=== PATIENT | female | born 1935 | race Caucasian/White ===

== ENCOUNTER 2017-11-25 23:14 | Inpatient (IN) | payer OTHER, MEDICARE ==
[~2017-11-25] VITALS: Ht 172.7 cm; Wt 51.0 kg
[~2017-11-25 23:14] MED LIST: ADVA250A INH; ALBU1AER INH; ASPI81 PO; CALC-137 PO; CLOP75 PO; COMBAER INH; ISOS60TA PO; LEVA500T33 PO; LIPI80TA16 PO; NITR.4 SL; RANI150T PO; SPIRCAP INH; TAB-TAB PO; VITA500015 PO; Z.0.OXYGEN INH; ZOFR4TAB PO
[2017-11-25 23:17] VITALS: BP 107/54; PULSE 94; RESP 26; TEMP 98; O2SAT 82
[2017-11-25] MEDS ORDERED: SODIUM CHLORIDE 0.9% FLUSH 10 ML FLUSH IVF PRN (23:30)
--- NOTE | 2017-11-25 23:32 | PD ---
HPI Chief Complaint: Shortness of breath Time Seen by Provider: 23:21 Travel History International Travel<30 days: No Contact w/Intl Traveler<30days: No History of Present Illness HPI 82-year-old female patient with history of COPD currently on 4 L O2 at home, hypertension, CAD with stents, previous NE presents to the ER today because she has had several days of worsening shortness of breath, coughing, nausea, and was vomiting. She denies any fevers, diarrhea, or other symptoms. When EMS got there, her saturations were in the 70s and they had started her on nebulizers and working and start BiPAP on her but she started vomiting. She was given Zofran. They noted that she had frequent PVCs, looked like trigeminy , and decided to give her a bolus of lidocaine which improved the PVCs, and then started on a lidocaine drip. Modifying Factors: None Associated Signs & Symptoms: Shortness of breath, vomiting, coughing, nausea Risk Factors: COPD, NE PFSH Past Medical History Asthma: No Heart Rhythm Problems: Yes (CORONARY ARTERY SPASAMS= STEMI) Cancer: No Cardiovascular Problems: Yes High Cholesterol: Yes Chest Pain: Yes Congestive Heart Failure: No COPD: Yes (3L NC) Cerebrovascular Accident: No Coronary Artery Disease: Yes Diminished Hearing: No Endocrine: No Gastrointestinal Disorders: Yes GERD: Yes Genitourinary: Yes Hiatal Hernia: No Hypertension: Yes Immune Disorder: No Kidney Stones: Yes Musculoskeletal: No Neurologic: No Psychiatric: No Reproductive: No Respiratory: Yes Myocardial Infarction: Yes (CORONARY ARTERY SPASAM= STEMI 1985) Renal Failure: No Sleep Apnea: No Ulcer: No Past Surgical History Abdominal Surgery: Yes (GALLBLADDER REMOVAL) Cardiac Surgery: No Cholecystectomy: Yes Coronary Stent: Yes (12/2011) Eye Surgery: Yes (L LENS IMPLANT) Thoracic Surgery: No Social History Alcohol Use: No Tobacco Use: No Substance Use: No Allergies-Medications (Allergen,Severity, Reaction): Coded Allergies: No Known Allergies (Unverified , 02/21/12) Reported Meds & Prescriptions Reported Meds & Active Scripts Active Reported Hydrocodone-Acetaminophen 5-325 mg Tab 1 Tab PO DAILYHS PRN [oxygen] Nitroglycerin SL (Nitroglycerin) 0.4 Mg Subl 0.4 Mg SL DIRECTED PRN ONE TABLET UNDER THE TONGUE NEEDED FOR CHEST PAIN, MAY REPEAT EVERY FIVE MINUTES FOR A TOTAL OF 3 DOSES OR CALL 911 IF NO RELIEF Multiple Vitamin 1 Tab 1 Tab PO DAILY Isosorbide Mononitrate ER (Isosorbide Mononitrate) 60 Mg Tab 60 Mg PO DAILY Proair Hfa 8.5 GM Inh (Albuterol Sulfate) 90 Mcg/Act Aer 2 Puff INH Q4H PRN 108 mcg/actuation Sertraline (Sertraline HCl) 50 Mg Tab 50 Mg PO DAILY Omeprazole 20 Mg Tab 20 Mg PO DAILY Benazepril (Benazepril HCl) 40 Mg Tab 40 Mg PO DAILY Ropinirole 0.5 Mg Tab 0.5 Mg PO HS Vitamin D3 (Cholecalciferol) 5,000 Unit Cap 5,000 Units PO DAILY Calcium Carbonate 1,500 Mg Tab 600 Mg PO DAILY 1,500 mg calcium carbonate (600 mg elemental calcium) Lipitor (Atorvastatin Calcium) 80 Mg Tab 80 Mg PO HS Aspirin 81 Mg Chew 81 Mg CHEW DAILY Review of Systems Except as stated in HPI: all other systems reviewed are Neg Physical Exam Narrative GENERAL: Well-developed elderly white female patient currently in mild respiratory distress. Awake and oriented 3. SKIN: Focused skin assessment warm/dry. HEAD: Atraumatic. Normocephalic. EYES: Pupils equal and round. No scleral icterus. No injection or drainage. ENT: No nasal bleeding or discharge. Mucous membranes pink and moist. NECK: Trachea midline. No JVD. Supple. CARDIOVASCULAR: Regularly irregular. No murmur appreciated. RESPIRATORY: Mild accessory muscle use. Coarse throughout. Breath sounds equal bilaterally. GASTROINTESTINAL: Abdomen soft, non-tender, nondistended. Hepatic and splenic margins not palpable. MUSCULOSKELETAL: No obvious deformities. No clubbing. No cyanosis. +1 pitting edema of both legs. NEUROLOGICAL: Awake and alert. No obvious cranial nerve deficits. Motor grossly within normal limits. Normal speech. PSYCHIATRIC: Appropriate mood and affect; insight and judgment normal. Data Data Last Documented VS Vital Signs Date Time Temp Pulse Resp B/P (MAP) Pulse Ox O2 Delivery O2 Flow Rate FiO2 11/26/17 02:44 76 127/60 (82) 99 BiPAP 11/26/17 02:00 50 11/25/17 23:25 4.00 11/25/17 23:17 98.0 26 Orders Orders Complete Blood Count With Diff (11/25/17 23:21) Comprehensive Metabolic Panel (11/25/17 23:21) B-Type Natriuretic Peptide (11/25/17 23:21) Act Partial Throm Time (Ptt) (11/25/17 23:21) Prothrombin Time / Inr (Pt) (11/25/17:) Magnesium (Mg) (11/25/17 23:) Ckmb (Isoenzyme) Profile (11/25/17 23:) Troponin I (11/25/17:) Arterial Blood Gas (Abg) (11/25/17:) Blood Culture (11/25/17:) Iv Access Insert/Monitor (11/25/17:) Electrocardiogram (11/25/17:) Ecg Monitoring (11/25/17:) Oximetry (11/25/17:) Oxygen Administration (11/25/17:) Chest, Single Ap (11/25/17:) Sodium Chloride 0.9% Flush (Ns Flush) (11/25/17 23:30) Lipase (11/25/17 23:) Digoxin (11/26/17 00:07) Resp Bipap / Cpap Non Invas Vt (11/26/17 ) CKMB (11/25/17 00:25) CKMB% (11/25/17 00:25) Aspirin (Aspirin) (11/26/17 02:00) Furosemide Inj (Lasix Inj) (11/26/17 02:45) Heparin Inj (Heparin Inj) (11/26/17 02:45) Heparin Inj (Heparin Inj) (11/26/17 08:45) Heparin Inj (Heparin Inj) (11/26/17 08:45) Act Partial Throm Time (Ptt) (11/26/17 02:33) Cbc No Diff, Includes Plts (11/26/17 02:33) Cbc No Diff, Includes Plts (11/29/17 06:00) Act Partial Throm Time (Ptt) (11/26/17 09:33) Occult Blood (Hemoccult) Stool (11/26/17 02:33) Consult Cardiology (11/26/17 ) Admit Order (Ed Use Only) (11/26/17 02:44) Heparin-D5w 25,000 U/250 Ml (Heparin-D5w (11/26/17 02:45) Labs Laboratory Tests Test 11/25/17 00:19 11/25/17 00:25 11/25/17 23:28 11/25/17 23:45 B-Type Natriuretic Peptide 1944 PG/ML Blood Urea Nitrogen 34 MG/DL Creatinine 2.94 MG/DL Random Glucose 160 MG/DL Total Protein 6.2 GM/DL Albumin 3.0 GM/DL Calcium Level 8.7 MG/DL Magnesium Level 2.1 MG/DL Alkaline Phosphatase 96 U/L Aspartate Amino Transf (AST/SGOT) 106 U/L Alanine Aminotransferase (ALT/SGPT) 52 U/L Total Bilirubin 0.6 MG/DL Sodium Level 138 MEQ/L Potassium Level 4.9 MEQ/L Chloride Level 104 MEQ/L Carbon Dioxide Level 21.0 MEQ/L Anion Gap 13 MEQ/L Estimat Glomerular Filtration Rate 15 ML/MIN Total Creatine Kinase 183 U/L Creatine Kinase MB 13.7 NG/ML Troponin I 6.28 NG/ML Lipase 143 U/L White Blood Count 9.9 TH/MM3 Red Blood Count 3.91 MIL/MM3 Hemoglobin 11.8 GM/DL Hematocrit 36.2 % Mean Corpuscular Volume 92.4 FL Mean Corpuscular Hemoglobin 30.2 PG Mean Corpuscular Hemoglobin Concent 32.7 % Red Cell Distribution Width 15.2 % Platelet Count 228 TH/MM3 Mean Platelet Volume 11.8 FL Neutrophils (%) (Auto) 74.5 % Lymphocytes (%) (Auto) 18.3 % Monocytes (%) (Auto) 6.5 % Eosinophils (%) (Auto) 0.0 % Basophils (%) (Auto) 0.7 % Neutrophils # (Auto) 7.4 TH/MM3 Lymphocytes # (Auto) 1.8 TH/MM3 Monocytes # (Auto) 0.6 TH/MM3 Eosinophils # (Auto) 0.0 TH/MM3 Basophils # (Auto) 0.1 TH/MM3 CBC Comment DIFF FINAL Differential Comment Blood Gas Puncture Site RT BRACHIAL Blood Gas Patient Temperature 98.6 Blood Gas HCO3 21 mmol/L Blood Gas Base Excess -4.5 mmol/L Blood Gas Oxygen Saturation 89 % Arterial Blood pH 7.30 Arterial Blood Partial Pressure CO2 43 mmHg Arterial Blood Partial Pressure O2 68 mmHG Arterial Blood Oxygen Content 14.7 Vol % Arterial Blood Carboxyhemoglobin 0.9 % Arterial Blood Methemoglobin 0.5 % Blood Gas Hemoglobin 11.6 G/DL Oxygen Delivery Device NASAL CANNULA Blood Gas Liter Flow 4 L/M Test 11/26/17 00:19 Digoxin Level LESS THAN 0.1 NG/ML MDM Medical Decision Making Medical Screen Exam Complete: Yes Emergency Medical Condition: Yes Medical Record Reviewed: Yes Interpretation(s) EKG shows normal sinus rhythm at a rate of 94 bpm with frequent PVCs every third beat. There is a right bundle branch block pattern. Laboratory Tests Test 11/25/17 00:19 11/25/17 00:25 11/25/17 23:28 11/25/17 23:45 B-Type Natriuretic Peptide 1944 PG/ML (0-100) Blood Urea Nitrogen 34 MG/DL (7-18) Creatinine 2.94 MG/DL (0.50-1.00) Random Glucose 160 MG/DL (74-106) Total Protein 6.2 GM/DL (6.4-8.2) Albumin 3.0 GM/DL (3.4-5.0) Aspartate Amino Transf (AST/SGOT) 106 U/L (15-37) Estimat Glomerular Filtration Rate 15 ML/MIN (>89) Creatine Kinase MB 13.7 NG/ML (0.5-3.6) Troponin I 6.28 NG/ML (0.02-0.05) Red Blood Count 3.91 MIL/MM3 (4.00-5.30) Mean Platelet Volume 11.8 FL (7.0-11.0) Neutrophils (%) (Auto) 74.5 % (16.0-70.0) Blood Gas HCO3 21 mmol/L (22-26) Blood Gas Base Excess -4.5 mmol/L (-2-2) Blood Gas Oxygen Saturation 89 % (90-100) Arterial Blood pH 7.30 (7.380-7.420) Arterial Blood Partial Pressure CO2 43 mmHg (38-42) Blood Gas Hemoglobin 11.6 G/DL (12.0-16.0) Test 11/26/17 00:19 Digoxin Level LESS THAN 0.1 NG/ML Differential Diagnosis CHF exacerbation versus pneumonia versus electrolyte abnormalities versus ACS Narrative Course Chest x-ray did show some signs of mild pulmonary edema but not show signs of acute pneumonia. EKG shows frequent PVCs and a right bundle branch block. Her exam is concerning for underlying CHF. She was given some albuterol initially but that does not help a whole lot and she was then put on BiPAP in the ER. Lidocaine drip was discontinued. Lab work returned showing fairly elevated BNP and also elevated troponin concerning for possible NE as well. Case was discussed with Dr. Hart who is covering for patient's day porter, Dr. Veras, and he states that the patient will need to be on nitroglycerin, Lasix, and is okay with her getting that despite the low blood pressure. Heparin will also need to be initiated with consult to them. Case was then discussed with Dr. De La Vega for admission for further treatment. Aggregate critical care time was 35 minutes. Time to perform other separately billable procedures was not included in the critical care time. My time did not include minutes spent treating any other patients simultaneously or on activities that did not directly contribute to the patient's treatment. The services I provided to this patient were to treat and/or prevent clinically significant deterioration that could result in: Worsening respiratory distress, respiratory failure, hypoxia, dysrhythmias, I provided critical care services requiring my management, as noted below: Chart data review, documentation time, medication orders and management, vital sign assessments/reviewing monitor data, ordering and reviewing lab tests, ordering and interpreting/reviewing x-rays and diagnostic studies, care of the patient and discussion of the patient with the admitting physicians. Diagnosis Primary Impression: CHF (congestive heart failure) Additional Impressions: NSTEMI (non-ST elevated myocardial infarction) Hypoxia Admitting Information Admitting Physician Requests: Admit Terrell Seth MD November 25, 2017 23:32
[2017-11-25 23:49] LABS: AUTOMATED NEUTROPHIL # 7.4 TH/MM3 (1.8-7.7); BASOPHIL # 0.1 TH/MM3 (0-0.2); BASOPHIL % 0.7 % (0.0-2.0); HEMATOCRIT 36.2 % (35.0-46.0); HEMOGLOBIN 11.8 GM/DL (11.6-15.3); LYMPH % 18.3 % (9.0-44.0); LYMPHOCYTE # 1.8 TH/MM3 (1.0-4.8); MEAN CELL VOLUME 92.4 FL (80.0-100.0); MEAN CORPUSCULAR HEMOGLOBIN 30.2 PG (27.0-34.0); MEAN CORPUSCULAR HGB CONC 32.7 % (32.0-36.0); MEAN PLATELET VOLUME 11.8 FL (7.0-11.0); MONO % 6.5 % (0.0-8.0); MONOCYTE # 0.6 TH/MM3 (0-0.9); NEUT % 74.5 % (16.0-70.0); PLATELET COUNT 228 TH/MM3 (150-450); RED BLOOD COUNT 3.91 MIL/MM3 (4.00-5.30); RED CELL DISTRIBUTION WIDTH 15.2 % (11.6-17.2); WHITE BLOOD COUNT 9.9 TH/MM3 (4.0-11.0)
--- NOTE | 2017-11-25 23:58 | RADRPT ---
EXAM DATE/TIME: 11/25/2017 23:39 [facility] COMPARISON: CHEST PA & LAT, August 01, 2011, 10:22. CHEST SINGLE AP, October 29, 2011, 23:53. INDICATIONS : Shortness of breath. MEDICAL HISTORY : None. SURGICAL HISTORY : None. ENCOUNTER: Initial ACUITY: 1 day PAIN SCORE: 5/10 LOCATION: Bilateral chest FINDINGS: A single view of the chest demonstrates the lungs to be symmetrically aerated without evidence of mas s, infiltrate or effusion. The pulmonary arteries remain prominent in appearance. Atherosclerotic chapo nges are present in the aorta. There is stable eventration hemidiaphragm. Right apical pleural-parenc hymal changes again noted consistent with scarring. The cardiomediastinal contours are unremarkable. Osseous structures are intact. CONCLUSION: Stable appearance with no acute cardiopulmonary disease. Jonathan Coughlin MD on November 25, 2017 at 23:54 Board Certified Radiologist. This report was verified electronically.
[2017-11-26] VITALS (15 sets, daily range): BP systolic 100–144; BP diastolic 54–87; PULSE 73–94; RESP 18–24; TEMP 97.7–98; O2SAT 92–99
[2017-11-26] MEDS ORDERED: ASPI-516 CHEW (00:57)
[2017-11-26] MEDS ORDERED: CHOL5000 PO (00:57)
[2017-11-26] MEDS ORDERED: LIPI80TA PO (00:57)
[2017-11-26] MEDS ORDERED: CALC600T4 PO (00:57)
[2017-11-26] MEDS ORDERED: SERT-132 PO (01:29)
[2017-11-26] MEDS ORDERED: OMEP20TA93 PO (01:29)
[2017-11-26] MEDS ORDERED: oxygen (01:29)
[2017-11-26] MEDS ORDERED: ISOS60TA PO (01:29)
[2017-11-26] MEDS ORDERED: ALBUAER3 INH (01:29)
[2017-11-26] MEDS ORDERED: BENA40TA PO (01:29)
[2017-11-26] MEDS ORDERED: ROPI0.5T PO (01:29)
[2017-11-26] MEDS ORDERED: MULTTAB67 PO (01:29)
[2017-11-26] MEDS ORDERED: NITR1SUB3 SL (01:29)
[2017-11-26] MEDS ORDERED: HYDR-3516 PO (01:29)
[2017-11-26 01:43] LABS: ALKALINE PHOSPHATASE 96 U/L (45-117); TOTAL BILIRUBIN ADULT 0.6 MG/DL (0.2-1.0); TOTAL PROTEIN 6.2 GM/DL (6.4-8.2)
[2017-11-26 01:45] LABS: ALT (GPT) 52 U/L (10-53); AST (GOT) 106 U/L (15-37); BLOOD UREA NITROGEN 34 MG/DL (7-18); CALCIUM 8.7 MG/DL (8.5-10.1); CHLORIDE 104 MEQ/L (98-107); CREATININE 2.94 MG/DL (0.50-1.00); GLOMERULAR FILTRATION RATE 15 ML/MIN (>89); GLUCOSE,RANDOM 160 MG/DL (74-106); MAGNESIUM 2.1 MG/DL (1.5-2.5); SODIUM (NA) 138 MEQ/L (136-145)
[2017-11-26 01:46] LABS: TROPONIN I 6.28 NG/ML (0.02-0.05)
[2017-11-26] MEDS ORDERED: ASPIRIN 325 MG TAB PO ONE (02:00)
[2017-11-26] MEDS ORDERED: SENNOSIDES 8.6 MG TAB PO PRN (02:45)
[2017-11-26] MEDS ORDERED: HEPARIN SODIUM - IV 10,000 UNITS/10 ML VIAL IV PUSH ONE (02:45)
[2017-11-26] MEDS ORDERED: SODIUM CHLORIDE 0.9% FLUSH 10 ML FLUSH IV FLUSH PRN (02:45)
[2017-11-26] MEDS ORDERED: BISACODYL 10 MG SUPP RECTAL PRN (02:45)
[2017-11-26] MEDS ORDERED: ACETAMINOPHEN 325 MG TAB PO PRN (02:45)
[2017-11-26] MEDS ORDERED: FUROSEMIDE 40 MG/4 ML VIAL IV PUSH ONE (02:45)
[2017-11-26] MEDS ORDERED: HEPARIN-D5W 25,000 U/250 ML 250 ML IV PRN ×2 (02:45)
[2017-11-26] MEDS ORDERED: MAGNESIUM HYDROXIDE SUSP 30 ML CUP PO PRN (02:45)
[2017-11-26] MEDS ORDERED: LACTULOSE SYRUP 20 GM/30 ML CUP PO PRN (02:45)
[2017-11-26] MEDS ORDERED: METOCLOPRAMIDE HCL 10 MG/2 ML VIAL IV PUSH PRN (02:45)
[2017-11-26] MEDS ORDERED: MORPHINE SULFATE 4 MG/ML INJ IV PUSH PRN (02:45)
--- NOTE | 2017-11-26 03:18 | HHI.HP ---
HPI Service [facility] Primary Care Physician Rachel Lozoya MD Admission Diagnosis Non-ST elevation FL/CHF Diagnoses: (1) NSTEMI (non-ST elevated myocardial infarction) Diagnosis: Principal (2) CHF (congestive heart failure) Diagnosis: Principal (3) COPD (chronic obstructive pulmonary disease) Diagnosis: Principal (4) Hypoxia Diagnosis: Principal (5) Renal insufficiency Diagnosis: Principal Travel History International Travel<30 Days: No Contact w/Intl Traveler <30 Da: No Traveled to Known Affected Are: No History of Present Illness This is an 82-year-old female with a PMH of HTN, Hyperlipidemia, CAD and O2 Dependent COPD who was brought to the ER by EMS secondary to c/o SOB and chest pain starting earlier this evening. Upon EMS arrival, pt hypoxic w/ O2 sat 70's , attempted CPAP but did not tolerate due to vomiting. Also noted to have multiple PVCs and started on Lidocaine by EMS. Upon arrival, BP 107/54, HR 94, O2 sat 82% on RA, Afebrile. ABG w/ pH 7.3, PCO2 43, PO2 68 on 4L NC, significant respiratory distress w/ persistent hypoxia and started on BIPAP in the ER. CBC unremarkable. Creatinine 2.94, previously 2.02 on 02/22/2012. Troponin 6.28. BNP 1944. CXR with no significant finding. Follows w/ Dr. Veras and Dr. Chan as outpatient. Cardiology consulted for NSTEMI, started on Heparin gtt. Currently chest pain free, SOB improved. No h/o CHF. Pt is very good historian w/ excellent knowledge of medical conditions, Grandson at bedside also very helpful. Review of Systems Except as stated in HPI: all other systems reviewed are Neg ROS: 14 point review of systems otherwise negative. Past Family Social History Past Medical History PMH: HTN, Hyperlipidemia, CAD and O2 Dependent COPD Past Surgical History PAST SURGICAL HISTORY: Cholecystectomy, Cardiac Stent, Lens Implant Allergies: Coded Allergies: No Known Allergies (Unverified , 02/21/12) Family History PAST FAMILY HISTORY: Reviewed. No h/o DM or CAD Social History PAST SOCIAL HISTORY: Negative for alcohol, tobacco or drugs. Physical Exam Vital Signs Vital Signs Date Time Temp Pulse Resp B/P (MAP) Pulse Ox O2 Delivery O2 Flow Rate FiO2 11/26/17 02:44 76 127/60 (82) 99 BiPAP 11/26/17 02:00 98 50 11/26/17 01:45 92 Venturi Mask 50 11/25/17 23:25 Nasal Cannula 4.00 11/25/17 23:25 85 Nasal Cannula 4.00 11/25/17 23:17 98.0 94 26 107/54 (71) 82 Physical Exam PE: GENERAL: Extremely pleasant elderly white female in no acute distress. On BiPAP. Grandson at bedside. HEENT: PERRLA, EOMI. No scleral icterus or conjunctival pallor. No lid lag or facial droop. CARDIOVASCULAR: Regular rate and rhythm. No obvious murmurs to auscultation. No chest tenderness to palpation. RESPIRATORY: No obvious rhonchi or wheezing. Clear to auscultation. Breath sounds equal bilaterally. GASTROINTESTINAL: Abdomen soft, non-tender, nondistended. BS normal. MUSCULOSKELETAL: Extremities without clubbing, cyanosis, or edema. No obvious deformities. NEUROLOGICAL: Awake, alert and oriented x4. No focal neurologic deficits. Moving both upper and lower extremities spontaneously. Laboratory Laboratory Tests Test 11/25/17 23:28 11/25/17 23:45 11/26/17 00:19 White Blood Count 9.9 Red Blood Count 3.91 Hemoglobin 11.8 Hematocrit 36.2 Mean Corpuscular Volume 92.4 Mean Corpuscular Hemoglobin 30.2 Mean Corpuscular Hemoglobin Concent 32.7 Red Cell Distribution Width 15.2 Platelet Count 228 Mean Platelet Volume 11.8 Neutrophils (%) (Auto) 74.5 Lymphocytes (%) (Auto) 18.3 Monocytes (%) (Auto) 6.5 Eosinophils (%) (Auto) 0.0 Basophils (%) (Auto) 0.7 Neutrophils # (Auto) 7.4 Lymphocytes # (Auto) 1.8 Monocytes # (Auto) 0.6 Eosinophils # (Auto) 0.0 Basophils # (Auto) 0.1 CBC Comment DIFF FINAL Differential Comment Blood Gas Puncture Site RT BRACHIAL Blood Gas Patient Temperature 98.6 Blood Gas HCO3 21 Blood Gas Base Excess -4.5 Blood Gas Oxygen Saturation 89 Arterial Blood pH 7.30 Arterial Blood Partial Pressure CO2 43 Arterial Blood Partial Pressure O2 68 Arterial Blood Oxygen Content 14.7 Arterial Blood Carboxyhemoglobin 0.9 Arterial Blood Methemoglobin 0.5 Blood Gas Hemoglobin 11.6 Oxygen Delivery Device NASAL CANNULA Blood Gas Liter Flow 4 Digoxin Level LESS THAN 0.1 Date/Time Source Procedure Growth Status 11/25/17 23:28 Blood Peripheral Aerobic Blood Culture Pending Received 11/25/17 23:28 Blood Peripheral Anaerobic Blood Culture Pending Received Result Diagram: 11/25/17 2328 11/25/17 0025 Caprini VTE Risk Assessment Caprini VTE Risk Assessment: Mod/High Risk (score >= 2) Caprini Risk Assessment Model Point Value = 1 Point Value = 2 Point Value = 3 Point Value = 5 Age 41-60 Minor surgery BMI > 25 kg/m2 Swollen legs Varicose veins or History of unexplained or recurrent spontaneous Oral contraceptives or hormone replacement Sepsis (< 1 month) Serious lung disease, including pneumonia (< 1 month) Abnormal pulmonary function Acute myocardial infarction Congestive heart failure (< 1 month) History of inflammatory bowel disease Medical patient at bed rest Age 61-74 Arthroscopic surgery Major open surgery (> 45 min) Laparoscopic surgery (> 45 min) Malignancy Confined to bed (> 72 hours) Immobilizing plaster cast Central venous access Age >= 75 History of VTE Family history of VTE Factor V Leiden Prothrombin [id number] Lupus anticoagulant Anticardiolipin antibodies Elevated serum homocysteine Heparin-induced thrombocytopenia Other congenital or acquired thrombophilia Stroke (< 1 month) Elective arthroplasty Hip, pelvis, or leg fracture Acute spinal cord injury (< 1 month) Prophylaxis Regimen Total Risk Factor Score Risk Level Prophylaxis Regimen 0-1 Low Early ambulation 2 Moderate Order ONE of the following: *Sequential Compression Device (SCD) *Heparin 5000 units SQ BID 3-4 Higher Order ONE of the following medications: *Heparin 5000 units SQ TID *Enoxaparin/Lovenox 40 mg SQ daily (WT < 150 kg, CrCl > 30 mL/min) *Enoxaparin/Lovenox 30 mg SQ daily (WT < 150 kg, CrCl > 10-29 mL/min) *Enoxaparin/Lovenox 30 mg SQ BID (WT < 150 kg, CrCl > 30 mL/min) AND/OR *Sequential Compression Device (SCD) 5 or more Highest Order ONE of the following medications: *Heparin 5000 units SQ TID (Preferred with Epidurals) *Enoxaparin/Lovenox 40 mg SQ daily (WT < 150 kg, CrCl > 30 mL/min) *Enoxaparin/Lovenox 30 mg SQ daily (WT < 150 kg, CrCl > 10-29 mL/min) *Enoxaparin/Lovenox 30 mg SQ BID (WT < 150 kg, CrCl > 30 mL/min) AND *Sequential Compression Device (SCD) Assessment and Plan Problem List: (1) NSTEMI (non-ST elevated myocardial infarction) ICD Code: I21.4 - Non-ST elevation (NSTEMI) myocardial infarction (2) CHF (congestive heart failure) ICD Code: I50.9 - Heart failure, unspecified (3) COPD (chronic obstructive pulmonary disease) ICD Code: J44.9 - Chronic obstructive pulmonary disease, unspecified (4) Hypoxia ICD Code: R09.02 - Hypoxemia (5) Renal insufficiency ICD Code: N28.9 - Disorder of kidney and ureter, unspecified Assessment and Plan A/P: 1. NSTEMI: c/o acute chest pain, Trop 6.28, started on Heparin gtt, admit to [facility], Cardiology consulted, will evaluate in am, NPO for likely cath, NTG/ Morphine as needed-caution w/ possible hypotension. Check serial cardiac enzymes for trend. Follow w/ Dr. Veras as outpatient, h/o stents 6yrs ago. 2. COPD: Chronic Respiratory Failure w/ associated respiratory distress, currently on BIPAP. Follows w/ Dr. Chan as outpatient, O2 dependent. Continue w/ DuoNeb as needed. Consult Dr. Chan for further evaluation/ recommendations. 3. CHF: No reported h/o CHF, heart failure likely due to acute FL, BNP 1944, s /p Lasix 40mg IV in ER, monitor I/O, caution w/ diuresis in light of renal insufficiency/borderline hypotension. 4. Hypoxia: Multifactorial-secondary to NSTEMI, COPD and CHF. O2 sat 70's upon EMS arrival, O2 sat 82% on RA while in ER w/ associated respiratory distress, currently on BIPAP, will continue, wean as tolerated, monitor O2. 5. Renal Insufficiency: Acute on Chronic. Creatinine 2.94, previously 2.02 on 02/22/2012. Monitor I/O, caution w/ diuresis, repeat labs in am. 6. DVT Prophylaxis: Heparin gtt 7. Social work for DC planning as needed. 8. Case discussed at length with the ER physician, lab/record/imaging reviewed by me. Physician Certification 2 Midnight Certification Type: Admission for Inpatient Services Order for Inpatient Services The services are ordered in accordance with Medicare regulations or non- Medicare payer requirements, as applicable. In the case of services not specified as inpatient-only, they are appropriately provided as inpatient services in accordance with the 2-midnight benchmark. Estimated LOS (days): 2 days is the estimated time the patient will need to remain in the hospital, assuming treatment plan goals are met and no additional complications. Post-Hospital Plan: Not yet determined Kristel De La Vega MD November 26, 2017 03:18
[2017-11-26 03:30] LABS: INTERNATIONAL NORMALIZED RATIO 1.1 RATIO; PROTHROMBIN TIME - PATIENT 11.4 SEC (9.8-11.6)
[2017-11-26 07:45] LABS: AUTOMATED NEUTROPHIL # 6.3 TH/MM3 (1.8-7.7); BASOPHIL % 0.3 % (0.0-2.0); HEMATOCRIT 33.9 % (35.0-46.0); HEMOGLOBIN 11.2 GM/DL (11.6-15.3); LYMPH % 20.2 % (9.0-44.0); LYMPHOCYTE # 1.9 TH/MM3 (1.0-4.8); MEAN CELL VOLUME 91.4 FL (80.0-100.0); MEAN CORPUSCULAR HEMOGLOBIN 30.2 PG (27.0-34.0); MEAN PLATELET VOLUME 10.9 FL (7.0-11.0); MONO % 11.4 % (0.0-8.0); MONOCYTE # 1.1 TH/MM3 (0-0.9); NEUT % 68.1 % (16.0-70.0); PLATELET COUNT 181 TH/MM3 (150-450); RED BLOOD COUNT 3.71 MIL/MM3 (4.00-5.30); RED CELL DISTRIBUTION WIDTH 14.9 % (11.6-17.2); WHITE BLOOD COUNT 9.3 TH/MM3 (4.0-11.0)
[2017-11-26 08:30] LABS: ALBUMIN 2.9 GM/DL (3.4-5.0); ALT (GPT) 63 U/L (10-53); AST (GOT) 118 U/L (15-37); BICARBONATE 24.7 MEQ/L (21.0-32.0); BLOOD UREA NITROGEN 37 MG/DL (7-18); CALCIUM 8.6 MG/DL (8.5-10.1); CHLORIDE 106 MEQ/L (98-107); CREATININE 3.13 MG/DL (0.50-1.00); GLOMERULAR FILTRATION RATE 14 ML/MIN (>89); GLUCOSE,RANDOM 100 MG/DL (74-106); SODIUM (NA) 140 MEQ/L (136-145)
[2017-11-26 08:33] LABS: ALKALINE PHOSPHATASE 93 U/L (45-117); TOTAL BILIRUBIN ADULT 0.4 MG/DL (0.2-1.0); TOTAL PROTEIN 6.4 GM/DL (6.4-8.2)
[2017-11-26] MEDS: DOCUSATE SODIUM 50 MG/SENNA 8.6 MG TAB PO SCH ×2 (08:34→21:00)
[2017-11-26] MEDS: SODIUM CHLORIDE 0.9% FLUSH 10 ML FLUSH IV FLUSH SCH ×2 (08:34→23:13)
[2017-11-26 08:38] LABS: TROPONIN I 6.82 NG/ML (0.02-0.05)
[2017-11-26] MEDS ORDERED: HEPARIN SODIUM - IV 10,000 UNITS/10 ML VIAL IV PUSH PRN ×2 (08:45)
[2017-11-26] MEDS: ASPIRIN 81 MG CHEW TAB CHEW SCH (09:25)
--- NOTE | 2017-11-26 10:37 | HHI.PR ---
Subjective Remarks Follow-up non-ST elevation [place]/respiratory failure/CHF exacerbation November 26, 2017-patient seen and examined, reports some improvement of shortness of breath currently on simple mask. Denies any chest pain. Denies any more emesis. Vital stable. Daughter by the bedside. Objective Vitals Vital Signs Date Time Temp Pulse Resp B/P (MAP) Pulse Ox O2 Delivery O2 Flow Rate FiO2 11/26/17 09:27 97 Venturi Mask 6.00 50 11/26/17 07:00 80 11/26/17 07:00 97.7 81 18 144/86 (105) 99 11/26/17 04:29 96 80 11/26/17 04:27 98.0 92 20 128/60 (82) 94 11/26/17 04:27 80 11/26/17 03:30 95 50 11/26/17 02:44 76 127/60 (82) 99 BiPAP 11/26/17 02:00 98 50 11/26/17 01:45 92 Venturi Mask 50 11/25/17 23:25 Nasal Cannula 4.00 11/25/17 23:25 85 Nasal Cannula 4.00 11/25/17 23:17 98.0 94 26 107/54 (71) 82 Result Diagram: 11/26/17 0720 11/26/17 0720 Imaging Last Impressions Chest X-Ray 11/25/171 Signed Impressions: Service Date/Time: Saturday, November 25, 2017 23:39 - CONCLUSION: Stable appearance with no acute cardiopulmonary disease. Jonathan Coughlin MD Objective Remarks GENERAL: NAD SKIN: Warm and dry. HEAD: Normocephalic. EYES: No scleral icterus. No injection or drainage. NECK: Supple, trachea midline. No JVD or lymphadenopathy. CARDIOVASCULAR: Regular rate and rhythm without murmurs, gallops, or rubs. RESPIRATORY: Breath sounds decrease bilaterally. No accessory muscle use. GASTROINTESTINAL: Abdomen soft, non-tender, nondistended. MUSCULOSKELETAL: No cyanosis, or edema. BACK: Nontender without obvious deformity. No CVA tenderness. A/P Problem List: (1) NSTEMI (non-ST elevated myocardial infarction) ICD Code: I21.4 - Non-ST elevation (NSTEMI) myocardial infarction (2) CHF (congestive heart failure) ICD Code: I50.9 - Heart failure, unspecified (3) COPD (chronic obstructive pulmonary disease) ICD Code: J44.9 - Chronic obstructive pulmonary disease, unspecified (4) Hypoxia ICD Code: R09.02 - Hypoxemia (5) Renal insufficiency ICD Code: N28.9 - Disorder of kidney and ureter, unspecified Assessment and Plan 82-year-old female with 1. NSTEMI: Currently on heparin drip, aspirin, statin NTG/Morphine as needed-caution w/ possible hypotension 2D echo pending Cardiology consultation pending and keep n.p.o. for evaluation for possible left heart catheterization 2. COPD: Chronic Respiratory Failure w/ associated respiratory distress, Currently off BiPAP, currently on BIPAP. Start Solu-Medrol 20 mg IV every 12 hours and continue w/ DuoNeb as needed. Consult Dr. Chan for further evaluation/recommendations. 3. CHF unknown type : Heart failure likely due to acute [place], BNP 1944, s/p Lasix 40mg IV in ER, monitor I/O, hold diuresis in light of renal insufficiency/borderline hypotension. Consider Entresto 4. Renal Insufficiency: Acute on Chronic. Creatinine 2.94, previously 2.02 on 02/22/2012. Monitor I/O, 5. DVT Prophylaxis: Heparin gtt Jarett Pacheco MD November 26, 2017 10:37
--- NOTE | 2017-11-26 13:43 | ECHRPT ---
Indication: CAD CONCLUSIONS The left ventricular systolic function is normal with an estimated ejection fraction of 55%. Wall thickness is normal. Normal left ventricular size. The right ventricle is moderately dilated. The right ventricular systoilc function is moderately decreased. The right atrial size is severely dilated. Anterior mitral valve leaflet prolapse. There is moderate tricuspid regurgitation. The estimated pulmonary arterial pressure is 53 mmHg. BP: / HR: 83 Rhythm: Sinus MEASUREMENTS (Male / Female) Normal Values Technical Quality:Fair 2D ECHO LV Diastolic Diameter PLAX 3.9 cm 4.2 - 5.9 / 3.9 - 5.3 cm LV Systolic Diameter PLAX 3.0 cm IVS Diastolic Thickness 1.1 cm 0.6 - 1.0 / 0.6 - 0.9 cm LVPW Diastolic Thickness 0.8 cm 0.6 - 1.0 / 0.6 - 0.9 cm LV Relative Wall Thickness 0.5 RV Internal Dim ED PLAX 4.2 cm LVOT Diameter 2.0 cm LA Systolic Diameter LX 3.7 cm 3.0 - 4.0 / 2.7 - 3.8 cm M-MODE Aortic Root Diameter MM 2.7 cm LA Systolic Diameter MM 3.6 cm LA Ao Ratio MM 1.3 AV Cusp Separation MM 1.9 cm DOPPLER AV Peak Velocity 132.0 cm/s AV Peak Gradient 7.0 mmHg LVOT Peak Velocity 89.1 cm/s LVOT Peak Gradient 3.2 mmHg AV Area Cont Eq pk 2.1 cm MV Area PHT 2.8 cm Mitral E Point Velocity 59.0 cm/s Mitral A Point Velocity 76.7 cm/s Mitral E to A Ratio 0.8 LV E' Lateral Velocity 7.5 cm/s Mitral E to LV E' Lateral Ratio 7.9 LV E' Septal Velocity 5.6 cm/s Mitral E to LV E' Septal Ratio 10.6 TR Peak Velocity 327.0 cm/s TR Peak Gradient 42.8 mmHg Right Atrial Pressure 10.0 mmHg Pulmonary Artery Systolic Pressu 52.8 mmHg Right Ventricular Systolic Press 52.8 mmHg FINDINGS LEFT VENTRICLE The left ventricular systolic function is normal with an estimated ejection fraction of 55%. Wall thickness is normal. Normal left ventricular size. RIGHT VENTRICLE The right ventricle is moderately dilated. The right ventricular systoilc function is moderately decreased. LEFT ATRIUM The left atrial size is normal. RIGHT ATRIUM The right atrial size is severely dilated. ATRIAL SEPTUM Normal atrial septal thickness without atrial level shunting by limited color doppler interrogation. AORTA The aortic root and proximal ascending aorta are normal in size on limited imaging. MITRAL VALVE Anterior mitral valve leaflet prolapse. AORTIC VALVE Trileaflet aortic valve. No aortic valve stenosis or regurgitation. TRICUSPID VALVE Structurally normal tricuspid valve. There is moderate tricuspid regurgitation. The estimated pulmonary arterial pressure is 52.8 mmHg. PULMONARY VALVE Mild pulmonary valve regurgitation. VESSELS The inferior vena cava is normal in size. PERICARDIUM No pericardial effusion. Tanner Espinosa MD, FACC (Electronically Signed) Final Date:26 Nov 2017 13:42
--- NOTE | 2017-11-26 13:59 | MB ---
cc: Balaji Faulkner MD, Arjun D MD DATE: 11/26/2017 HISTORY OF PRESENT ILLNESS: Ms. Celis is an 82-year-old white female with known COPD, oxygen dependent at home, followed by Dr. Chan as an outpatient, who has recently just been in a gradual decline. She says "I just don't feel well and I've had more shortness of breath". She does use Breo and a nebulizer at home with albuterol, but just has not gotten relief. She presented yesterday with increasing chest pressure, was concerned about her heart because she has known coronary disease and has had 2 previous stents. On presentation, she was hypoxic, also had notable elevations in her troponin to 6.2 and then 6.8, and CK-MB fraction was elevated as well as her BNP to 1944. BUN and creatinine also elevated at 37 and 3.1. She was admitted to the cardiac unit. Cardiology consult is pending. At the time of this consultation, she was awake, alert, comfortable at rest. O2 saturations on a Ventimask at 50%, 95-98%. No complaint of cough or congestion. Nothing to suggest a recent acute exacerbation or infection. Chest x-ray was actually clear. No heart failure or pneumonia. No significant effusions. White blood cell count 9300 with no significant left shift. Arterial blood gas on 4 liters, pO2 of 68, pH 7.3, pCO2 of 43. EKG consistent with ischemia. PAST MEDICAL HISTORY: In addition to COPD and coronary disease, she has had hypertension, hyperlipidemia, previous cholecystectomy and lens implant. ALLERGIES: NONE KNOWN. MEDICATIONS: Reviewed in the EMR. SOCIAL HISTORY: , living with her . Her family was apparently looking at their going to assisted living. There is no alcohol use. No current tobacco use. ALLERGIES: NONE KNOWN. PHYSICAL EXAMINATION: GENERAL: Elderly white female, comfortable at rest. VITAL SIGNS: 98 degrees, pulse 86, respirations 18, sat 95%. HEENT: Sclerae are anicteric. NECK: Veins are flat. CHEST: Diminished, but no basilar rales, no wheezes, no congestion. HEART: Regular rhythm. No harsh murmur. EXTREMITIES: No peripheral edema or calf tenderness and no cyanosis. DISCUSSION: Ms. Celis presents with a known history of coronary artery disease with chest pressure and elevated cardiac enzymes. Cardiology consult is pending. COPD is noted in her history, currently quite stable. We will continue her aerosol treatments just on a p.r.n. basis since she is comfortable at present and to avoid excessive stimulation of her heart in light of probable ischemia. A low dose of Solu-Medrol was begun, which is fine. We can continue that. Dr. Chan will see her back for routine followup tomorrow. Further diagnostic and/or therapeutic intervention will depend on her ongoing clinical course. R. MD RENAN Purcell/ALISHA , 01:25 PM , 01:58 PM
[2017-11-26] MEDS ORDERED: CLOPIDOGREL 300 MG TAB PO ONE (14:15)
--- NOTE | 2017-11-26 14:35 | MB ---
cc: Agus Hart MD DATE: 11/26/2017 REASON FOR CONSULTATION: For evaluation of elevated troponin. HISTORY OF PRESENT ILLNESS: Michelle Celis is a complicated 82-year-old female admitted with COPD exacerbation and found to have an elevated troponin. Her primary complaint is severe shortness of breath since she has been on a nonrebreather mask. She has known history of severe COPD. She has had several days of worsening shortness of breath, cough, nausea and vomiting. Denies any chest pain, but her cardiac enzymes are elevated. She has had some PVCs. She has got a longstanding history of COPD, CAD, chronic kidney disease and hypertension. Her coronary artery disease is particularly complicated. She had a cardiac catheterization, 12/20/2011. Left main coronary artery was normal and EF was normal. LAD was totally occluded after a small diagonal branch with prominent [id number] collaterals. Circumflex artery had a 90% posterolateral branch stenosis, felt to be too complicated to try to intervene upon. Right coronary artery had ostial and mid disease. On 03/14/2012, she went to outside hospital and had stent of the ostium of the right coronary artery and stent of the mid right coronary artery. It was felt this would improve the collaterals to the LAD and the rest could be treated medically. She has done fairly well. She had a nuclear stress test in [address] Carnes, which did not show ischemia. She denies any chest pain at this time. Of note, she could not be catheterized in the right arm at [facility]. They were unable to get through due to spasm. She had it done through the left groin and had a left pseudoaneurysm as a result, which has subsequently healed. PAST SURGICAL HISTORY: Laparoscopic cholecystectomy. FAMILY HISTORY: Noncontributory. SOCIAL HISTORY: Does not smoke or drink. PHYSICAL EXAMINATION: GENERAL: Frail, elderly white female. She is mildly tachypneic. She is wearing a mask. VITAL SIGNS: Charted. HEENT: Unremarkable. NECK: No JVD. No bruits. CHEST: Shows diffusely diminished breath sounds. CARDIAC: S1, S2, regular rate and rhythm, I/ systolic murmur. ABDOMEN: Soft, nontender. EXTREMITIES: No clubbing, cyanosis. Trace edema. LABORATORY AND DIAGNOSTIC DATA: Her EKG shows sinus rhythm. She has a new right bundle branch block and T waves in the anterior leads, which were not present on her old tracings. She has also had trigeminy on her EKG. Troponin 6.25. Creatinine is 2.94. Chest x-ray shows stable, no signs of CHF. IMPRESSION: 1. Chronic obstructive pulmonary disease exacerbation. COPD is severe. She is on home oxygen. 2. Severe coronary artery disease. Her troponins are elevated consistent with non-ST elevation myocardial infarction. This may be a type 2 myocardial infarction secondary to the COPD. She does not have angina. PLAN: I am going to treat her medically now with nitrates and Cardizem. I think the severity of her COPD contraindicates beta micheal, but might reassess that. I would like to re-add her statin, but her LFTs are elevated, so I will hold off on that. She is currently on IV heparin. I am going to put her on p.o. Plavix with a Plavix loading dose and then turn the heparin off and continue her on aspirin and Plavix long-term. I will follow with you. MD SAL Pugh/ALISHA , 02:14 PM , 02:34 PM
--- NOTE | 2017-11-26 17:14 | EKG ---
Date Performed: 11/25/2017 Time Performed: 23:21:21 PTAGE: 82 years EKG: Sinus rhythm WITH FREQUENT VENTRICULAR PREMATURE COMPLEXES RIGHT BUNDLE BRANCH BLOCK MODERATE T-WAVE ABNORMALITY ABNORMAL ECG Compared to PREVIOUS TRACING , RBBB and PVCs present DOCTOR: Tanner Espinosa Interpretating Date/Time 11/26/2017 17:13:08
[2017-11-26] MEDS: NITROGLYCERIN 2% OINT 1 GM PACKET TOPICAL SCH (17:35)
[2017-11-26] MEDS: DILTIAZEM HCL 30 MG TAB PO SCH (17:45)
[2017-11-26] MEDS: BUDESONIDE-FORMOTEROL 80/4.5 MCG INHALER INH SCH (22:22)
[2017-11-26] MEDS: ATORVASTATIN 80 MG TAB PO SCH (22:22)
[2017-11-26] MEDS: methylPREDNISolone SOD SUCC 40 MG/1 ML VIAL IV PUSH SCH (23:13)
[2017-11-27] VITALS (9 sets, daily range): BP systolic 98–150; BP diastolic 60–88; PULSE 73–99; RESP 18–22; TEMP 97.7–98.1; O2SAT 92–99
[2017-11-27 03:34] LABS: AUTOMATED NEUTROPHIL # 6.9 TH/MM3 (1.8-7.7); BASOPHIL % 0.4 % (0.0-2.0); EOSINOPHIL % 0.1 % (0.0-4.0); HEMATOCRIT 33.7 % (35.0-46.0); HEMOGLOBIN 11.2 GM/DL (11.6-15.3); LYMPH % 9.8 % (9.0-44.0); LYMPHOCYTE # 0.8 TH/MM3 (1.0-4.8); MEAN CELL VOLUME 90.8 FL (80.0-100.0); MEAN CORPUSCULAR HEMOGLOBIN 30.3 PG (27.0-34.0); MEAN CORPUSCULAR HGB CONC 33.4 % (32.0-36.0); MEAN PLATELET VOLUME 10.8 FL (7.0-11.0); MONO % 1.2 % (0.0-8.0); MONOCYTE # 0.1 TH/MM3 (0-0.9); NEUT % 88.5 % (16.0-70.0); PLATELET COUNT 175 TH/MM3 (150-450); RED BLOOD COUNT 3.71 MIL/MM3 (4.00-5.30); WHITE BLOOD COUNT 7.7 TH/MM3 (4.0-11.0)
[2017-11-27 03:55] LABS: ALBUMIN 2.9 GM/DL (3.4-5.0); AST (GOT) 110 U/L (15-37); BICARBONATE 27.9 MEQ/L (21.0-32.0); CALCIUM 8.5 MG/DL (8.5-10.1); CHLORIDE 103 MEQ/L (98-107); CREATININE 2.92 MG/DL (0.50-1.00); GLOMERULAR FILTRATION RATE 15 ML/MIN (>89); GLUCOSE,RANDOM 83 MG/DL (74-106); SODIUM (NA) 140 MEQ/L (136-145)
[2017-11-27 04:02] LABS: ALKALINE PHOSPHATASE 91 U/L (45-117); ALT (GPT) 67 U/L (10-53); BLOOD UREA NITROGEN 41 MG/DL (7-18); TOTAL BILIRUBIN ADULT 0.5 MG/DL (0.2-1.0); TOTAL PROTEIN 6.3 GM/DL (6.4-8.2)
[2017-11-27] MEDS: NITROGLYCERIN 2% OINT 1 GM PACKET TOPICAL SCH ×4 (04:36→17:25)
[2017-11-27] MEDS: DILTIAZEM HCL 30 MG TAB PO SCH ×4 (04:37→17:25)
[2017-11-27] MEDS: BUDESONIDE-FORMOTEROL 80/4.5 MCG INHALER INH SCH ×2 (08:54→21:00)
[2017-11-27] MEDS: CLOPIDOGREL 75 MG TAB PO SCH (08:54)
[2017-11-27] MEDS: ASPIRIN 81 MG CHEW TAB CHEW SCH (08:55)
[2017-11-27] MEDS: SODIUM CHLORIDE 0.9% FLUSH 10 ML FLUSH IV FLUSH SCH ×2 (08:56→21:00)
[2017-11-27] MEDS: DOCUSATE SODIUM 50 MG/SENNA 8.6 MG TAB PO SCH ×2 (08:56→21:14)
[2017-11-27] MEDS: methylPREDNISolone SOD SUCC 40 MG/1 ML VIAL IV PUSH SCH ×2 (08:56→21:12)
--- NOTE | 2017-11-27 11:55 | PD.CARD.PN ---
Subjective Subjective Remarks no chest pain Objective Medications Current Medications Medications (Trade) Dose Ordered Sig/Leo Route Start Time Stop Time Status Last Admin (NS Flush) 2 ml UNSCH PRN IV FLUSH 11/26/17 02:45 (NS Flush) 2 ml BID IV FLUSH 11/26/17 09:00 11/27/17 08:56 (Reglan Inj) 5 mg Q6H PRN IV PUSH 11/26/17 02:45 (Tylenol) 650 mg Q6H PRN PO 11/26/17 02:45 (Colon 5-325 Mg) 1 tab Q4H PRN PO 11/26/17 02:45 (Morphine Inj) 2 mg Q3H PRN IV PUSH 11/26/17 02:45 (Piper-Colace) 1 tab BID PO 11/26/17 09:00 (Milk Of Magnesia Liq) 30 ml Q12H PRN PO 11/26/17 02:45 (Senokot) 17.2 mg Q12H PRN PO 11/26/17 02:45 (Dulcolax Supp) 10 mg DAILY PRN RECTAL 11/26/17 02:45 (Lactulose Liq) 30 ml DAILY PRN PO 11/26/17 02:45 (Aspirin Chew) 81 mg DAILY CHEW 11/26/17 09:00 11/27/17 08:55 (Lipitor) 80 mg HS PO 11/26/17 21:00 11/26/17 22:22 (Duoneb Neb) 1 ampule Q4HR NEB PRN NEB 11/26/17 03:00 (SoluMEDROL INJ) 20 mg Q12HR IV PUSH 11/26/17 21:00 11/27/17 08:56 (Symbicort 80-4.5 Mcg Inh) 2 puff Q12HR INH 11/26/17 21:00 11/27/17 08:54 (Nitroglycerin 2% Oint) 0.5 inch Q6HR TOPICAL 11/26/17 18:00 11/27/17 06:00 (Cardizem) 30 mg Q6HR PO 11/26/17 18:00 11/27/17 06:00 (Plavix) 75 mg DAILY PO 11/27/17 09:00 11/27/17 08:54 Vital Signs / I&O Vital Signs Date Time Temp Pulse Resp B/P (MAP) Pulse Ox O2 Delivery O2 Flow Rate FiO2 11/27/17 11:03 80 11/27/17 11:03 98.1 80 20 119/75 (90) 99 11/27/17 11:02 99 Nasal Cannula 5.00 11/27/17 07:23 91 Nasal Cannula 4.00 11/27/17 07:22 73 11/27/17 07:21 98.1 73 18 103/60 (74) 98 11/27/17 03:00 97.7 99 20 150/88 (108) 98 11/27/17 03:00 87 Nasal Cannula 4.00 11/27/17 03:00 99 11/26/17 23:00 80 11/26/17 23:00 97.8 94 24 111/54 (73) 98 11/26/17 23:00 98 Nasal Cannula 4.00 11/26/17 22:15 97 Nasal Cannula 5.00 11/26/17 19:00 97.9 94 24 100/63 (75) 96 11/26/17 19:00 96 Nasal Cannula 4.00 11/26/17 19:00 73 11/26/17 16:09 99 Nasal Cannula 4.00 11/26/17 15:59 97 Nasal Cannula 6.00 11/26/17 15:00 86 11/26/17 15:00 96 Nasal Cannula 6.00 Humidified 11/26/17 15:00 97.9 83 18 128/84 (99) 96 I/O 11/26/17 11/26/17 11/26/17 11/27/17 11/27/17 11/27/17 06:59 14:59 22:59 06:59 14:59 22:59 Intake Total 348.3 ml 400 ml Output Total 300 ml 500 ml Balance 48.3 ml -100 ml Intake Oral 240 ml 400 ml IV Total 108.3 ml Output Urine Total 300 ml 500 ml # Voids 1 # Bowel Movements 1 0 0 Physical Exam alert non-toxic appearing Chest-severe decreased BS CV S1S2 RRR no edema Sats drop with minimal activity Laboratory Laboratory Tests Test 11/27/17 03:01 White Blood Count 7.7 TH/MM3 Red Blood Count 3.71 MIL/MM3 Hemoglobin 11.2 GM/DL Hematocrit 33.7 % Mean Corpuscular Volume 90.8 FL Mean Corpuscular Hemoglobin 30.3 PG Mean Corpuscular Hemoglobin Concent 33.4 % Red Cell Distribution Width 15.0 % Platelet Count 175 TH/MM3 Mean Platelet Volume 10.8 FL Neutrophils (%) (Auto) 88.5 % Lymphocytes (%) (Auto) 9.8 % Monocytes (%) (Auto) 1.2 % Eosinophils (%) (Auto) 0.1 % Basophils (%) (Auto) 0.4 % Neutrophils # (Auto) 6.9 TH/MM3 Lymphocytes # (Auto) 0.8 TH/MM3 Monocytes # (Auto) 0.1 TH/MM3 Eosinophils # (Auto) 0.0 TH/MM3 Basophils # (Auto) 0.0 TH/MM3 CBC Comment DIFF FINAL Differential Comment Blood Urea Nitrogen 41 MG/DL Creatinine 2.92 MG/DL Random Glucose 83 MG/DL Total Protein 6.3 GM/DL Albumin 2.9 GM/DL Calcium Level 8.5 MG/DL Alkaline Phosphatase 91 U/L Aspartate Amino Transf (AST/SGOT) 110 U/L Alanine Aminotransferase (ALT/SGPT) 67 U/L Total Bilirubin 0.5 MG/DL Sodium Level 140 MEQ/L Potassium Level 4.7 MEQ/L Chloride Level 103 MEQ/L Carbon Dioxide Level 27.9 MEQ/L Anion Gap 9 MEQ/L Estimat Glomerular Filtration Rate 15 ML/MIN Assessment and Plan Problem List: (1) COPD (chronic obstructive pulmonary disease) ICD Codes: J44.9 - Chronic obstructive pulmonary disease, unspecified Permanent Comment: End-stage Last Edited By: Agus Hart MD on November 27, 2017 11:55 (2) NSTEMI (non-ST elevated myocardial infarction) ICD Codes: I21.4 - Non-ST elevation (NSTEMI) myocardial infarction Plan: Medical therap (3) Renal insufficiency ICD Codes: N28.9 - Disorder of kidney and ureter, unspecified Agus Hart MD November 27, 2017 11:55
--- NOTE | 2017-11-27 14:33 | HHI.PR ---
Subjective Remarks Patient states on and off substernal chest pain and still short of breath. Reports breathing is not worse than normal. No coughing. No fevers or chills. He is interested in going to an assisted living facility in the future. States family has traveled down here to visit her. Objective Vitals Vital Signs Date Time Temp Pulse Resp B/P (MAP) Pulse Ox O2 Delivery O2 Flow Rate FiO2 11/27/17 11:03 80 11/27/17 11:03 98.1 80 20 119/75 (90) 99 11/27/17 11:02 99 Nasal Cannula 5.00 11/27/17 07:23 91 Nasal Cannula 4.00 11/27/17 07:22 73 11/27/17 07:21 98.1 73 18 103/60 (74) 98 11/27/17 03:00 97.7 99 20 150/88 (108) 98 11/27/17 03:00 87 Nasal Cannula 4.00 11/27/17 03:00 99 11/26/17 23:00 80 11/26/17 23:00 97.8 94 24 111/54 (73) 98 11/26/17 23:00 98 Nasal Cannula 4.00 11/26/17 22:15 97 Nasal Cannula 5.00 11/26/17 19:00 97.9 94 24 100/63 (75) 96 11/26/17 19:00 96 Nasal Cannula 4.00 11/26/17 19:00 73 11/26/17 16:09 99 Nasal Cannula 4.00 11/26/17 15:59 97 Nasal Cannula 6.00 11/26/17 15:00 86 11/26/17 15:00 96 Nasal Cannula 6.00 Humidified 11/26/17 15:00 97.9 83 18 128/84 (99) 96 I/O 11/26/17 11/26/17 11/26/17 11/27/17 11/27/17 11/27/17 07:00 15:00 23:00 07:00 15:00 23:00 Intake Total 348.3 ml 400 ml Output Total 300 ml 500 ml Balance 48.3 ml -100 ml Intake Oral 240 ml 400 ml IV Total 108.3 ml Output Urine Total 300 ml 500 ml # Voids 1 # Bowel Movements 1 0 0 Result Diagram: 11/27/17 0301 11/27/17 0301 A/P Problem List: (1) NSTEMI (non-ST elevated myocardial infarction) ICD Code: I21.4 - Non-ST elevation (NSTEMI) myocardial infarction Status: Acute (2) CHF (congestive heart failure) ICD Code: I50.9 - Heart failure, unspecified Status: Chronic (3) COPD (chronic obstructive pulmonary disease) ICD Code: J44.9 - Chronic obstructive pulmonary disease, unspecified Status: Acute Permanent Comment: End-stage Last Edited By: Agus Hart MD on November 27, 2017 11:55 (4) Hypoxia ICD Code: R09.02 - Hypoxemia Status: Chronic (5) Renal insufficiency ICD Code: N28.9 - Disorder of kidney and ureter, unspecified Status: Acute (6) CKD (chronic kidney disease), stage IV ICD Code: N18.4 - Chronic kidney disease, stage 4 (severe) Status: Chronic Assessment and Plan 82-year-old female with 1. NSTEMI: Currently on aspirin and Plavix and NTG and continue medical conservative treatment per cardiology. 2D echo Shows EF of 55% with moderate MR Appreciate cardiology recommendations. Recommend avoiding beta-micheal for now try low-dose Cardizem. 2. COPD, acute on chronic : ACute on Chronic Respiratory Failure w/ associated respiratory distress, Currently off BiPAP, currently on 5 L of O2, patient dependent on 4 L of O2 at baseline. Start Solu-Medrol 20 mg IV every 12 hours and continue w/ DuoNeb as needed. Patient requests Dr. Chan, her online marketing coordinator consultation. Avoid beta-blockers in light of severe COPD 3. CHF, chronic diastolic: Heart failure likely due to acute [place], BNP 1944, s/p Lasix 40mg IV in ER, monitor I/O, hold diuresis in light of renal insufficiency/borderline hypotension. 4. Renal Insufficiency: Acute on Chronic kidney disease stage IV. Creatinine 2.94, previously 2.02 on 02/22/2012. Monitor I/O, avoid nephrotoxins 5. DVT Prophylaxis: Heparin SQ Discharge Planning Patient interested in home health care versus [facility] particularly [facility]. We will have case management assist with disposition. Problem Qualifiers (1) CHF (congestive heart failure): Qualified Codes: I50.32 - Chronic diastolic (congestive) heart failure (2) COPD (chronic obstructive pulmonary disease): Qualified Codes: J44.1 - Chronic obstructive pulmonary disease with (acute) exacerbation Violette Olivia MD November 27, 2017 14:33
[2017-11-27] MEDS: HEPARIN SODIUM - SQ 10,000 UNITS/ML VIAL SQ SCH (17:35)
--- NOTE | 2017-11-27 19:42 | HHI.PR ---
Subjective Remarks 82 YO WF, Frail, Severe COPD with hypoxia, Ch RF Has NSTMI On 4LNC desaturates easily and takes her a while to recover No CP Objective Vital Signs Vital Signs Date Time Temp Pulse Resp B/P (MAP) Pulse Ox O2 Delivery O2 Flow Rate FiO2 11/27/17 15:00 98 Nasal Cannula 5.00 11/27/17 15:00 80 11/27/17 15:00 98.1 78 20 146/88 (107) 98 11/27/17 11:03 80 11/27/17 11:03 98.1 80 20 119/75 (90) 99 11/27/17 11:02 99 Nasal Cannula 5.00 11/27/17 08:58 96 Nasal Cannula 5.00 11/27/17 07:23 91 Nasal Cannula 4.00 11/27/17 07:22 73 11/27/17 07:21 98.1 73 18 103/60 (74) 98 11/27/17 03:00 97.7 99 20 150/88 (108) 98 11/27/17 03:00 87 Nasal Cannula 4.00 11/27/17 03:00 99 11/26/17 23:00 80 11/26/17 23:00 97.8 94 24 111/54 (73) 98 11/26/17 23:00 98 Nasal Cannula 4.00 11/26/17 22:15 97 Nasal Cannula 5.00 I/O 11/26/17 11/26/17 11/26/17 11/27/17 11/27/17 11/27/17 07:00 15:00 23:00 07:00 15:00 23:00 Intake Total 348.3 ml 400 ml 620 ml Output Total 300 ml 500 ml 450 ml Balance 48.3 ml -100 ml 170 ml Intake Oral 240 ml 400 ml 620 ml IV Total 108.3 ml Output Urine Total 300 ml 500 ml 450 ml # Voids 1 # Bowel Movements 1 0 0 1 Result Diagram: 11/27/17 03011/27/17 030 Objective Remarks GENERAL: Frail elderly WF, mild sob, weak SKIN: Warm and dry. HEAD: Normocephalic. EYES: No scleral icterus. No injection or drainage. NECK: Supple, trachea midline. No JVD or lymphadenopathy. CARDIOVASCULAR: Regular rate and rhythm without murmurs, gallops, or rubs. RESPIRATORY: Breath sounds equal bilaterally. No accessory muscle use. GASTROINTESTINAL: Abdomen soft, non-tender, nondistended. MUSCULOSKELETAL: No cyanosis, or edema. BACK: Nontender without obvious deformity. No CVA tenderness. A/P Assessment and Plan Severe COPD Hypoxia Ch Resp failure NSTMI CHF PLAN: Supplement 02 Aerosol nebs IV Solumedrol Plavix 75 mg daily Dw Pt Carlos Chan MD November 27, 2017 19:42
[2017-11-27] MEDS: ACETAMINOPHEN/HYDROcodone 325 MG/5 MG TAB PO PRN (21:13)
[2017-11-27] MEDS: ATORVASTATIN 80 MG TAB PO SCH (21:13)
[2017-11-27] MEDS: RESP: ALBUTEROL 2.5 MG/IPRATROPIUM 0.5 MG NEB (PRN) NEB (21:34)
[2017-11-28] VITALS (15 sets, daily range): BP systolic 104–124; BP diastolic 59–76; PULSE 77–110; RESP 17–20; TEMP 97.7–98.5; O2SAT 89–97
[2017-11-28] MEDS: NITROGLYCERIN 2% OINT 1 GM PACKET TOPICAL SCH ×4 (00:26→18:10)
[2017-11-28] MEDS: DILTIAZEM HCL 30 MG TAB PO SCH ×4 (00:26→18:10)
[2017-11-28] MEDS: ACETAMINOPHEN/HYDROcodone 325 MG/5 MG TAB PO PRN ×2 (00:31→22:48)
[2017-11-28] MEDS: HEPARIN SODIUM - SQ 10,000 UNITS/ML VIAL SQ SCH ×2 (04:49→15:47)
[2017-11-28] MEDS: ASPIRIN 81 MG CHEW TAB CHEW SCH (08:23)
[2017-11-28] MEDS: methylPREDNISolone SOD SUCC 40 MG/1 ML VIAL IV PUSH SCH ×3 (08:24→21:15)
[2017-11-28] MEDS: BUDESONIDE-FORMOTEROL 80/4.5 MCG INHALER INH SCH (08:24)
[2017-11-28] MEDS: CLOPIDOGREL 75 MG TAB PO SCH (08:24)
[2017-11-28] MEDS: SODIUM CHLORIDE 0.9% FLUSH 10 ML FLUSH IV FLUSH SCH ×2 (08:30→21:16)
--- NOTE | 2017-11-28 08:30 | HHI.PR ---
Subjective Remarks Pt states "I don't know how I feel yet". Per RN, pt had a bad night and would desat to the 80's w movement which required her being back on bipap. This morning she is back to 5 L NC. She is about to try to eat breakfast. Pt denies any worsening SOB, chest pains, nausea or vomiting. She states she feels very tired. Objective Vitals Vital Signs Date Time Temp Pulse Resp B/P (MAP) Pulse Ox O2 Delivery O2 Flow Rate FiO2 11/28/17 07:46 Nasal Cannula 5.00 11/28/17 07:33 92 Nasal Cannula 5.00 11/28/17 07:00 97.7 77 18 107/63 (78) 95 11/28/17 07:00 Bi-Pap 90 11/28/17 07:00 90 11/28/17 03:24 92 Bi-Pap 90 11/28/17 03:19 93 Bi-Pap 80 11/28/17 03:00 94 90 11/28/17 03:00 97.9 83 20 107/74 (85) 94 11/28/17 03:00 83 11/28/17 02:30 87 Venturi Mask 6.00 11/28/17 02:00 88 Venturi Mask 6.00 11/28/17 01:00 87 Venturi Mask 5.00 11/28/17 00:00 87 Venturi Mask 5.00 11/27/17 23:00 92 Nasal Cannula 5.00 11/27/17 23:00 97.8 83 22 98/60 (73) 93 11/27/17 23:00 84 11/27/17 22:15 20 11/27/17 21:35 97 Venturi Mask 50 11/27/17 19:00 84 11/27/17 19:00 92 Nasal Cannula 5.00 11/27/17 19:00 97.9 84 22 148/82 (104) 92 11/27/17 15:00 98 Nasal Cannula 5.00 11/27/17 15:00 80 11/27/17 15:00 98.1 78 20 146/88 (107) 98 11/27/17 11:03 80 11/27/17 11:03 98.1 80 20 119/75 (90) 99 11/27/17 11:02 99 Nasal Cannula 5.00 11/27/17 08:58 96 Nasal Cannula 5.00 I/O 11/27/17 11/27/17 11/27/17 11/28/17 11/28/17 11/28/17 07:00 15:00 23:00 07:00 15:00 23:00 Intake Total 400 ml 620 ml 200 ml Output Total 500 ml 450 ml 400 ml Balance -100 ml 170 ml -200 ml Intake Oral 400 ml 620 ml 200 ml Output Urine Total 500 ml 450 ml 400 ml # Bowel Movements 0 1 0 Result Diagram: 11/27/17 0301 11/27/17 0301 Imaging Last Impressions Chest X-Ray 11/25/17 2321 Signed Impressions: Service Date/Time: Saturday, November 25, 2017 23:39 - CONCLUSION: Stable appearance with no acute cardiopulmonary disease. Jonathan Coughlin MD Objective Remarks GENERAL: sitting up in bed, NC in place. able to complete her sentences CARDIOVASCULAR: Regular rate and rhythm without murmurs RESPIRATORY: decreased breath sounds, no wheezing. satting 90% NC 5L MUSCULOSKELETAL: trace edema. A/P Problem List: (1) NSTEMI (non-ST elevated myocardial infarction) ICD Code: I21.4 - Non-ST elevation (NSTEMI) myocardial infarction Status: Acute (2) CHF (congestive heart failure) ICD Code: I50.9 - Heart failure, unspecified Status: Chronic (3) COPD (chronic obstructive pulmonary disease) ICD Code: J44.9 - Chronic obstructive pulmonary disease, unspecified Status: Acute Permanent Comment: End-stage Last Edited By: Agus Hart MD on November 27, 2017 11:55 (4) Hypoxia ICD Code: R09.02 - Hypoxemia Status: Chronic (5) Renal insufficiency ICD Code: N28.9 - Disorder of kidney and ureter, unspecified Status: Acute (6) CKD (chronic kidney disease), stage IV ICD Code: N18.4 - Chronic kidney disease, stage 4 (severe) Status: Chronic Assessment and Plan 82-year-old female with 1. NSTEMI: on aspirin and Plavix, lipitor and NTG and continue medical conservative treatment per cardiology. 2D echo Shows EF of 55% with moderate MR Appreciate cardiology recommendations. Recommend avoiding beta-micheal for now try low-dose Cardizem. 2. COPD, acute on chronic : ACute on Chronic Respiratory Failure w/ associated respiratory distress, required BiPAP overnight, currently on 5 L of O2, patient dependent on 4 L of O2 at baseline. On Solu-Medrol 20 mg IV every 12 hours and continue w/ DuoNeb as needed. Dr. Chan, her coastal and estuary specialist following as well. appreciate recs Avoid beta-blockers in light of severe COPD 3. CHF, chronic diastolic: Heart failure likely due to acute [place], BNP 1944, s/p Lasix 40mg IV in ER, monitor I/O, hold diuresis in light of renal insufficiency/borderline hypotension. Fluid restriction 1500ml/day 4. Renal Insufficiency: Acute on Chronic kidney disease stage IV. Creatinine 2.94, previously 2.02 on 02/22/2012. Monitor I/O, avoid nephrotoxins 5. DVT Prophylaxis: Heparin SQ PT on case, appreciate recs. Not able to work w pt yet due to pt's desatting. Hopefully she can work w PT soon. Discharge Planning Patient interested in home health care versus [facility] particularly [facility]. CM assisting w d/c planning Problem Qualifiers (1) CHF (congestive heart failure): Qualified Codes: I50.32 - Chronic diastolic (congestive) heart failure (2) COPD (chronic obstructive pulmonary disease): Qualified Codes: J44.1 - Chronic obstructive pulmonary disease with (acute) exacerbation Shavon Reed MD November 28, 2017 08:30
[2017-11-28] MEDS: DOCUSATE SODIUM 50 MG/SENNA 8.6 MG TAB PO SCH ×2 (08:31→21:00)
[2017-11-28] MEDS: RESP: ALBUTEROL 2.5 MG/IPRATROPIUM 0.5 MG NEB (PRN) NEB ×2 (08:40→11:17)
[2017-11-28 08:47] LABS: BICARBONATE 26.9 MEQ/L (21.0-32.0); CALCIUM 8.5 MG/DL (8.5-10.1); CREATININE 2.45 MG/DL (0.50-1.00)
[2017-11-28] MEDS ORDERED: methylPREDNISolone SOD SUCC 125 MG/2 ML VIAL ONE (12:12)
--- NOTE | 2017-11-28 12:13 | HHI.PR ---
Addendum to Inpatient Note Addendum Reason: Additional Documentation Additional Information I came to see pt and give an update to pt's daughter of her condition when I was notified by RN that pt had been placed again on bipap (75% fio2) due to low sats in the low 80's. I spoke w Dr. Stubbs (manager machine) and he recommended increasing Fio2 to 100% and change settings to 15/5. Pt herself wishes to get a trial of intubation if needed. Therefore code status is full code for now. Pt wishes that in the event she gets intubated, she would like her daughter Sharon Lux to make decisions on her behalf. [phone] (cell) or [phone] ( home). Stat ABG was ordered and results were given to Dr. Stubbs as well. Stat chest -xray pending. Official consult to manager machine placed. A palliative care consult might be beneficial but will defer to manager machine. Shavon Reed MD November 28, 2017 12:13
[2017-11-28] MEDS ORDERED: FUROSEMIDE 40 MG/4 ML VIAL ONE (12:20)
[2017-11-28] MEDS ORDERED: FUROSEMIDE 40 MG/4 ML VIAL IV PUSH ONE ×2 (12:30→15:00)
[2017-11-28] MEDS: INSULIN NovoLIN REGULAR SUPPLEMENTAL SCALE SQ SCH ×3 (13:00→21:00)
[2017-11-28] MEDS ORDERED: DEXTROSE 50% IN WATER 50 ML VIAL(D50) IV PUSH PRN (13:00)
[2017-11-28] MEDS: FAMOTIDINE 20 MG/2 ML VIAL IV PUSH SCH (13:00)
[2017-11-28] MEDS ORDERED: GLUCAGON 1 MG/ML VIAL OTHER PRN (13:00)
[2017-11-28] MEDS ORDERED: RESP: ALBUTEROL 2.5 MG/IPRATROPIUM 0.5 MG NEB (PRN) NEB (13:15)
--- NOTE | 2017-11-28 13:33 | PD.CARD.PN ---
Subjective Subjective Remarks no chest pain Objective Medications Current Medications Medications (Trade) Dose Ordered Sig/Leo Route Start Time Stop Time Status Last Admin (NS Flush) 2 ml UNSCH PRN IV FLUSH 11/26/17 02:45 (NS Flush) 2 ml BID IV FLUSH 11/26/17 09:00 11/28/17 08:30 (Tylenol) 650 mg Q6H PRN PO 11/26/17 02:45 ([place] 5-325 Mg) 1 tab Q4H PRN PO 11/26/17 02:45 11/28/17 00:31 (Morphine Inj) 2 mg Q3H PRN IV PUSH 11/26/17 02:45 (Piper-Colace) 1 tab BID PO 11/26/17 09:00 11/27/17 21:14 (Senokot) 17.2 mg Q12H PRN PO 11/26/17 02:45 (Dulcolax Supp) 10 mg DAILY PRN RECTAL 11/26/17 02:45 (Lactulose Liq) 30 ml DAILY PRN PO 11/26/17 02:45 (Aspirin Chew) 81 mg DAILY CHEW 11/26/17 09:00 11/28/17 08:23 (Lipitor) 80 mg HS PO 11/26/17 21:00 Future Hold 11/27/17 21:13 (Nitroglycerin 2% Oint) 0.5 inch Q6HR TOPICAL 11/26/17 18:00 11/28/17 00:26 (Cardizem) 30 mg Q6HR PO 11/26/17 18:00 11/28/17 00:26 (Plavix) 75 mg DAILY PO 11/27/17 09:00 11/28/17 08:24 (Heparin Inj) 5,000 units Q12H SQ 11/27/17 15:00 11/28/17 04:49 (SoluMEDROL INJ) 60 mg Q8HR IV PUSH 11/28/17 14:00 11/28/17 12:00 Ceftriaxone Sodium 1000 mg/ Sodium Chloride 100 ml @ 200 mls/hr Q24H IV 11/28/17 14:00 (D50w (Vial) Inj) 50 ml UNSCH PRN IV PUSH 11/28/17 13:00 UNV (Glucagon Inj) 1 mg UNSCH PRN OTHER 11/28/17 13:00 UNV (NovoLIN R SUPPLEMENTAL SCALE) 1 Q4H SQ 11/28/17 13:00 UNV (Pepcid Inj) 10 mg Q12H IV PUSH 11/28/17 13:00 UNV (Pulmicort Respule Neb) 0.25 mg Q12HR NEB NEB 11/28/17 13:00 UNV (Duoneb Neb) 1 ampule Q4HR NEB NEB 11/28/17 16:00 UNV (Duoneb Neb) 1 ampule Q2HR NEB PRN NEB 11/28/17 13:15 UNV Vital Signs / I&O Vital Signs Date Time Temp Pulse Resp B/P (MAP) Pulse Ox O2 Delivery O2 Flow Rate FiO2 11/28/17 11:18 90 75 11/28/17 11:17 100 11/28/17 11:00 98.3 90 18 110/62 (78) 89 11/28/17 09:02 Bi-Pap 85 11/28/17 09:00 81 18 104/62 (76) 95 11/28/17 08:53 91 85 11/28/17 08:00 80 20 110/60 (77) 11/28/17 07:46 Nasal Cannula 5.00 11/28/17 07:33 92 Nasal Cannula 5.00 11/28/17 07:00 97.7 77 18 107/63 (78) 95 11/28/17 07:00 Bi-Pap 90 11/28/17 07:00 90 11/28/17 03:24 92 Bi-Pap 90 11/28/17 03:19 93 Bi-Pap 80 11/28/17 03:00 94 90 11/28/17 03:00 97.9 83 20 107/74 (85) 94 11/28/17 03:00 83 11/28/17 02:30 87 Venturi Mask 6.00 11/28/17 02:00 88 Venturi Mask 6.00 11/28/17 01:00 87 Venturi Mask 5.00 11/28/17 00:00 87 Venturi Mask 5.00 11/27/17 23:00 92 Nasal Cannula 5.00 11/27/17 23:00 97.8 83 22 98/60 (73) 93 11/27/17 23:00 84 11/27/17 22:15 20 11/27/17 21:35 97 Venturi Mask 50 11/27/17 19:00 84 11/27/17 19:00 92 Nasal Cannula 5.00 11/27/17 19:00 97.9 84 22 148/82 (104) 92 11/27/17 15:00 98 Nasal Cannula 5.00 11/27/17 15:00 80 11/27/17 15:00 98.1 78 20 146/88 (107) 98 I/O 11/27/17 11/27/17 11/27/17 11/28/17 11/28/17 11/28/17 06:59 14:59 22:59 06:59 14:59 22:59 Intake Total 400 ml 620 ml 200 ml Output Total 500 ml 450 ml 400 ml Balance -100 ml 170 ml -200 ml Intake Oral 400 ml 620 ml 200 ml Output Urine Total 500 ml 450 ml 400 ml # Bowel Movements 0 1 0 Physical Exam alert non-toxic appearing Chest-severe decreased BS CV S1S2 RRR no edema Sats drop with minimal activity Laboratory Laboratory Tests Test 11/28/17 03:30 11/28/17 11:51 Blood Urea Nitrogen 43 MG/DL Creatinine 2.45 MG/DL Random Glucose 122 MG/DL Calcium Level 8.5 MG/DL Sodium Level 136 MEQ/L Potassium Level 4.8 MEQ/L Chloride Level 99 MEQ/L Carbon Dioxide Level 26.9 MEQ/L Anion Gap 10 MEQ/L Estimat Glomerular Filtration Rate 19 ML/MIN Blood Gas Puncture Site RT RADIAL Blood Gas Patient Temperature 98.6 Blood Gas HCO3 28 mmol/L Blood Gas Base Excess 2.4 mmol/L Blood Gas Oxygen Saturation 85 % Arterial Blood pH 7.33 Arterial Blood Partial Pressure CO2 54 mmHg Arterial Blood Partial Pressure O2 57 mmHg Arterial Blood Oxygen Content 14.0 Vol % Arterial Blood Carboxyhemoglobin 0.7 % Arterial Blood Methemoglobin 1.4 % Blood Gas Hemoglobin 11.7 G/DL Oxygen Delivery Device BIPAP Blood Gas Ventilator Setting IPAP10/EPAP5 Blood Gas Inspired Oxygen 75 % Assessment and Plan Problem List: (1) COPD (chronic obstructive pulmonary disease) ICD Codes: J44.9 - Chronic obstructive pulmonary disease, unspecified Status: Acute Permanent Comment: End-stage Last Edited By: Agus Hart MD on November 27, 2017 11:55 (2) NSTEMI (non-ST elevated myocardial infarction) ICD Codes: I21.4 - Non-ST elevation (NSTEMI) myocardial infarction Status: Acute Plan: no invasive treatment due to the severity of her lung disease (3) Renal insufficiency ICD Codes: N28.9 - Disorder of kidney and ureter, unspecified Status: Acute Problem Qualifiers (1) COPD (chronic obstructive pulmonary disease): Qualified Codes: J44.1 - Chronic obstructive pulmonary disease with (acute) exacerbation Agus Hart MD November 28, 2017 13:33
--- NOTE | 2017-11-28 13:39 | MB ---
cc: Zoe Tatum MD DATE: 11/28/2017 HISTORY OF PRESENT ILLNESS: The patient is an 82-year-old female with past medical history of coronary artery disease, COPD on 4 liters oxygen at home continuously, hypertension and hyperlipidemia, who was admitted to [facility] on 11/26/2017 under hospitalist service for non-ST elevation SD and COPD exacerbation. She had elevated troponin of 6.28 on arrival. In addition, the patient has renal dysfunction with a creatinine of 2.94 on 11/25/2017, which improved slightly to 2.45 today. During her hospital course, she was seen by Dr. Hart from Cardiology service and Dr. Chan from pulmonary. A chest x-ray on arrival showed no evidence of any acute cardiopulmonary disease. She was treated with bronchodilators, steroids for her COPD. The patient had an echocardiogram on 11/26/2017, which showed an EF of 55%, moderate tricuspid regurgitation and mild pulmonary hypertension with a PA pressure of 53 mmHg. She was placed on BiPAP earlier today and ABG was performed on BiPAP 10/ with 75% FIO2, which showed a pH of 7.33, CO2 54, PaO2 57, bicarbonate 28 and saturation of 85%. Critical care medicine was consulted for critical care management. The patient desaturates easily with movements, per nursing staff. When seen, she remained on the BiPAP with a saturation of 90%. Blood pressure 110/62 with a pulse of 100. PAST MEDICAL HISTORY: Significant for hypertension, hyperlipidemia, coronary artery disease, COPD on 4 liters oxygen at home. PAST SURGICAL HISTORY: Previous cholecystectomy, previous cardiac stent placement, previous lens implant. ALLERGIES: NO KNOWN DRUG ALLERGIES. FAMILY HISTORY: Noncontributing to present illness. SOCIAL HISTORY: Nonsmoker, nondrinker. CURRENT MEDICATIONS: Include: Solu-Medrol, heparin subQ, Plavix, Symbicort, Cardizem, aspirin. REVIEW OF SYSTEMS: As per HPI. The rest of the review of systems is unremarkable. PHYSICAL EXAMINATION: GENERAL: An 82-year-old female lying in bed on a BiPAP, in mild respiratory distress. VITAL SIGNS: Temperature 98.3, pulse of 90-100, respiratory rate of 18, blood pressure 110/62, saturation 90% on BiPAP. HEENT: Atraumatic, normocephalic. Pupils equal, round, reactive to light and accommodation. Extraocular muscles intact. Conjunctivae pink. Nonicteric sclerae. Oral mucosa within normal. NECK: Supple. No JVD, adenopathy or thyromegaly. Trachea in the midline. HEART: Tachycardic. Normal S1, S2. No murmurs, rubs or gallops noted. PULMONARY: Bilateral equal air entry, overall diminished. ABDOMEN: Soft, nontender. No distention. Positive bowel sounds. EXTREMITIES: No cyanosis, clubbing or edema. NEUROLOGIC: No focal sensory deficit. LABORATORY DATA: Sodium 136, potassium 4.8, chloride 99, CO2 26, BUN 43, creatinine 2.45, glucose 122, total bilirubin 0.5, AST 110, ALT 67. WBC 7.7, hemoglobin 11.2, hematocrit 33, platelet count 175. RADIOGRAPHIC STUDIES: Chest x-ray on 11/25/2017, showed no evidence of any acute cardiopulmonary disease. IMPRESSION: 1. Acute hypoxemic and hypercapnic respiratory failure. 2. Chronic obstructive pulmonary disease exacerbation on 4 liters home oxygen. 3. Acute on chronic kidney disease. 4. Non-ST elevation myocardial infarction. 5. Elevated liver enzymes. 6. Hypertension. 7. Coronary artery disease. 8. Hyperlipidemia. RECOMMENDATIONS: 1. Monitor neuro status and avoid any sedatives. 2. Continue with oxygen and maintain sats above 92%. 3. Bronchodilators in the form of DuoNeb q. 4 plus q. 2 hours p.r.n. for shortness of breath. In addition, we will continue with Symbicort, increased to 160/4.5 two puffs q. 12 hours. 4. Increase Solu-Medrol to 60 mg IV q. 8 hours. 5. Continue with noninvasive positive pressure ventilation. We will repeat ABG. If there is any worsening in respiratory status or clinical condition, we will proceed with intubation and mechanical ventilation. Discussed possible intubation with the patient and her daughter at the bedside and she was agreeable for intubation if needed. 6. Monitor heart rate and blood pressure closely and maintain MAP greater than 65 mmHg. Continue with Cardizem 30 mg q. 6 hours, Plavix 75 mg daily, nitroglycerin 0.5 topical q. 6 hours. Cardiology service is following. Echocardiogram from 11/26/2017, showed an EF of 55%, moderate pulmonary hypertension with a PA pressure 53 mmHg and moderate tricuspid regurgitation. 7. Monitor renal function, I's and O's and avoid nephrotoxins. We will consult nephrology service and will obtain an ultrasound of the abdomen to rule out hydronephrosis. We will diurese with Lasix 40 mg IV x 1. 8. Keep n.p.o. for now until respiratory status improves and will place on Pepcid 10 mg IV q. 12 hours for GI prophylaxis. 9. Monitor liver enzymes. Check hepatitis profile panel and will obtain an ultrasound of the liver. Hold Lipitor for now due to elevated liver enzymes. 10. Place her on empiric antibiotics for COPD exacerbation in the form of Rocephin 1 gram daily. Monitor for signs of infection, which include fever and WBC. We will obtain urinalysis with culture if needed and will repeat chest x-ray. A chest x-ray from 11/25/2017, showed no evidence of any acute disease. 11. Monitor CBC. 12. Place on sliding scale insulin with Accu-Cheks for glycemic control, as the patient is on IV steroids. 13. Gastrointestinal prophylaxis with Pepcid and DVT prophylaxis with SCDs and heparin subQ. 14. Consult Palliative Care to assist with goals of care. 15. Further recommendations will be based on hospital course. MD EMMA Edwards/GARY , 12:58 PM , 01:38 PM
[2017-11-28 13:49] LABS: AUTOMATED NEUTROPHIL # 8.9 TH/MM3 (1.8-7.7); BASOPHIL % 0.1 % (0.0-2.0); HEMATOCRIT 35.4 % (35.0-46.0); HEMOGLOBIN 11.8 GM/DL (11.6-15.3); LYMPHOCYTE # 0.4 TH/MM3 (1.0-4.8); MEAN CELL VOLUME 91.2 FL (80.0-100.0); MEAN CORPUSCULAR HEMOGLOBIN 30.3 PG (27.0-34.0); MEAN CORPUSCULAR HGB CONC 33.3 % (32.0-36.0); MONO % 2.8 % (0.0-8.0); MONOCYTE # 0.3 TH/MM3 (0-0.9); NEUT % 93.1 % (16.0-70.0); PLATELET COUNT 221 TH/MM3 (150-450); RED BLOOD COUNT 3.89 MIL/MM3 (4.00-5.30); RED CELL DISTRIBUTION WIDTH 14.8 % (11.6-17.2); WHITE BLOOD COUNT 9.6 TH/MM3 (4.0-11.0)
--- NOTE | 2017-11-28 13:58 | RADRPT ---
EXAM DATE/TIME: 11/28/2017 12:33 [facility] COMPARISON: CHEST SINGLE AP, November 25, 2017, 23:39. INDICATIONS : Short of breath. MEDICAL HISTORY : Myocardial infarction. Hypercholesterolemia. Chronic obstructive pulmonary disease. Renal calculi . CAD. SURGICAL HISTORY : Cholecystectomy. ENCOUNTER: Subsequent ACUITY: 3 days PAIN SCORE: 0/10 LOCATION: chest FINDINGS: The heart is enlarged. There are small bilateral effusions. There is diffuse interstitial prominence suggesting congestive failure. The visualized bony structures are grossly intact. CONCLUSION: 1. Bilateral effusions and interstitial prominence suggesting congestive failure. The effusions appea r minimally larger than previous seen on 11/25/17. Deven Caceres MD on November 28, 2017 at 13:53 Board Certified Radiologist. This report was verified electronically.
[2017-11-28 14:09] LABS: ALBUMIN 3.2 GM/DL (3.4-5.0); ALT (GPT) 78 U/L (10-53); AST (GOT) 83 U/L (15-37); BICARBONATE 28.7 MEQ/L (21.0-32.0); BLOOD UREA NITROGEN 45 MG/DL (7-18); CALCIUM 8.8 MG/DL (8.5-10.1); CHLORIDE 99 MEQ/L (98-107); CREATININE 2.39 MG/DL (0.50-1.00); GLOMERULAR FILTRATION RATE 19 ML/MIN (>89); GLUCOSE,RANDOM 127 MG/DL (74-106); SODIUM (NA) 136 MEQ/L (136-145)
[2017-11-28 14:11] LABS: ALKALINE PHOSPHATASE 94 U/L (45-117); TOTAL BILIRUBIN ADULT 0.5 MG/DL (0.2-1.0); TOTAL PROTEIN 6.7 GM/DL (6.4-8.2)
--- NOTE | 2017-11-28 14:33 | PD.CONS ---
Consult Service Palliative Care . Consult Requested By Dr. Victoria . Primary Care Physician Rachel Lozoya MD . Reason for Consultation a. To assist with evaluation and management of symptoms including: dyspnea, debility, pain b. To assist medical decision maker(s) with: better understanding of current medical conditions; weighing benefits/burdens of medical treatment options; making medical treatment decisions. . HPI History of Present Illness Patient is an 82 year old female with COPD on 4L supplemental oxygen at home, hypertension, CHELSEA, CKD CAD status post stents and previous AL who presented to [place] ED on 11/25/2017 for progressively worsening shortness of breath, coughing, nausea and vomiting that developed several days prior. Apparently 911 was activated. Upon EMS arrival, the patent's oxygen saturations were in the 70s. Patient was started on nebulizers and BiPAP when she began to vomit. She was given Zofran. Patient was noted to be having frequent PVCs,looked like trigeminy. The patient was administered a bolus of lidocaine which improved PVCs; she was then started on a lidocaine drip. Patient follows Dr. Veras and Dr. Chan as outpatient. Additional diagnostic data: * Vital signs: Pulse 94, respirations 26, BP 107/54, oxygen saturation 85% on 4 L via nasal cannula, oral temperature 98.0 * WBC: 9.9, hemoglobin 11.8, hematocrit 36.2, platelets 228, neutrophils 74.5% * Sodium: 138, potassium 4.9, chloride 104, carbon dioxide 21.0, glucose 160, calcium 8.7, magnesium 2.1 * BUN: 34, creatinine 2.94, GFR 15 * Total bilirubin: 0.6, AST 106, ALT 52, alkaline phosphatase 96 * Total creatine kinase: 183 * CK-MB: 13.7 * Troponin: 6.28 * BNP: 1944 * Total protein: 6.2, albumin 3.0 * PT: 11.4, INR 1.1, APTT 23.1 * Blood cultures-negative * Chest x-ray showed some evidence of mild pulmonary edema but no signs of acute pneumonia. * EKG showed normal sinus rhythm with frequent PVCs every third beat; there was a right bundle branch block pattern. Examination was concerning for underlying CHF. Initially, the patient received some albuterol with no significant improvement. She was then placed on a BiPAP in the ED. Lidocaine drip was discontinued. Lab work returned with an elevated BNP as well as elevated troponin concerning for possible AL. Spoke with cardiology - recommendations to start the patient on nitroglycerin and Lasix. Cardiology and pulmonology were consulted. Possible cardiac catheterization in a.m. Patient admitted to [facility] with NSTEMI; complaining of acute chest pain. Troponin of 6.28, will check serial cardiac enzymes for trend. Orders for NTG/morphine. An echocardiogram showed normal left ventricular systolic function with an EF of 55%. Unfortunately, patient is not a candidate for invasive treatment due to the severity of her lung disease. Patient seen in [facility] on 85% FiO2 via BiPAP. Patient is alert and oriented to person, place and situation. She reports ongoing dyspnea, apparently desaturating into the high 70s with minimal exertion or any physical care. Patient denies pain. Discussed patient's respiratory status with patient and what her medical treatment goals would be should her condition deteriorate. The patient indicated she would consent to short-term intubation and mechanical ventilation, but she would not want prolonged ventilator support. She indicated she would NOT be agreeable to tracheostomy or PEG tube placement but would instead want to transition to comfort focused care at that time. The patient has had similar Dr. Reed and Dr. Anderson. Daughter (Sharon) states palliative care's conversation with the patient is consistent with conversation she has had with the patient previously. FULL CODE STATUS placed in computer. . Function/Cognitive Trajectory Patient has a history of severe lung disease and is oxygen dependent at home. Daughter states the patient's activity level is compromised secondary to dyspnea with minimal exertion. She reports her mother becomes SOB when walking short distance from the family room to the kitchen. Patient is able to dress herself but then needs to rest for nearly an hour. On the days the patient showers, "she'd done for the day " per family report. . Review of Systems ROS Limitations: Clinical Condition, Speech Impaired Constitutional: COMPLAINS OF: Fatigue, Generalized weakness, DENIES: Pain Respiratory: COMPLAINS OF: Shortness of breath Cardiovascular: COMPLAINS OF: Dyspnea on Exertion, DENIES: Chest pain, Lower Extremity Edema Gastrointestinal: DENIES: Constipation, Diarrhea, Nausea, Vomiting Hematologic/Lymphatics: COMPLAINS OF: Bruising Psychiatric: DENIES: Confusion Past Family Social History Coded Allergies: No Known Allergies (Unverified , 02/21/12) Past Medical History Hypertension Hyperlipidemia Coronary artery disease Status post AL Severe COPD - O2 dependent Obstructive sleep apnea Chronic kidney disease . Past Surgical History Cholecystectomy - 2010 Cardiac stent - 2011 Lens Implant Reported Medications Hydrocodone-Acetaminophen 5-325 mg Tab 1 Tab PO DAILYHS PRN [oxygen] Nitroglycerin SL (Nitroglycerin) 0.4 Mg Subl 0.4 Mg SL DIRECTED PRN ONE TABLET UNDER THE TONGUE NEEDED FOR CHEST PAIN, MAY REPEAT EVERY FIVE MINUTES FOR A TOTAL OF 3 DOSES OR CALL 911 IF NO RELIEF Multiple Vitamin 1 Tab 1 Tab PO DAILY Isosorbide Mononitrate ER (Isosorbide Mononitrate) 60 Mg Tab 60 Mg PO DAILY Proair Hfa 8.5 GM Inh (Albuterol Sulfate) 90 Mcg/Act Aer 2 Puff INH Q4H PRN 108 mcg/actuation Sertraline (Sertraline HCl) 50 Mg Tab 50 Mg PO DAILY Omeprazole 20 Mg Tab 20 Mg PO DAILY Benazepril (Benazepril HCl) 40 Mg Tab 40 Mg PO DAILY Ropinirole 0.5 Mg Tab 0.5 Mg PO HS Vitamin D3 (Cholecalciferol) 5,000 Unit Cap 5,000 Units PO DAILY Calcium Carbonate 1,500 Mg Tab 600 Mg PO DAILY 1,500 mg calcium carbonate (600 mg elemental calcium) Lipitor (Atorvastatin Calcium) 80 Mg Tab 80 Mg PO HS Aspirin 81 Mg Chew 81 Mg CHEW DAILY ,. Current Medications Medications (Trade) Dose Ordered Sig/Leo Route Start Time Stop Time Status Last Admin (NS Flush) 2 ml UNSCH PRN IV FLUSH 11/26/17 02:45 (NS Flush) 2 ml BID IV FLUSH 11/26/17 09:00 11/28/17 08:30 (Tylenol) 650 mg Q6H PRN PO 11/26/17 02:45 (Mccloud 5-325 Mg) 1 tab Q4H PRN PO 11/26/17 02:45 11/28/17 00:31 (Morphine Inj) 2 mg Q3H PRN IV PUSH 11/26/17 02:45 (Piper-Colace) 1 tab BID PO 11/26/17 09:00 11/27/17 21:14 (Senokot) 17.2 mg Q12H PRN PO 11/26/17 02:45 (Dulcolax Supp) 10 mg DAILY PRN RECTAL 11/26/17 02:45 (Lactulose Liq) 30 ml DAILY PRN PO 11/26/17 02:45 (Aspirin Chew) 81 mg DAILY CHEW 11/26/17 09:00 11/28/17 08:23 (Lipitor) 80 mg HS PO 11/26/17 21:00 Future Hold 11/27/17 21:13 (Nitroglycerin 2% Oint) 0.5 inch Q6HR TOPICAL 11/26/17 18:00 11/28/17 13:45 (Cardizem) 30 mg Q6HR PO 11/26/17 18:00 11/28/17 13:40 (Plavix) 75 mg DAILY PO 11/27/17 09:00 11/28/17 08:24 (Heparin Inj) 5,000 units Q12H SQ 11/27/17 15:00 11/28/17 04:49 (SoluMEDROL INJ) 60 mg Q8HR IV PUSH 11/28/17 14:00 11/28/17 12:00 Ceftriaxone Sodium 1000 mg/ Sodium Chloride 100 ml @ 200 mls/hr Q24H IV 11/28/17 14:00 (D50w (Vial) Inj) 50 ml UNSCH PRN IV PUSH 11/28/17 13:00 (Glucagon Inj) 1 mg UNSCH PRN OTHER 11/28/17 13:00 (NovoLIN R SUPPLEMENTAL SCALE) 1 Q4H SQ 11/28/17 13:00 (Pepcid Inj) 10 mg Q12H IV PUSH 11/28/17 13:00 (Pulmicort Respule Neb) 0.25 mg Q12HR NEB NEB 11/28/17 13:00 (Duoneb Neb) 1 ampule Q4HR NEB NEB 11/28/17 16:00 (Duoneb Neb) 1 ampule Q2HR NEB PRN NEB 11/28/17 13:15 . Family History Father at age 57 from a stroke. Mother at the age of 90 from natural causes. A 20-year-old brother in [place]. A 57-year-old sister as well as a 62-year-old sister from [place]. . Substance Use Tobacco: Remote smoking history; quit 25+ years ago. Smoked 2 PPD 20 years Alcohol: None known Prescription med abuse: None unknown Illicits: None known . Psychosocial History Patient is originally from [place]. She has 4 children (Sharon, Agnes, Simone and Jeremy). Simone and Jeremy lives in [place]. Sharon lives locally, and Agnes lives in [place]. Patient has been to her current (Frank) for 48 years. Frank was the patient's primary caregiver but he is currently receiving rehab and likely will be unable to care for her in the future. Family has been considering looking into assisted living facilities. . Spiritual/Cultural Factors Mosque bruce . Living Will: Copy in medical record Health Care Surrogate: Copy in medical record Date completed: Nov, 2017 . Health Care Surrogate(s): Patient's spouse (Frank) is designated as the primary healthcare surrogate decision maker. Daughter (Sharon) would be the first alternate healthcare surrogate decision-maker, and son (Simone) would be the second alternate decision -maker. . Documented care wishes: Living will completed 11/28/17 states the patient is agreeable to short term intubation and mechanical ventilation but would not want prolonged ventilatory support. Patient would NOT agree to tracheostomy or PEG tube placement but would instead want to transition to comfort focused care at that time. The patient was unable to sign the document secondary to weakness and dyspnea ( patient becomes hypoxic with any care); conversations was witness by 3 persons. Daughter states these documented wished are consistent with conversations she has had with her mother previously regarding medical treatment goals. Copies of document are available in the patient's paper chart and have been scanned into the EMR. . Today's verbally stated goals: AGGRESSIVE GOALS . Family/friends goals: Goals remain aggressive at this time. . Ethical and Legal Issues No known ethical or legal issues . Physical Exam Vital Signs Date Time Temp Pulse Resp B/P (MAP) Pulse Ox O2 Delivery O2 Flow Rate FiO2 11/28/17 11:18 90 75 11/28/17 11:17 100 11/28/17 11:00 98.3 90 18 110/62 (78) 89 11/28/17 09:02 Bi-Pap 85 11/28/17 09:00 81 18 104/62 (76) 95 11/28/17 08:53 91 85 11/28/17 08:00 80 20 110/60 (77) 11/28/17 07:46 Nasal Cannula 5.00 11/28/17 07:33 92 Nasal Cannula 5.00 11/28/17 07:00 97.7 77 18 107/63 (78) 95 11/28/17 07:00 Bi-Pap 90 11/28/17 07:00 90 11/28/17 03:24 92 Bi-Pap 90 11/28/17 03:19 93 Bi-Pap 80 11/28/17 03:00 94 90 11/28/17 03:00 97.9 83 20 107/74 (85) 94 11/28/17 03:00 83 11/28/17 02:30 87 Venturi Mask 6.00 11/28/17 02:00 88 Venturi Mask 6.00 11/28/17 01:00 87 Venturi Mask 5.00 11/28/17 00:00 87 Venturi Mask 5.00 11/27/17 23:00 92 Nasal Cannula 5.00 11/27/17 23:00 97.8 83 22 98/60 (73) 93 11/27/17 23:00 84 11/27/17 22:15 20 11/27/17 21:35 97 Venturi Mask 50 11/27/17 19:00 84 11/27/17 19:00 92 Nasal Cannula 5.00 11/27/17 19:00 97.9 84 22 148/82 (104) 92 11/27/17 15:00 98 Nasal Cannula 5.00 11/27/17 15:00 80 11/27/17 15:00 98.1 78 20 146/88 (107) 98 . Exam CONSTITUTIONAL/GENERAL: This is a pale, elderly female patient in moderate to severe respiratory distress TUBES/LINES/DRAINS: Pure wick catheter, BiPAP, PIV SKIN: No jaundice, rashes, or lesions. ecchymoses on upper extremities. No wounds seen anteriorly. Skin is thin, fragile; skin temperature appropriate. Not diaphoretic. HEAD: Atraumatic. Normocephalic. EYES: Pupils equal and round and reactive. Extraocular motions intact. No scleral icterus. No injection or drainage. Fundi not examined. ENT: Hearing grossly normal. Nose without bleeding or purulent drainage. NECK: Trachea midline. Supple, nontender. No palpable thyroid enlargement or nodularity. CARDIOVASCULAR: Tachycardic. Without murmurs, gallops, or rubs. No JVD. Peripheral pulses symmetric. RESPIRATORY/CHEST: BiPAP mask in place on 85% FiO2. Breath sounds diminished bilaterally. No wheezes, rales, or rhonchi. GASTROINTESTINAL: Abdomen soft, non-tender, nondistended. No hepato-splenomegaly , or palpable masses. No guarding. Bowel sounds present. GENITOURINARY: Without palpable bladder distension. Garg catheter in place. MUSCULOSKELETAL: Extremities without clubbing, cyanosis, or edema. No mottling or clubbing. LYMPHATICS: No palpable cervical or supraclavicular adenopathy. NEUROLOGICAL: Awake and alert. Follows commands. Cognitively sharp. Moves all extremities. PSYCHIATRIC: No obvious anxiety/depression. No apparent hallucinations or other psychotic thought process. . Diagnostic Tests Laboratory Laboratory Tests Test 11/25/17 23:28 11/25/17 23:45 11/26/17 00:19 11/26/17 07:20 White Blood Count 9.9 TH/MM3 (4.0-11.0) 9.3 TH/MM3 (4.0-11.0) Red Blood Count 3.91 MIL/MM3 (4.00-5.30) 3.71 MIL/MM3 (4.00-5.30) Hemoglobin 11.8 GM/DL (11.6-15.3) 11.2 GM/DL (11.6-15.3) Hematocrit 36.2 % (35.0-46.0) 33.9 % (35.0-46.0) Mean Corpuscular Volume 92.4 FL (80.0-100.0) 91.4 FL (80.0-100.0) Mean Corpuscular Hemoglobin 30.2 PG (27.0-34.0) 30.2 PG (27.0-34.0) Mean Corpuscular Hemoglobin Concent 32.7 % (32.0-36.0) 33.0 % (32.0-36.0) Red Cell Distribution Width 15.2 % (11.6-17.2) 14.9 % (11.6-17.2) Platelet Count 228 TH/MM3 (150-450) 181 TH/MM3 (150-450) Mean Platelet Volume 11.8 FL (7.0-11.0) 10.9 FL (7.0-11.0) Neutrophils (%) (Auto) 74.5 % (16.0-70.0) 68.1 % (16.0-70.0) Lymphocytes (%) (Auto) 18.3 % (9.0-44.0) 20.2 % (9.0-44.0) Monocytes (%) (Auto) 6.5 % (0.0-8.0) 11.4 % (0.0-8.0) Eosinophils (%) (Auto) 0.0 % (0.0-4.0) 0.0 % (0.0-4.0) Basophils (%) (Auto) 0.7 % (0.0-2.0) 0.3 % (0.0-2.0) Neutrophils # (Auto) 7.4 TH/MM3 (1.8-7.7) 6.3 TH/MM3 (1.8-7.7) Lymphocytes # (Auto) 1.8 TH/MM3 (1.0-4.8) 1.9 TH/MM3 (1.0-4.8) Monocytes # (Auto) 0.6 TH/MM3 (0-0.9) 1.1 TH/MM3 (0-0.9) Eosinophils # (Auto) 0.0 TH/MM3 (0-0.4) 0.0 TH/MM3 (0-0.4) Basophils # (Auto) 0.1 TH/MM3 (0-0.2) 0.0 TH/MM3 (0-0.2) CBC Comment DIFF FINAL DIFF FINAL Differential Comment Blood Gas Puncture Site RT BRACHIAL Blood Gas Patient Temperature 98.6 Blood Gas HCO3 21 mmol/L (22-26) Blood Gas Base Excess -4.5 mmol/L (-2-2) Blood Gas Oxygen Saturation 89 % (90-100) Arterial Blood pH 7.30 (7.380-7.420) Arterial Blood Partial Pressure CO2 43 mmHg (38-42) Arterial Blood Partial Pressure O2 68 mmHG (61-120) Arterial Blood Oxygen Content 14.7 Vol % (12.0-20.0) Arterial Blood Carboxyhemoglobin 0.9 % (0-4) Arterial Blood Methemoglobin 0.5 % (0-2) Blood Gas Hemoglobin 11.6 G/DL (12.0-16.0) Oxygen Delivery Device NASAL CANNULA Blood Gas Liter Flow 4 L/M Digoxin Level LESS THAN 0.1 NG/ML Blood Urea Nitrogen 37 MG/DL (7-18) Creatinine 3.13 MG/DL (0.50-1.00) Random Glucose 100 MG/DL (74-106) Total Protein 6.4 GM/DL (6.4-8.2) Albumin 2.9 GM/DL (3.4-5.0) Calcium Level 8.6 MG/DL (8.5-10.1) Alkaline Phosphatase 93 U/L (45-117) Aspartate Amino Transf (AST/SGOT) 118 U/L (15-37) Alanine Aminotransferase (ALT/SGPT) 63 U/L (10-53) Total Bilirubin 0.4 MG/DL (0.2-1.0) Sodium Level 140 MEQ/L (136-145) Potassium Level 4.9 MEQ/L (3.5-5.1) Chloride Level 106 MEQ/L (98-107) Carbon Dioxide Level 24.7 MEQ/L (21.0-32.0) Anion Gap 9 MEQ/L (5-15) Estimat Glomerular Filtration Rate 14 ML/MIN (>89) Troponin I 6.82 NG/ML (0.02-0.05) Test 11/26/17 08:20 11/26/17 11:03 11/27/17 03:01 11/28/17 03:30 Activated Partial Thromboplast Time 49.0 SEC (24.3-30.1) 55.6 SEC (24.3-30.1) White Blood Count 7.7 TH/MM3 (4.0-11.0) Red Blood Count 3.71 MIL/MM3 (4.00-5.30) Hemoglobin 11.2 GM/DL (11.6-15.3) Hematocrit 33.7 % (35.0-46.0) Mean Corpuscular Volume 90.8 FL (80.0-100.0) Mean Corpuscular Hemoglobin 30.3 PG (27.0-34.0) Mean Corpuscular Hemoglobin Concent 33.4 % (32.0-36.0) Red Cell Distribution Width 15.0 % (11.6-17.2) Platelet Count 175 TH/MM3 (150-450) Mean Platelet Volume 10.8 FL (7.0-11.0) Neutrophils (%) (Auto) 88.5 % (16.0-70.0) Lymphocytes (%) (Auto) 9.8 % (9.0-44.0) Monocytes (%) (Auto) 1.2 % (0.0-8.0) Eosinophils (%) (Auto) 0.1 % (0.0-4.0) Basophils (%) (Auto) 0.4 % (0.0-2.0) Neutrophils # (Auto) 6.9 TH/MM3 (1.8-7.7) Lymphocytes # (Auto) 0.8 TH/MM3 (1.0-4.8) Monocytes # (Auto) 0.1 TH/MM3 (0-0.9) Eosinophils # (Auto) 0.0 TH/MM3 (0-0.4) Basophils # (Auto) 0.0 TH/MM3 (0-0.2) CBC Comment DIFF FINAL Differential Comment Blood Urea Nitrogen 41 MG/DL (7-18) 43 MG/DL (7-18) Creatinine 2.92 MG/DL (0.50-1.00) 2.45 MG/DL (0.50-1.00) Random Glucose 83 MG/DL (74-106) 122 MG/DL (74-106) Total Protein 6.3 GM/DL (6.4-8.2) Albumin 2.9 GM/DL (3.4-5.0) Calcium Level 8.5 MG/DL (8.5-10.1) 8.5 MG/DL (8.5-10.1) Alkaline Phosphatase 91 U/L (45-117) Aspartate Amino Transf (AST/SGOT) 110 U/L (15-37) Alanine Aminotransferase (ALT/SGPT) 67 U/L (10-53) Total Bilirubin 0.5 MG/DL (0.2-1.0) Sodium Level 140 MEQ/L (136-145) 136 MEQ/L (136-145) Potassium Level 4.7 MEQ/L (3.5-5.1) 4.8 MEQ/L (3.5-5.1) Chloride Level 103 MEQ/L (98-107) 99 MEQ/L (98-107) Carbon Dioxide Level 27.9 MEQ/L (21.0-32.0) 26.9 MEQ/L (21.0-32.0) Anion Gap 9 MEQ/L (5-15) 10 MEQ/L (5-15) Estimat Glomerular Filtration Rate 15 ML/MIN (>89) 19 ML/MIN (>89) Test 11/28/17 11:51 11/28/17 13:27 Blood Gas Puncture Site RT RADIAL Blood Gas Patient Temperature 98.6 Blood Gas HCO3 28 mmol/L (22-26) Blood Gas Base Excess 2.4 mmol/L (-2-2) Blood Gas Oxygen Saturation 85 % (90-100) Arterial Blood pH 7.33 (7.380-7.420) Arterial Blood Partial Pressure CO2 54 mmHg (38-42) Arterial Blood Partial Pressure O2 57 mmHg (61-120) Arterial Blood Oxygen Content 14.0 Vol % (12.0-20.0) Arterial Blood Carboxyhemoglobin 0.7 % (0-4) Arterial Blood Methemoglobin 1.4 % (0-2) Blood Gas Hemoglobin 11.7 G/DL (12.0-16.0) Oxygen Delivery Device BIPAP Blood Gas Ventilator Setting IPAP10/EPAP5 Blood Gas Inspired Oxygen 75 % White Blood Count 9.6 TH/MM3 (4.0-11.0) Red Blood Count 3.89 MIL/MM3 (4.00-5.30) Hemoglobin 11.8 GM/DL (11.6-15.3) Hematocrit 35.4 % (35.0-46.0) Mean Corpuscular Volume 91.2 FL (80.0-100.0) Mean Corpuscular Hemoglobin 30.3 PG (27.0-34.0) Mean Corpuscular Hemoglobin Concent 33.3 % (32.0-36.0) Red Cell Distribution Width 14.8 % (11.6-17.2) Platelet Count 221 TH/MM3 (150-450) Mean Platelet Volume 11.0 FL (7.0-11.0) Neutrophils (%) (Auto) 93.1 % (16.0-70.0) Lymphocytes (%) (Auto) 4.0 % (9.0-44.0) Monocytes (%) (Auto) 2.8 % (0.0-8.0) Eosinophils (%) (Auto) 0.0 % (0.0-4.0) Basophils (%) (Auto) 0.1 % (0.0-2.0) Neutrophils # (Auto) 8.9 TH/MM3 (1.8-7.7) Lymphocytes # (Auto) 0.4 TH/MM3 (1.0-4.8) Monocytes # (Auto) 0.3 TH/MM3 (0-0.9) Eosinophils # (Auto) 0.0 TH/MM3 (0-0.4) Basophils # (Auto) 0.0 TH/MM3 (0-0.2) CBC Comment DIFF FINAL Differential Comment Blood Urea Nitrogen 45 MG/DL (7-18) Creatinine 2.39 MG/DL (0.50-1.00) Random Glucose 127 MG/DL (74-106) Total Protein 6.7 GM/DL (6.4-8.2) Albumin 3.2 GM/DL (3.4-5.0) Calcium Level 8.8 MG/DL (8.5-10.1) Alkaline Phosphatase 94 U/L (45-117) Aspartate Amino Transf (AST/SGOT) 83 U/L (15-37) Alanine Aminotransferase (ALT/SGPT) 78 U/L (10-53) Total Bilirubin 0.5 MG/DL (0.2-1.0) Sodium Level 136 MEQ/L (136-145) Potassium Level 4.8 MEQ/L (3.5-5.1) Chloride Level 99 MEQ/L (98-107) Carbon Dioxide Level 28.7 MEQ/L (21.0-32.0) Anion Gap 8 MEQ/L (5-15) Estimat Glomerular Filtration Rate 19 ML/MIN (>89) B-Type Natriuretic Peptide 960 PG/ML (0-100) . Result Diagram: 11/28/17 1327 11/28/17 1327 Microbiology Microbiology Date/Time Source Procedure Growth Status 11/25/17 23:28 Blood Peripheral Aerobic Blood Culture - Preliminary NO GROWTH IN 3 DAYS Resulted 11/25/17 23:28 Blood Peripheral Anaerobic Blood Culture - Preliminary NO GROWTH IN 3 DAYS Resulted 11/25/17 23:15 Blood Peripheral Aerobic Blood Culture - Preliminary NO GROWTH IN 3 DAYS Resulted 11/25/17 23:15 Blood Peripheral Anaerobic Blood Culture - Preliminary NO GROWTH IN 3 DAYS Resulted . Imaging Last 72 hours Impressions Chest X-Ray 11/28/17 0000 Signed Impressions: Service Date/Time: Tuesday, November 28, 2017 12:33 - CONCLUSION: 1. Bilateral effusions and interstitial prominence suggesting congestive failure. The effusions appear minimally larger than previous seen on 11/25/17. Deven Caceres MD Abdomen Ultrasound 11/28/17 0000 Signed Impressions: Service Date/Time: Tuesday, November 28, 2017 13:57 - CONCLUSION: Abdominal aortic aneurysm. Mild increased echotexture of the renal cortices can be seen with medical renal disease. Mildly prominent common bile duct in this patient who is status post cholecystectomy. There is also mild prominence of the intrahepatic biliary tree. Stefano Zepeda MD Chest X-Ray 11/25/17 2321 Signed Impressions: Service Date/Time: Saturday, November 25, 2017 23:39 - CONCLUSION: Stable appearance with no acute cardiopulmonary disease. Jonathan Coughlin MD . Patient/Family Conference Present at Family Conference: Met with patient at bedside; spoke to patient's daughter via telephone. . Family Conference Location: Bedside, Telephone Issues Discussed: * Palliative care role, purpose, approach * Additional medical, psychosocial, and spiritual history * Patients general health, functional status, and cognitive changes in the months leading up to the current hospitalization * Patient/family understanding of the current medical problems * Patient/family understanding of prognosis * Patients goals of care as best understood from advance directives and/or conversations and/or values * Current medical treatment options and benefits/burdens of those options * Likely scenarios comparing ongoing aggressive care with a transition to comfort measures only * Questions answered to the best of my ability * Palliative care contact information provided . Assessment and Plan Disease Oriented Problem List: (1) Hypertension (2) CHELSEA (obstructive sleep apnea) (3) COPD (chronic obstructive pulmonary disease) (4) CHF (congestive heart failure) (5) CKD (chronic kidney disease), stage IV (6) NSTEMI (non-ST elevated myocardial infarction) Symptom Scale: (1) Debility (2) Dyspnea (3) Pain Pertinent Non-Medical Issues Psychosocial: Patient is originally from [place]. She has 4 children (Sharon, Agnes , Simone and Jeremy). Simone and Jeremy lives in [place]. Sharon lives locally, and Agnes lives in [place]. Patient has been to her current (Frank) for 48 years. Frank was the patient's primary caregiver but he is currently receiving rehab and likely will be unable to care for her in the future. Family has been considering looking into assisted living facilities. Spiritual: [place] Legal: Patient currently has insight and judgment related to her medical conditions. In the event that she loses capacity for medical decision-making, the patient's spouse (Frank) is designated as the primary healthcare surrogate decision maker. Daughter (Sharon) would be the first alternate healthcare surrogate decision-maker, and son (Simone) would be the second alternate decision -maker. Ethical issues impacting care: No known ethical issues impacting care. . Important Contacts Frank Celis, : [phone] Sharon Queen/Jose J, daughter: [phone] or [phone] (home) Simone Chand, son: [phone] . Prognosis Patient is an 82 year old female with extensive cardiopulmonary disease s/p NSTEMI. Unfortunately, she is not a candidate for invasive cardiac treatment due to the severity of her lung disease. Patient is significantly disabled and is high risk for ongoing decline and setbacks. Patient would be hospice appropriate if/when goals become comfort oriented. . Code Status: Full Code Plan * FULL CODE * Decision-making: Patient currently has insight and judgment related to her medical conditions. In the event that she loses capacity for medical decision- making,the patient's spouse (Frank) is designated as the primary healthcare surrogate decision maker. Daughter (Sharon) would be the first alternate healthcare surrogate decision-maker, and son (Simone) would be the second alternate decision-maker. * AGGRESSIVE GOALS * Palliative care met with the patient who indicated she would consent to short- term intubation and mechanical ventilation, but she would not want prolonged ventilator support. She indicated she would NOT be agreeable to tracheostomy or PEG tube placement but would instead want to transition to comfort focused care at that time. The patient has had similar Dr. Reed and Dr. Anderson. Daughter (Sharon) states my conversation with the patient is consistent with conversation she has had with the patient previously. * Palliative care contact information provided to the patient and her family. * Discussed current medical treatment goals with RN (Lotus) and Dr. Victoria. * Symptom management: == Dyspnea: Patient has a history of severe lung disease and is oxygen dependent at home. Currently on 85% FiO2 via BiPAP; nursing reports patient desaturates with minimal activity or any physical care. == Debility: Daughter states the patient's activity level is compromised secondary to dyspnea with minimal exertion. She reports her mother becomes SOB when walking short distance from the family room to the kitchen. Patient is able to dress herself but then needs to rest for nearly an hour. On the days the patient showers, "she'd done for the day " per family report. == Pain: Patient c/o acute chest pain on admission; pain has now resolved. Receiving nitroglycerin 2% ointment every 6 hours topically. PRN acetaminophen, norco and IV morphine are ordered for breakthrough pain. 24 hour PRN Requirements = Mccloud 5-325mg PO x 1. Palliative care will monitor PRN requirements and make recommendations as needed. * Palliative care will continue to follow this patient throughout her hospitalization to establish stress, assist with symptom management and clarification of medical treatment goals. . Thank you for the opportunity to participate in the care of Ms. Celis. Debra Jorge November 28, 2017 14:33
[2017-11-28] MEDS: cefTRIAXone INJ 1,000 MG in SODIUM CHLORIDE 0.9% INJ 100 ML IV SCH (14:59)
[2017-11-28] MEDS: RESP: BUDESONIDE 0.25 MG/2 ML NEB NEB SCH ×2 (15:29→20:31)
[2017-11-28] MEDS: RESP: ALBUTEROL 2.5 MG/IPRATROPIUM 0.5 MG NEB (SCH) NEB ×2 (15:29→20:31)
--- NOTE | 2017-11-28 15:40 | RADRPT ---
EXAM DATE/TIME: 11/28/2017 13:57 [place] COMPARISON: No previous studies available for comparison. EXTERNAL COMPARISON : [facility], CT ABDOMEN & PELVIS W/O CONTRAST, April 25, 2017, March 10, 2015, INDICATIONS : Acute renal failure. Elevated liver function tests. MEDICAL HISTORY : Myocardial infarction. Hypercholesterolemia. Renal calculi. Coronary artery disease. Chest pain. Araseli nary artery spasms. HTN. Sleep apnea. COPD. GERD. SURGICAL HISTORY : Coronary artery stent. Cholecystectomy. Left cataract repair. Bilateral lens implants. ENCOUNTER: Initial ACUITY: 1 day PAIN SCORE: 4/10 LOCATION: Abdomen. MEASUREMENTS: LIVER: 14.4 cm length COMMON DUCT: 12 mm RIGHT KIDNEY: 7.1 x 3.3 x 3.6 cm LEFT KIDNEY: 8.3 x 4.6 x 4.3 cm SPLEEN: 8.9 cm length AORTA: 2.9cm maximal FINDINGS: LIVER: Normal echotexture without focal lesion or ductal dilatation. COMMON DUCT: No intraluminal mass or stone visualized. GALLBLADDER: Cholecystectomy. PANCREAS: The visualized portions are within normal limits. RIGHT KIDNEY: No hydronephrosis, stone or mass. LEFT KIDNEY: No hydronephrosis, stone or mass. SPLEEN: No focal lesion. AORTA: Abdominal aortic aneurysm is noted measuring 2.9 x 3.7 cm x 3.9 cm IVC: Within normal limits. CONCLUSION: Abdominal aortic aneurysm. Mild increased echotexture of the renal cortices can be seen with medical renal disease. Mildly prominent common bile duct in this patient who is status post cholecystectomy. There is also mild prominence of the intrahepatic biliary tree. Stefano Zepeda MD on November 28, 2017 at 15:35 Board Certified Radiologist. This report was verified electronically.
--- NOTE | 2017-11-28 17:44 | PD.CONS ---
[facility] Service Nephrology Consult Requested By Reason for Consult Acute on chronic kidney disease Primary Care Physician Rachel Lozoya MD History of Present Illness This is an 82 year old lady with history of COPD and CKD. In February of 2012, her creatinine was around 2, placing her in stage IV CKD. She developed nausea and vomiting several days ago and then developed progressive shortness of breath. She was brought to the ER in an ambulance. Her creatinine was 3.30 on admission on 26 of November, today it has improved to 2.39. She has been given several doses of Lasix, and now is on scheduled doses of Lasix. Patient's Troponin was more than 9 and she has ruled in for NSTEMI. She is currently on BiPAP. Echo revealed EF of 55%. She is non oliguric, has a Garg catheter. Has been seen by cardiology, no intervention is planned on account of severity of her lung condition. She is being followed by palliative care, signwriter and customer support specialist. Review of Systems Constitutional: COMPLAINS OF: Fatigue Eyes: DENIES: Blurred vision Ears, nose, mouth, throat: DENIES: Nasal discharge Respiratory: COMPLAINS OF: Wheezing, Shortness of breath Cardiovascular: DENIES: Chest pain, Palpitations Gastrointestinal: DENIES: Abdominal pain Immunologic/allergic: DENIES: Eczema Psychiatric: DENIES: Anxiety Past Family Social History Allergies: Coded Allergies: No Known Allergies (Unverified , 02/21/12) Past Medical History Hypertension Hyperlipidemia Coronary artery disease Status post [place] Severe COPD - O2 dependent Obstructive sleep apnea Chronic kidney disease . Past Surgical History Cholecystectomy - 2010 Cardiac stent - 2011 Lens Implant Reported Medications Hydrocodone-Acetaminophen 5-325 mg Tab 1 Tab PO DAILYHS PRN [oxygen] Nitroglycerin SL (Nitroglycerin) 0.4 Mg Subl 0.4 Mg SL DIRECTED PRN ONE TABLET UNDER THE TONGUE NEEDED FOR CHEST PAIN, MAY REPEAT EVERY FIVE MINUTES FOR A TOTAL OF 3 DOSES OR CALL 911 IF NO RELIEF Multiple Vitamin 1 Tab 1 Tab PO DAILY Isosorbide Mononitrate ER (Isosorbide Mononitrate) 60 Mg Tab 60 Mg PO DAILY Proair Hfa 8.5 GM Inh (Albuterol Sulfate) 90 Mcg/Act Aer 2 Puff INH Q4H PRN 108 mcg/actuation Sertraline (Sertraline HCl) 50 Mg Tab 50 Mg PO DAILY Omeprazole 20 Mg Tab 20 Mg PO DAILY Benazepril (Benazepril HCl) 40 Mg Tab 40 Mg PO DAILY Ropinirole 0.5 Mg Tab 0.5 Mg PO HS Vitamin D3 (Cholecalciferol) 5,000 Unit Cap 5,000 Units PO DAILY Calcium Carbonate 1,500 Mg Tab 600 Mg PO DAILY 1,500 mg calcium carbonate (600 mg elemental calcium) Lipitor (Atorvastatin Calcium) 80 Mg Tab 80 Mg PO HS Aspirin 81 Mg Chew 81 Mg CHEW DAILY Active Ordered Medications Current Medications Medications (Trade) Dose Ordered Sig/Leo Route Start Time Stop Time Status Last Admin (NS Flush) 2 ml UNSCH PRN IV FLUSH 11/26/17 02:45 (NS Flush) 2 ml BID IV FLUSH 11/26/17 09:00 11/28/17 08:30 (Tylenol) 650 mg Q6H PRN PO 11/26/17 02:45 (Cowgill 5-325 Mg) 1 tab Q4H PRN PO 11/26/17 02:45 11/28/17 00:31 (Morphine Inj) 2 mg Q3H PRN IV PUSH 11/26/17 02:45 (Piper-Colace) 1 tab BID PO 11/26/17 09:00 11/27/17 21:14 (Senokot) 17.2 mg Q12H PRN PO 11/26/17 02:45 (Dulcolax Supp) 10 mg DAILY PRN RECTAL 11/26/17 02:45 (Lactulose Liq) 30 ml DAILY PRN PO 11/26/17 02:45 (Aspirin Chew) 81 mg DAILY CHEW 11/26/17 09:00 11/28/17 08:23 (Lipitor) 80 mg HS PO 11/26/17 21:00 Future Hold 11/27/17 21:13 (Nitroglycerin 2% Oint) 0.5 inch Q6HR TOPICAL 11/26/17 18:00 11/28/17 13:45 (Cardizem) 30 mg Q6HR PO 11/26/17 18:00 11/28/17 13:40 (Plavix) 75 mg DAILY PO 11/27/17 09:00 11/28/17 08:24 (Heparin Inj) 5,000 units Q12H SQ 11/27/17 15:00 11/28/17 15:47 (SoluMEDROL INJ) 60 mg Q8HR IV PUSH 11/28/17 14:00 11/28/17 12:00 Ceftriaxone Sodium 1000 mg/ Sodium Chloride 100 ml @ 200 mls/hr Q24H IV 11/28/17 14:00 11/28/17 14:59 (D50w (Vial) Inj) 50 ml UNSCH PRN IV PUSH 11/28/17 13:00 (Glucagon Inj) 1 mg UNSCH PRN OTHER 11/28/17 13:00 (NovoLIN R SUPPLEMENTAL SCALE) 1 Q4H SQ 11/28/17 13:00 (Pepcid Inj) 10 mg Q12H IV PUSH 11/28/17 13:00 11/28/17 13:00 (Pulmicort Respule Neb) 0.25 mg Q12HR NEB NEB 11/28/17 13:00 11/28/17 15:29 (Duoneb Neb) 1 ampule Q4HR NEB NEB 11/28/17 16:00 11/28/17 15:29 (Duoneb Neb) 1 ampule Q2HR NEB PRN NEB 11/28/17 13:15 Family History reviewed, and non contributory Social History Former smoker. Physical Exam Vital Signs Vital Signs Date Time Temp Pulse Resp B/P (MAP) Pulse Ox O2 Delivery O2 Flow Rate FiO2 11/28/17 15:30 95 80 11/28/17 15:20 110 11/28/17 15:00 97 Bi-Pap 90 11/28/17 15:00 98.5 88 20 118/67 (84) 97 11/28/17 11:18 90 75 11/28/17 11:17 100 11/28/17 11:00 98.3 90 18 110/62 (78) 89 11/28/17 09:02 Bi-Pap 85 11/28/17 09:00 81 18 104/62 (76) 95 11/28/17 08:53 91 85 11/28/17 08:00 80 20 110/60 (77) 11/28/17 07:46 Nasal Cannula 5.00 11/28/17 07:33 92 Nasal Cannula 5.00 11/28/17 07:00 97.7 77 18 107/63 (78) 95 11/28/17 07:00 Bi-Pap 90 11/28/17 07:00 90 11/28/17 03:24 92 Bi-Pap 90 11/28/17 03:19 93 Bi-Pap 80 11/28/17 03:00 94 90 11/28/17 03:00 97.9 83 20 107/74 (85) 94 11/28/17 03:00 83 11/28/17 02:30 87 Venturi Mask 6.00 11/28/17 02:00 88 Venturi Mask 6.00 11/28/17 01:00 87 Venturi Mask 5.00 11/28/17 00:00 87 Venturi Mask 5.00 11/27/17 23:00 92 Nasal Cannula 5.00 11/27/17 23:00 97.8 83 22 98/60 (73) 93 11/27/17 23:00 84 11/27/17 22:15 20 11/27/17 21:35 97 Venturi Mask 50 11/27/17 19:00 84 11/27/17 19:00 92 Nasal Cannula 5.00 11/27/17 19:00 97.9 84 22 148/82 (104) 92 Physical Exam GENERAL: chronically ill appearing, frail, on BiPAP. Tachypneic. SKIN: Warm and dry. HEAD: Normocephalic. EYES: No scleral icterus. No injection or drainage. NECK: Supple, trachea midline. No JVD or lymphadenopathy. CARDIOVASCULAR: irregular, due to frequent PACs RESPIRATORY: Breath sounds equal bilaterally. Accessory muscles in use. Decreased breath sounds. GASTROINTESTINAL: Abdomen soft, non-tender, nondistended. MUSCULOSKELETAL: No cyanosis, or edema. BACK: Nontender without obvious deformity. No CVA tenderness. Laboratory Laboratory Tests Test 11/28/17 03:30 11/28/17 11:51 11/28/17 13:27 11/28/17 16:35 Blood Urea Nitrogen 43 45 Creatinine 2.45 2.39 Random Glucose 122 127 Calcium Level 8.5 8.8 Sodium Level 136 136 Potassium Level 4.8 4.8 Chloride Level 99 99 Carbon Dioxide Level 26.9 28.7 Anion Gap 10 8 Estimat Glomerular Filtration Rate 19 19 Blood Gas Puncture Site RT RADIAL RT RADIAL Blood Gas Patient Temperature 98.6 98.6 Blood Gas HCO3 28 28 Blood Gas Base Excess 2.4 2.3 Blood Gas Oxygen Saturation 85 91 Arterial Blood pH 7.33 7.34 Arterial Blood Partial Pressure CO2 54 53 Arterial Blood Partial Pressure O2 57 72 Arterial Blood Oxygen Content 14.0 15.0 Arterial Blood Carboxyhemoglobin 0.7 0.7 Arterial Blood Methemoglobin 1.4 1.3 Blood Gas Hemoglobin 11.7 11.6 Oxygen Delivery Device BIPAP BIPAP Blood Gas Ventilator Setting IPAP10/EPAP5 IPAP15/EPAP5 Blood Gas Inspired Oxygen 75 70 White Blood Count 9.6 Red Blood Count 3.89 Hemoglobin 11.8 Hematocrit 35.4 Mean Corpuscular Volume 91.2 Mean Corpuscular Hemoglobin 30.3 Mean Corpuscular Hemoglobin Concent 33.3 Red Cell Distribution Width 14.8 Platelet Count 221 Mean Platelet Volume 11.0 Neutrophils (%) (Auto) 93.1 Lymphocytes (%) (Auto) 4.0 Monocytes (%) (Auto) 2.8 Eosinophils (%) (Auto) 0.0 Basophils (%) (Auto) 0.1 Neutrophils # (Auto) 8.9 Lymphocytes # (Auto) 0.4 Monocytes # (Auto) 0.3 Eosinophils # (Auto) 0.0 Basophils # (Auto) 0.0 CBC Comment DIFF FINAL Differential Comment Total Protein 6.7 Albumin 3.2 Alkaline Phosphatase 94 Aspartate Amino Transf (AST/SGOT) 83 Alanine Aminotransferase (ALT/SGPT) 78 Total Bilirubin 0.5 B-Type Natriuretic Peptide 960 Hepatitis A IgM Antibody NONREACTIVE Hepatitis B Surface Antigen NONREACTIVE Hepatitis B Core IgM Antibody NONREACTIVE Hepatitis C IgG Antibody NONREACTIVE Date/Time Source Procedure Growth Status 11/25/17 23:28 Blood Peripheral Aerobic Blood Culture - Preliminary NO GROWTH IN 3 DAYS Resulted 11/25/17 23:28 Blood Peripheral Anaerobic Blood Culture - Preliminary NO GROWTH IN 3 DAYS Resulted Result Diagram: 11/28/17 1327 11/28/17 1327 Assessment and Plan Problem List: (1) Acute worsening of stage 4 chronic kidney disease ICD Codes: N28.9 - Disorder of kidney and ureter, unspecified; N18.4 - Chronic kidney disease, stage 4 (severe) Plan: may have underlying stage IV CKD due to nephrosclerosis. She has small sized kidneys, right kidney measuring only 7.1 cms. Acute worsening could be due to renal hypoperfusion, or increased renal vein pressure. Continue Lasix carefully. Avoid nephrotoxic agents. Monitor urine output and renal function. (2) NSTEMI (non-ST elevated myocardial infarction) ICD Codes: I21.4 - Non-ST elevation (NSTEMI) myocardial infarction Status: Acute Plan: Cardiology on the case. Medical management. (3) COPD (chronic obstructive pulmonary disease) ICD Codes: J44.9 - Chronic obstructive pulmonary disease, unspecified Status: Acute Plan: On oxygen at home. May have COPD exacerbation. Permanent Comment: End-stage Last Edited By: Agus Hart MD on November 27, 2017 11:55 (4) CHF (congestive heart failure) ICD Codes: I50.9 - Heart failure, unspecified Status: Chronic Plan: s/p NSTEMI Cardiology following. Appears to have pulmonary hypertension. Assessment and Plan Thanks for the consult. Problem Qualifiers (1) COPD (chronic obstructive pulmonary disease): Qualified Codes: J44.1 - Chronic obstructive pulmonary disease with (acute) exacerbation (2) CHF (congestive heart failure): Qualified Codes: I50.32 - Chronic diastolic (congestive) heart failure Julian Cevallos MD November 28, 2017 17:44
[2017-11-28 18:02] LABS: BILIRUBIN, URINE NEG (NEG); BLOOD, URINE NEG (NEG); GLUCOSE,URINE NEG (NEG); HYALINE CAST, URINE 3 /lpf (RARE); KETONE, URINE NEG (NEG); NITRITE,URINE NEG (NEG); URINE COLOR LIGHT-YELLOW (YELLW/STRAW); URINE LEUKOCYTE ESTERASE NEG (NEG)
--- NOTE | 2017-11-28 18:50 | HHI.PR ---
Subjective Remarks 82 YO WF, Frail, Severe COPD with hypoxia, Ch RF Has NSTMI On BIPAP< Fi02 70% desaturates easily and takes her a while to recover No CP Very weak Objective Vital Signs Vital Signs Date Time Temp Pulse Resp B/P (MAP) Pulse Ox O2 Delivery O2 Flow Rate FiO2 11/28/17 15:30 95 80 11/28/17 15:20 110 11/28/17 15:00 97 Bi-Pap 90 11/28/17 15:00 98.5 88 20 118/67 (84) 97 11/28/17 11:18 90 75 11/28/17 11:17 100 11/28/17 11:00 98.3 90 18 110/62 (78) 89 11/28/17 09:02 Bi-Pap 85 11/28/17 09:00 81 18 104/62 (76) 95 11/28/17 08:53 91 85 11/28/17 08:00 80 20 110/60 (77) 11/28/17 07:46 Nasal Cannula 5.00 11/28/17 07:33 92 Nasal Cannula 5.00 11/28/17 07:00 97.7 77 18 107/63 (78) 95 11/28/17 07:00 Bi-Pap 90 11/28/17 07:00 90 11/28/17 03:24 92 Bi-Pap 90 11/28/17 03:19 93 Bi-Pap 80 11/28/17 03:00 94 90 11/28/17 03:00 97.9 83 20 107/74 (85) 94 11/28/17 03:00 83 11/28/17 02:30 87 Venturi Mask 6.00 11/28/17 02:00 88 Venturi Mask 6.00 11/28/17 01:00 87 Venturi Mask 5.00 11/28/17 00:00 87 Venturi Mask 5.00 11/27/17 23:00 92 Nasal Cannula 5.00 11/27/17 23:00 97.8 83 22 98/60 (73) 93 11/27/17 23:00 84 11/27/17 22:15 20 11/27/17 21:35 97 Venturi Mask 50 11/27/17 19:00 84 11/27/17 19:00 92 Nasal Cannula 5.00 11/27/17 19:00 97.9 84 22 148/82 (870) 92 I/O 11/27/17 11/27/17 11/27/17 11/28/17 11/28/17 11/28/17 07:00 15:00 23:00 07:00 15:00 23:00 Intake Total 400 ml 620 ml 200 ml 200 ml Output Total 500 ml 450 ml 400 ml 750 ml Balance -100 ml 170 ml -200 ml -550 ml Intake Oral 400 ml 620 ml 200 ml 100 ml IV Total 100 ml Output Urine Total 500 ml 450 ml 400 ml 750 ml # Bowel Movements 0 1 0 Result Diagram: 11/28/17 1327 11/28/171326 Objective Remarks GENERAL: Frail elderly WF, mild sob, weak SKIN: Warm and dry. HEAD: Normocephalic. EYES: No scleral icterus. No injection or drainage. NECK: Supple, trachea midline. No JVD or lymphadenopathy. CARDIOVASCULAR: Regular rate and rhythm without murmurs, gallops, or rubs. RESPIRATORY: Breath sounds equal bilaterally. No accessory muscle use. GASTROINTESTINAL: Abdomen soft, non-tender, nondistended. MUSCULOSKELETAL: No cyanosis, or edema. BACK: Nontender without obvious deformity. No CVA tenderness. A/P Assessment and Plan Severe COPD Hypoxia Ch Resp failure NSTMI CHF PLAN: Supplement 02, Cont BIPAP If desaturaates, will need intubation. Will be difficult to wean if intubated Aerosol nebs IV Solumedrol Plavix 75 mg daily Dw Pt Carlos Chan MD November 28, 2017 18:50
[2017-11-29] VITALS (11 sets, daily range): BP systolic 105–142; BP diastolic 51–76; PULSE 83–100; RESP 17–24; TEMP 97.9–98.4; O2SAT 89–98
[2017-11-29] MEDS: RESP: ALBUTEROL 2.5 MG/IPRATROPIUM 0.5 MG NEB (SCH) NEB ×7 (00:23→23:44)
[2017-11-29] MEDS: FAMOTIDINE 20 MG/2 ML VIAL IV PUSH SCH (00:28)
[2017-11-29] MEDS: DILTIAZEM HCL 30 MG TAB PO SCH ×4 (00:28→17:52)
[2017-11-29] MEDS: NITROGLYCERIN 2% OINT 1 GM PACKET TOPICAL SCH ×4 (00:28→17:53)
[2017-11-29] MEDS: INSULIN NovoLIN REGULAR SUPPLEMENTAL SCALE SQ SCH ×6 (00:29→21:00)
[2017-11-29] MEDS: HEPARIN SODIUM - SQ 10,000 UNITS/ML VIAL SQ SCH ×2 (04:16→16:38)
[2017-11-29 04:54] LABS: AUTOMATED NEUTROPHIL # 9.4 TH/MM3 (1.8-7.7); BASOPHIL % 0.2 % (0.0-2.0); HEMATOCRIT 36.1 % (35.0-46.0); HEMOGLOBIN 11.9 GM/DL (11.6-15.3); LYMPH % 2.9 % (9.0-44.0); LYMPHOCYTE # 0.3 TH/MM3 (1.0-4.8); MEAN CELL VOLUME 92.1 FL (80.0-100.0); MEAN CORPUSCULAR HEMOGLOBIN 30.3 PG (27.0-34.0); MEAN CORPUSCULAR HGB CONC 32.9 % (32.0-36.0); MEAN PLATELET VOLUME 10.7 FL (7.0-11.0); MONO % 3.1 % (0.0-8.0); MONOCYTE # 0.3 TH/MM3 (0-0.9); NEUT % 93.8 % (16.0-70.0); PLATELET COUNT 200 TH/MM3 (150-450); RED BLOOD COUNT 3.92 MIL/MM3 (4.00-5.30); RED CELL DISTRIBUTION WIDTH 14.5 % (11.6-17.2)
[2017-11-29 05:22] LABS: ALBUMIN 3.2 GM/DL (3.4-5.0); AST (GOT) 68 U/L (15-37); BICARBONATE 29.2 MEQ/L (21.0-32.0); BLOOD UREA NITROGEN 50 MG/DL (7-18); CALCIUM 9.2 MG/DL (8.5-10.1); CHLORIDE 99 MEQ/L (98-107); CREATININE 2.51 MG/DL (0.50-1.00); GLOMERULAR FILTRATION RATE 18 ML/MIN (>89); GLUCOSE,RANDOM 132 MG/DL (74-106); MAGNESIUM 2.1 MG/DL (1.5-2.5); SODIUM (NA) 139 MEQ/L (136-145)
[2017-11-29 05:23] LABS: ALT (GPT) 73 U/L (10-53)
[2017-11-29 05:25] LABS: ALKALINE PHOSPHATASE 80 U/L (45-117); TOTAL BILIRUBIN ADULT 0.5 MG/DL (0.2-1.0); TOTAL PROTEIN 6.5 GM/DL (6.4-8.2)
[2017-11-29] MEDS: methylPREDNISolone SOD SUCC 40 MG/1 ML VIAL IV PUSH SCH (05:53)
[2017-11-29] MEDS: RESP: BUDESONIDE 0.25 MG/2 ML NEB NEB SCH ×2 (07:46→20:15)
[2017-11-29] MEDS: DOCUSATE SODIUM 50 MG/SENNA 8.6 MG TAB PO SCH ×2 (09:00→21:14)
[2017-11-29] MEDS: ASPIRIN 81 MG CHEW TAB CHEW SCH (09:17)
[2017-11-29] MEDS: CLOPIDOGREL 75 MG TAB PO SCH (09:17)
[2017-11-29] MEDS: SODIUM CHLORIDE 0.9% FLUSH 10 ML FLUSH IV FLUSH SCH ×2 (09:19→21:14)
--- NOTE | 2017-11-29 10:27 | HHI.CCPN ---
Subjective Remarks/Hospital Course The patient is an 82-year-old female with past medical history of coronary artery disease, COPD on 4 liters oxygen at home continuously, hypertension and hyperlipidemia, who was admitted to [facility] on 11/26/2017 under hospitalist service for non-ST elevation CT and COPD exacerbation. She had elevated troponin of 6.28 on arrival. In addition, the patient has renal dysfunction with a creatinine of 2.94 on 11/25/2017, which improved slightly to 2.45 today. During her hospital course, she was seen by Dr. Hart from Cardiology service and Dr. Chan from pulmonary. A chest x-ray on arrival showed no evidence of any acute cardiopulmonary disease. She was treated with bronchodilators, steroids for her COPD. The patient had an echocardiogram on 11/26/2017, which showed an EF of 55%, moderate tricuspid regurgitation and mild pulmonary hypertension with a PA pressure of 53 mmHg. She was placed on BiPAP earlier today and ABG was performed on BiPAP 04/20 with 75% FIO2, which showed a pH of 7.33, CO2 54, PaO2 57, bicarbonate 28 and saturation of 85%. Critical care medicine was consulted for critical care management. The patient desaturates easily with movements, per nursing staff. When seen, she remained on the BiPAP with a saturation of 90%. Blood pressure 110/62 with a pulse of 100. 11/29 Patient is off BIPAP awake and alert on 6L oxygen. Objective Vital Signs Date Time Temp Pulse Resp B/P (MAP) Pulse Ox O2 Delivery O2 Flow Rate FiO2 11/29/17 08:02 92 Nasal Cannula 6.00 11/29/17 07:46 100 11/29/17 07:46 97.9 18 107/51 (69) 11/28/17 15:30 80 Intake and Output 11/29/17 11/29/17 11/30/17 08:00 16:00 00:00 Intake Total 240 ml Output Total 550 ml Balance -310 ml Result Diagram: 11/29/17 0420 11/29/17 042 Other Results Laboratory Tests Test 11/28/17 11:51 11/28/17 13:27 11/28/17 14:53 11/28/17 16:35 Blood Gas Puncture Site RT RADIAL RT RADIAL Blood Gas Patient Temperature 98.6 98.6 Blood Gas HCO3 28 mmol/L 28 mmol/L Blood Gas Base Excess 2.4 mmol/L 2.3 mmol/L Blood Gas Oxygen Saturation 85 % 91 % Arterial Blood pH 7.33 7.34 Arterial Blood Partial Pressure CO2 54 mmHg 53 mmHg Arterial Blood Partial Pressure O2 57 mmHg 72 mmHg Arterial Blood Oxygen Content 14.0 Vol % 15.0 Vol % Arterial Blood Carboxyhemoglobin 0.7 % 0.7 % Arterial Blood Methemoglobin 1.4 % 1.3 % Blood Gas Hemoglobin 11.7 G/DL 11.6 G/DL Oxygen Delivery Device BIPAP BIPAP Blood Gas Ventilator Setting IPAP10/EPAP5 IPAP15/EPAP5 Blood Gas Inspired Oxygen 75 % 70 % White Blood Count 9.6 TH/MM3 Red Blood Count 3.89 MIL/MM3 Hemoglobin 11.8 GM/DL Hematocrit 35.4 % Mean Corpuscular Volume 91.2 FL Mean Corpuscular Hemoglobin 30.3 PG Mean Corpuscular Hemoglobin Concent 33.3 % Red Cell Distribution Width 14.8 % Platelet Count 221 TH/MM3 Mean Platelet Volume 11.0 FL Neutrophils (%) (Auto) 93.1 % Lymphocytes (%) (Auto) 4.0 % Monocytes (%) (Auto) 2.8 % Eosinophils (%) (Auto) 0.0 % Basophils (%) (Auto) 0.1 % Neutrophils # (Auto) 8.9 TH/MM3 Lymphocytes # (Auto) 0.4 TH/MM3 Monocytes # (Auto) 0.3 TH/MM3 Eosinophils # (Auto) 0.0 TH/MM3 Basophils # (Auto) 0.0 TH/MM3 CBC Comment DIFF FINAL Differential Comment Blood Urea Nitrogen 45 MG/DL Creatinine 2.39 MG/DL Random Glucose 127 MG/DL Total Protein 6.7 GM/DL Albumin 3.2 GM/DL Calcium Level 8.8 MG/DL Alkaline Phosphatase 94 U/L Aspartate Amino Transf (AST/SGOT) 83 U/L Alanine Aminotransferase (ALT/SGPT) 78 U/L Total Bilirubin 0.5 MG/DL Sodium Level 136 MEQ/L Potassium Level 4.8 MEQ/L Chloride Level 99 MEQ/L Carbon Dioxide Level 28.7 MEQ/L Anion Gap 8 MEQ/L Estimat Glomerular Filtration Rate 19 ML/MIN B-Type Natriuretic Peptide 960 PG/ML Hepatitis A IgM Antibody NONREACTIVE Hepatitis B Surface Antigen NONREACTIVE Hepatitis B Core IgM Antibody NONREACTIVE Hepatitis C IgG Antibody NONREACTIVE Urine Color LIGHT-YELLOW Urine Turbidity CLEAR Urine pH 5.0 Urine Specific [place] 1.009 Urine Protein TRACE mg/dL Urine Glucose (UA) NEG mg/dL Urine Ketones NEG mg/dL Urine Occult Blood NEG Urine Nitrite NEG Urine Bilirubin NEG Urine Urobilinogen LESS THAN 2.0 MG/DL Urine Leukocyte Esterase NEG Urine WBC LESS THAN 1 /hpf Urine Hyaline Casts 3 /lpf Microscopic Urinalysis Comment CATH-CULT NOT IND Test 11/28/17 22:44 11/29/17 04:20 Blood Gas Puncture Site RT RADIAL Blood Gas Patient Temperature 98.6 Blood Gas HCO3 28 mmol/L Blood Gas Base Excess 3.0 mmol/L Blood Gas Oxygen Saturation 94 % Arterial Blood pH 7.36 Arterial Blood Partial Pressure CO2 50 mmHg Arterial Blood Partial Pressure O2 83 mmHg Arterial Blood Oxygen Content 15.1 Vol % Arterial Blood Carboxyhemoglobin 0.8 % Arterial Blood Methemoglobin 1.4 % Blood Gas Hemoglobin 11.4 G/DL Oxygen Delivery Device SIMPLE MASK Blood Gas Liter Flow 10 L/M White Blood Count 10.0 TH/MM3 Red Blood Count 3.92 MIL/MM3 Hemoglobin 11.9 GM/DL Hematocrit 36.1 % Mean Corpuscular Volume 92.1 FL Mean Corpuscular Hemoglobin 30.3 PG Mean Corpuscular Hemoglobin Concent 32.9 % Red Cell Distribution Width 14.5 % Platelet Count 200 TH/MM3 Mean Platelet Volume 10.7 FL Neutrophils (%) (Auto) 93.8 % Lymphocytes (%) (Auto) 2.9 % Monocytes (%) (Auto) 3.1 % Eosinophils (%) (Auto) 0.0 % Basophils (%) (Auto) 0.2 % Neutrophils # (Auto) 9.4 TH/MM3 Lymphocytes # (Auto) 0.3 TH/MM3 Monocytes # (Auto) 0.3 TH/MM3 Eosinophils # (Auto) 0.0 TH/MM3 Basophils # (Auto) 0.0 TH/MM3 CBC Comment DIFF FINAL Differential Comment Blood Urea Nitrogen 50 MG/DL Creatinine 2.51 MG/DL Random Glucose 132 MG/DL Total Protein 6.5 GM/DL Albumin 3.2 GM/DL Calcium Level 9.2 MG/DL Magnesium Level 2.1 MG/DL Alkaline Phosphatase 80 U/L Aspartate Amino Transf (AST/SGOT) 68 U/L Alanine Aminotransferase (ALT/SGPT) 73 U/L Total Bilirubin 0.5 MG/DL Sodium Level 139 MEQ/L Potassium Level 4.4 MEQ/L Chloride Level 99 MEQ/L Carbon Dioxide Level 29.2 MEQ/L Anion Gap 11 MEQ/L Estimat Glomerular Filtration Rate 18 ML/MIN Imaging Last Impressions Chest X-Ray 11/28/17 0000 Signed Impressions: Service Date/Time: Tuesday, November 28, 2017 12:33 - CONCLUSION: 1. Bilateral effusions and interstitial prominence suggesting congestive failure. The effusions appear minimally larger than previous seen on 11/25/17. Deven Caceres MD Abdomen Ultrasound 11/28/17 0000 Signed Impressions: Service Date/Time: Tuesday, November 28, 2017 13:57 - CONCLUSION: Abdominal aortic aneurysm. Mild increased echotexture of the renal cortices can be seen with medical renal disease. Mildly prominent common bile duct in this patient who is status post cholecystectomy. There is also mild prominence of the intrahepatic biliary tree. Stefano Zepeda MD Objective Remarks GENERAL: Patient is 82 yo lyin gin bed in [facility]. Looks comfortable. SKIN: Warm and dry. HEAD: Normocephalic. EYES: No scleral icterus. No injection or drainage. NECK: Supple, trachea midline. No JVD or lymphadenopathy. CARDIOVASCULAR: Regular rate and rhythm without murmurs, gallops, or rubs. RESPIRATORY: Breath sounds equal bilaterally. Diminished GASTROINTESTINAL: Abdomen soft, non-tender, nondistended. MUSCULOSKELETAL: No cyanosis, or edema. Neuro: Awake and alert A/P Assessment and Plan 1. Acute hypoxemic and hypercapnic respiratory failure. 2. COPD exac on 4 liters home oxygen. 3. Acute on chronic kidney disease. 4. Non-ST elevation myocardial infarction. 5. Elevated liver enzymes. 6. Hypertension. 7. Coronary artery disease. 8. Hyperlipidemia. Plan Neuro: Awake and alert. Monitor neuro status and avoid any sedatives. Pulm: Continue with oxygen and maintain sats >92%. Bronchodilators ( DuoNeb, Symbicort) Solu-Medrol to 60 mg IV q. 8 hours. NIPPV PRN for resp distress. Pulm is following- Dr. Chan CV: Monitor HR and BP and maintain MAP> 65 mmHg. Continue with Cardizem 30 mg q. 6 hours, Plavix 75 mg daily, nitroglycerin 0.5 topical q. 6 hours. Cards is following. Echo from 11/26/2017, showed an EF of 55%, moderate pulmonary hypertension with a PA pressure 53 mmHg and moderate TR. Lipitor held for elevated LFT : Monitor renal function, I's and O's and avoid nephrotoxins Diurese as needed. s/p Lasix 80mg total yesterday Cr: 2.51 from 2.39, UOP:550ml overnight. Renal is following- Dr. Cevallos US abdomen: Abdominal aortic aneurysm 2.9x 3.7x3.9 cm. medical renal disease. Mildly prominent common bile duct in this patient who is status post cholecystectomy. Mild prominence of the intrahepatic biliary tree. GI: on Pepcid 10 mg IV q. 12 hours for GI prophylaxis. Monitor LFT, Hepatitis profile is negative ID: Continue Rocephin for COPD exac Monitor for signs of infection( fever and WBC). Heme: Monitor CBC. Endo: SSI with Accu-Cheks for glycemic GI prophylaxis with Pepcid and DVT prophylaxis with SCDs and heparin subQ. Palliative care is following Level 2 Zoe Tatum MD November 29, 2017 10:27
--- NOTE | 2017-11-29 10:48 | PD.CARD.PN ---
Subjective Subjective Remarks no angina. Told me food gets stuck Objective Medications Current Medications Medications (Trade) Dose Ordered Sig/Leo Route Start Time Stop Time Status Last Admin (NS Flush) 2 ml UNSCH PRN IV FLUSH 11/26/17 02:45 (NS Flush) 2 ml BID IV FLUSH 11/26/17 09:00 11/29/17 09:19 (Tylenol) 650 mg Q6H PRN PO 11/26/17 02:45 ([place] 5-325 Mg) 1 tab Q4H PRN PO 11/26/17 02:45 11/28/17 22:48 (Morphine Inj) 2 mg Q3H PRN IV PUSH 11/26/17 02:45 (Piper-Colace) 1 tab BID PO 11/26/17 09:00 11/27/17 21:14 (Senokot) 17.2 mg Q12H PRN PO 11/26/17 02:45 (Dulcolax Supp) 10 mg DAILY PRN RECTAL 11/26/17 02:45 (Lactulose Liq) 30 ml DAILY PRN PO 11/26/17 02:45 (Aspirin Chew) 81 mg DAILY CHEW 11/26/17 09:00 11/29/17 09:17 (Lipitor) 80 mg HS PO 11/26/17 21:00 Future Hold 11/27/17 21:13 (Nitroglycerin 2% Oint) 0.5 inch Q6HR TOPICAL 11/26/17 18:00 11/29/17 05:53 (Cardizem) 30 mg Q6HR PO 11/26/17 18:00 11/29/17 05:53 (Plavix) 75 mg DAILY PO 11/27/17 09:00 11/29/17 09:17 (Heparin Inj) 5,000 units Q12H SQ 11/27/17 15:00 11/29/17 04:16 (SoluMEDROL INJ) 60 mg Q8HR IV PUSH 11/28/17 14:00 11/29/17 05:53 Ceftriaxone Sodium 1000 mg/ Sodium Chloride 100 ml @ 200 mls/hr Q24H IV 11/28/17 14:00 11/28/17 14:59 (D50w (Vial) Inj) 50 ml UNSCH PRN IV PUSH 11/28/17 13:00 (Glucagon Inj) 1 mg UNSCH PRN OTHER 11/28/17 13:00 (NovoLIN R SUPPLEMENTAL SCALE) 1 Q4H SQ 11/28/17 13:00 (Pulmicort Respule Neb) 0.25 mg Q12HR NEB NEB 11/28/17 13:00 11/29/17 07:46 (Duoneb Neb) 1 ampule Q4HR NEB NEB 11/28/17 16:00 11/29/17 07:46 (Duoneb Neb) 1 ampule Q2HR NEB PRN NEB 11/28/17 13:15 (Pepcid) 10 mg BID PO 11/29/17 21:00 Vital Signs / I&O Vital Signs Date Time Temp Pulse Resp B/P (MAP) Pulse Ox O2 Delivery O2 Flow Rate FiO2 11/29/17 08:02 92 Nasal Cannula 6.00 11/29/17 07:50 94 Simple Mask 8.00 11/29/17 07:46 100 11/29/17 07:46 97.9 83 18 107/51 (69) 96 11/29/17 07:46 96 Simple Mask 10.00 11/29/17 04:04 95 Simple Mask 10.00 11/29/17 04:04 98.0 93 17 105/57 (73) 95 11/29/17 04:04 94 11/28/17 23:14 95 Simple Mask 10.00 11/28/17 23:14 98.2 102 18 124/76 (92) 95 11/28/17 23:14 103 11/28/17 20:34 93 Simple Mask 10.00 11/28/17 19:30 98.0 98 17 115/59 (77) 95 11/28/17 19:30 95 Simple Mask 10.00 11/28/17 19:00 92 11/28/17 15:30 95 80 11/28/17 15:20 110 11/28/17 15:00 97 Bi-Pap 90 11/28/17 15:00 98.5 88 20 118/67 (84) 97 11/28/17 11:18 90 75 11/28/17 11:17 100 11/28/17 11:00 98.3 90 18 110/62 (78) 89 I/O 11/28/17 11/28/17 11/28/17 11/29/17 11/29/17 11/29/17 07:00 15:00 23:00 07:00 15:00 23:00 Intake Total 200 ml 200 ml 240 ml Output Total 400 ml 750 ml 550 ml Balance -200 ml -550 ml -310 ml Intake Oral 200 ml 100 ml 240 ml IV Total 100 ml Output Urine Total 400 ml 750 ml 550 ml # Bowel Movements 0 0 Physical Exam alert non-toxic appearing Chest-severe decreased BS CV S1S2 RRR no edema Sats drop with minimal activity On nasal cannula Laboratory Laboratory Tests Test 11/28/17 11:51 11/28/17 13:27 11/28/17 14:53 11/28/17 16:35 Blood Gas Puncture Site RT RADIAL RT RADIAL Blood Gas Patient Temperature 98.6 98.6 Blood Gas HCO3 28 mmol/L 28 mmol/L Blood Gas Base Excess 2.4 mmol/L 2.3 mmol/L Blood Gas Oxygen Saturation 85 % 91 % Arterial Blood pH 7.33 7.34 Arterial Blood Partial Pressure CO2 54 mmHg 53 mmHg Arterial Blood Partial Pressure O2 57 mmHg 72 mmHg Arterial Blood Oxygen Content 14.0 Vol % 15.0 Vol % Arterial Blood Carboxyhemoglobin 0.7 % 0.7 % Arterial Blood Methemoglobin 1.4 % 1.3 % Blood Gas Hemoglobin 11.7 G/DL 11.6 G/DL Oxygen Delivery Device BIPAP BIPAP Blood Gas Ventilator Setting IPAP10/EPAP5 IPAP15/EPAP5 Blood Gas Inspired Oxygen 75 % 70 % White Blood Count 9.6 TH/MM3 Red Blood Count 3.89 MIL/MM3 Hemoglobin 11.8 GM/DL Hematocrit 35.4 % Mean Corpuscular Volume 91.2 FL Mean Corpuscular Hemoglobin 30.3 PG Mean Corpuscular Hemoglobin Concent 33.3 % Red Cell Distribution Width 14.8 % Platelet Count 221 TH/MM3 Mean Platelet Volume 11.0 FL Neutrophils (%) (Auto) 93.1 % Lymphocytes (%) (Auto) 4.0 % Monocytes (%) (Auto) 2.8 % Eosinophils (%) (Auto) 0.0 % Basophils (%) (Auto) 0.1 % Neutrophils # (Auto) 8.9 TH/MM3 Lymphocytes # (Auto) 0.4 TH/MM3 Monocytes # (Auto) 0.3 TH/MM3 Eosinophils # (Auto) 0.0 TH/MM3 Basophils # (Auto) 0.0 TH/MM3 CBC Comment DIFF FINAL Differential Comment Blood Urea Nitrogen 45 MG/DL Creatinine 2.39 MG/DL Random Glucose 127 MG/DL Total Protein 6.7 GM/DL Albumin 3.2 GM/DL Calcium Level 8.8 MG/DL Alkaline Phosphatase 94 U/L Aspartate Amino Transf (AST/SGOT) 83 U/L Alanine Aminotransferase (ALT/SGPT) 78 U/L Total Bilirubin 0.5 MG/DL Sodium Level 136 MEQ/L Potassium Level 4.8 MEQ/L Chloride Level 99 MEQ/L Carbon Dioxide Level 28.7 MEQ/L Anion Gap 8 MEQ/L Estimat Glomerular Filtration Rate 19 ML/MIN B-Type Natriuretic Peptide 960 PG/ML Hepatitis A IgM Antibody NONREACTIVE Hepatitis B Surface Antigen NONREACTIVE Hepatitis B Core IgM Antibody NONREACTIVE Hepatitis C IgG Antibody NONREACTIVE Urine Color LIGHT-YELLOW Urine Turbidity CLEAR Urine pH 5.0 Urine Specific [place] 1.009 Urine Protein TRACE mg/dL Urine Glucose (UA) NEG mg/dL Urine Ketones NEG mg/dL Urine Occult Blood NEG Urine Nitrite NEG Urine Bilirubin NEG Urine Urobilinogen LESS THAN 2.0 MG/DL Urine Leukocyte Esterase NEG Urine WBC LESS THAN 1 /hpf Urine Hyaline Casts 3 /lpf Microscopic Urinalysis Comment CATH-CULT NOT IND Test 11/28/17 22:44 11/29/17 04:20 Blood Gas Puncture Site RT RADIAL Blood Gas Patient Temperature 98.6 Blood Gas HCO3 28 mmol/L Blood Gas Base Excess 3.0 mmol/L Blood Gas Oxygen Saturation 94 % Arterial Blood pH 7.36 Arterial Blood Partial Pressure CO2 50 mmHg Arterial Blood Partial Pressure O2 83 mmHg Arterial Blood Oxygen Content 15.1 Vol % Arterial Blood Carboxyhemoglobin 0.8 % Arterial Blood Methemoglobin 1.4 % Blood Gas Hemoglobin 11.4 G/DL Oxygen Delivery Device SIMPLE MASK Blood Gas Liter Flow 10 L/M White Blood Count 10.0 TH/MM3 Red Blood Count 3.92 MIL/MM3 Hemoglobin 11.9 GM/DL Hematocrit 36.1 % Mean Corpuscular Volume 92.1 FL Mean Corpuscular Hemoglobin 30.3 PG Mean Corpuscular Hemoglobin Concent 32.9 % Red Cell Distribution Width 14.5 % Platelet Count 200 TH/MM3 Mean Platelet Volume 10.7 FL Neutrophils (%) (Auto) 93.8 % Lymphocytes (%) (Auto) 2.9 % Monocytes (%) (Auto) 3.1 % Eosinophils (%) (Auto) 0.0 % Basophils (%) (Auto) 0.2 % Neutrophils # (Auto) 9.4 TH/MM3 Lymphocytes # (Auto) 0.3 TH/MM3 Monocytes # (Auto) 0.3 TH/MM3 Eosinophils # (Auto) 0.0 TH/MM3 Basophils # (Auto) 0.0 TH/MM3 CBC Comment DIFF FINAL Differential Comment Blood Urea Nitrogen 50 MG/DL Creatinine 2.51 MG/DL Random Glucose 132 MG/DL Total Protein 6.5 GM/DL Albumin 3.2 GM/DL Calcium Level 9.2 MG/DL Magnesium Level 2.1 MG/DL Alkaline Phosphatase 80 U/L Aspartate Amino Transf (AST/SGOT) 68 U/L Alanine Aminotransferase (ALT/SGPT) 73 U/L Total Bilirubin 0.5 MG/DL Sodium Level 139 MEQ/L Potassium Level 4.4 MEQ/L Chloride Level 99 MEQ/L Carbon Dioxide Level 29.2 MEQ/L Anion Gap 11 MEQ/L Estimat Glomerular Filtration Rate 18 ML/MIN Assessment and Plan Problem List: (1) COPD (chronic obstructive pulmonary disease) ICD Codes: J44.9 - Chronic obstructive pulmonary disease, unspecified Status: Acute Permanent Comment: End-stage Last Edited By: Agus Hart MD on November 27, 2017 11:55 (2) NSTEMI (non-ST elevated myocardial infarction) ICD Codes: I21.4 - Non-ST elevation (NSTEMI) myocardial infarction Status: Acute (3) Renal insufficiency ICD Codes: N28.9 - Disorder of kidney and ureter, unspecified Status: Acute Assessment and Plan medical therapy Problem Qualifiers (1) COPD (chronic obstructive pulmonary disease): Qualified Codes: J44.1 - Chronic obstructive pulmonary disease with (acute) exacerbation Agus Hart MD November 29, 2017 10:48
--- NOTE | 2017-11-29 11:02 | HHI.NPPN ---
Subjective Renal Failure: Chronic, Acute, Stage IV Interval History She is off BiPap. Awake with unlabored respirations. Renal function is worse. Reporting nausea throughout most of the night. Telemetry showing trigeminy. Feels food is getting stuck in her throat. (Mellissa Garcia) Review of Systems General Constitutional: Fatigue (Mellissa Garcia) Respiratory Lungs: SOB, Cough (Mellissa Garcia) Cardiovascular Cardiac: Palpitations (Mellissa Garcia) Objective Data Data Vital Signs Date Time Temp Pulse Resp B/P (MAP) Pulse Ox O2 Delivery O2 Flow Rate FiO2 11/29/17 08:02 92 Nasal Cannula 6.00 11/29/17 07:50 94 Simple Mask 8.00 11/29/17 07:46 100 11/29/17 07:46 97.9 83 18 107/51 (69) 96 11/29/17 07:46 96 Simple Mask 10.00 11/29/17 04:04 95 Simple Mask 10.00 11/29/17 04:04 98.0 93 17 105/57 (73) 95 11/29/17 04:04 94 11/28/17 23:14 95 Simple Mask 10.00 11/28/17 23:14 98.2 102 18 124/76 (92) 95 11/28/17 23:14 103 11/28/17 20:34 93 Simple Mask 10.00 11/28/17 19:30 98.0 98 17 115/59 (77) 95 11/28/17 19:30 95 Simple Mask 10.00 11/28/17 19:00 92 11/28/17 15:30 95 80 11/28/17 15:20 110 11/28/17 15:00 97 Bi-Pap 90 11/28/17 15:00 98.5 88 20 118/67 (84) 97 11/28/17 11:18 90 75 11/28/17 11:17 100 11/28/17 11:00 98.3 90 18 110/62 (78) 89 (Mellissa Garcia) -: 11/29/17 0420 11/29/17 0420 Imaging Last 72 hours Impressions Chest X-Ray 11/28/17 0000 Signed Impressions: Service Date/Time: Tuesday, November 28, 2017 12:33 - CONCLUSION: 1. Bilateral effusions and interstitial prominence suggesting congestive failure. The effusions appear minimally larger than previous seen on 11/25/17. Deven Caceres MD Abdomen Ultrasound 11/28/17 0000 Signed Impressions: Service Date/Time: Tuesday, November 28, 2017 13:57 - CONCLUSION: Abdominal aortic aneurysm. Mild increased echotexture of the renal cortices can be seen with medical renal disease. Mildly prominent common bile duct in this patient who is status post cholecystectomy. There is also mild prominence of the intrahepatic biliary tree. Stefano Zepeda MD (Mellissa Garcia. PACKAGE COLLECTOR) Physical Exam General Appearance: Well Developed, Well Nourished, No Acute Distress, Comfortable Appearance Remarks Elderly female (Mellissa Garcia B. PACKAGE COLLECTOR) Throat Throat Exam: Oral Mucosa Adair & Moist (Mellissa Garcia B. PACKAGE COLLECTOR) Pulmonary Resp Exam: No Distress, Crackles Resp Remarks more on right lower lobe (Mellissa Garcia B. PACKAGE COLLECTOR) Cardiology CV Exam: Normal Sinus Rhythm, Irregular CV Remarks Trigeminy (Mellissa Garcia B. PACKAGE COLLECTOR) Gastrointestinal/Abdomen GI Exam: Soft, Non-Tender, Bowel Sounds Present (Mellissa Garcia B. PACKAGE COLLECTOR) Musculoskeletal MS Exam: Joints Intact, Normal Tone, Unable to Ambulate (Mellissa Garcia B. PACKAGE COLLECTOR) Integumentary Skin Exam: Clear, Warm, Dry, Intact (Mellissa Garcia B. PACKAGE COLLECTOR) Extremeties Extremities Exam: No Edema, Pedal Pulses Palpable (eMllissa Garcia B. PACKAGE COLLECTOR) Neurologic Neuro Exam: Alert, Awake, Oriented, Speech Clear, Moving All Extremities (Mellissa Garcia B. PACKAGE COLLECTOR) Psychiatric Psych Exam: Appropriate Responses (Mellissa GarciaP) Assessment/Plan Discussed Condition With: Patient Assessment Summary: [place]/Acute Renal Failure, CHF, Hypertension, CKD Stage IV Problem List: (1) Acute worsening of stage 4 chronic kidney disease ICD Codes: N28.9 - Disorder of kidney and ureter, unspecified; N18.4 - Chronic kidney disease, stage 4 (severe) Plan: She has underlying CKD 4, baseline creatinine around 2 from 2011. Imaging shows bilateral renal atrophy; in addition she most likely has CKD secondary to nephrosclerosis. Acute worsening could be due to renal hypoperfusion, or increased renal vein pressure. Her renal function is worse. High BUN may be due to increased steroid doses. Given Lasix yesterday, currently not on scheduled doses. Repeat labs daily. Monitor urine output. PO fluids encouraged. Avoid nephrotoxic agents. Monitor urine output. Maintain du for now. (2) CHF (congestive heart failure) ICD Codes: I50.9 - Heart failure, unspecified Status: Chronic Plan: s/p NSTEMI. Cardiology following. Appears not to be in overt overload. Lasix being given intermittently. Currently not receiving scheduled doses. Echo reviewed, she has pulmonary hypertension. Avoid IVF. Monitor fluid status. (3) NSTEMI (non-ST elevated myocardial infarction) ICD Codes: I21.4 - Non-ST elevation (NSTEMI) myocardial infarction Status: Acute Plan: Cardiology following. No intervention planned due to pulmonary issues and history of end stage COPD. continue supportive care. (4) COPD (chronic obstructive pulmonary disease) ICD Codes: J44.9 - Chronic obstructive pulmonary disease, unspecified Status: Acute Plan: Off BiPap currently. On oxygen now. Being treated for COPD exacerbation. Monitor respiratory status. Having issues while eating. May have esophageal stricture that is making eating difficult. Consider GI evaluation if it persists. She has required esophageal stretching in the past. Permanent Comment: End-stage Last Edited By: Agus Hart MD on November 27, 2017 11:55 (Mellissa Garcia) Plan patient was seen and examined. Off BIPAP. Renal function is slightly worse. Overall poor prognosis. (Julian Cevallos MD) Problem Qualifiers (1) CHF (congestive heart failure): Qualified Codes: I50.32 - Chronic diastolic (congestive) heart failure (2) COPD (chronic obstructive pulmonary disease): Qualified Codes: J44.1 - Chronic obstructive pulmonary disease with (acute) exacerbation Mellissa Garcia November 29, 2017 11:02 Julian Cevallos MD November 30, 2017 08:12
[2017-11-29] MEDS: cefTRIAXone INJ 1,000 MG in SODIUM CHLORIDE 0.9% INJ 100 ML IV SCH (14:04)
[2017-11-29] MEDS: ACETAMINOPHEN/HYDROcodone 325 MG/5 MG TAB PO PRN ×2 (14:29→17:53)
--- NOTE | 2017-11-29 15:23 | HHI.HCPN ---
Reason for visit a. To assist with evaluation and management of symptoms including: dyspnea, debility, pain b. To assist medical decision maker(s) with: better understanding of current medical conditions; weighing benefits/burdens of medical treatment options; making medical treatment decisions. . Subjective/Interval History Follow up visit on 82 year old female admitted with NSTEMI and COPD exacerbation. Cardiology recommending conservative medical management given patient's advance lung disease. Patient has been weane dof of BiPAP. Currently oxygen saturations are in the low to mid 90s on 6L O2 via nasal canula. Patient denies chest pain; desats with minimal exertion. Complaining of nausea over night. Nephrology was consulted for acute on chronic renal disease. Patient has underlying CKD, stage 4 with a baseline creatinine of 2 in 2011. Imaging shows bilateral renal atrophy; in addition she most likely has CKD secondary to nephrosclerosis. Acute worsening of renal functioning could be secondary to hypoperfusion or increased renal pressure. BUN:50; creatinine 2.51; GFR 18 today 11/29/17. Met with patient's daughter and grand-daughter today. They state patient is significantly debilitated at baseline due to her underlying lung disease and feel "it is only a matter of time." They are in the process of looking for an TRINI for the patient and her spouse do to their mutual declines. The patient's family inquired about hospice services which would be an appropriate option for the patient if her medical treatment goals are hospice appropriate; will need to discuss further with the patient. . Family/friend interactions See interval history . Advance Directives Living Will: Copy in medical record Health Care Surrogate: Copy in medical record Advance Directive Specifics Date completed: Nov, 2017 . Health Care Surrogate(s): Patient's spouse (Frank) is designated as the primary healthcare surrogate decision maker. Daughter (Sharon) would be the first alternate healthcare surrogate decision-maker, and son (Simone) would be the second alternate decision -maker. . Documented care wishes: Living will completed 11/28/17 states the patient is agreeable to short term intubation and mechanical ventilation but would not want prolonged ventilatory support. Patient would NOT agree to tracheostomy or PEG tube placement but would instead want to transition to comfort focused care at that time. The patient was unable to sign the document secondary to weakness and dyspnea ( patient becomes hypoxic with any care); conversations was witness by 3 persons. Daughter states these documented wished are consistent with conversations she has had with her mother previously regarding medical treatment goals. Copies of document are available in the patient's paper chart and have been scanned into the EMR. . Objective Vital Signs Date Time Temp Pulse Resp B/P (MAP) Pulse Ox O2 Delivery O2 Flow Rate FiO2 11/29/17 15:00 91 Nasal Cannula 6.00 11/29/17 15:00 100 11/29/17 15:00 98.0 91 24 127/55 (79) 96 11/29/17 11:52 Nasal Cannula 5.00 11/29/17 11:00 98.3 97 22 110/68 (82) 96 11/29/17 11:00 97 11/29/17 11:00 97 Nasal Cannula 6.00 11/29/17 08:02 92 Nasal Cannula 6.00 11/29/17 07:50 94 Simple Mask 8.00 11/29/17 07:46 100 11/29/17 07:46 97.9 83 18 107/51 (69) 96 11/29/17 07:46 96 Simple Mask 10.00 11/29/17 04:04 95 Simple Mask 10.00 11/29/17 04:04 98.0 93 17 105/57 (73) 95 11/29/17 04:04 94 11/28/17 23:14 95 Simple Mask 10.00 11/28/17 23:14 98.2 102 18 124/76 (92) 95 11/28/17 23:14 103 11/28/17 20:34 93 Simple Mask 10.00 11/28/17 19:30 98.0 98 17 115/59 (77) 95 11/28/17 19:30 95 Simple Mask 10.00 11/28/17 19:00 92 11/28/17 15:30 95 80 Intake & Output 11/29/17 11/29/17 06:59 18:59 Intake Total 240 ml Output Total 550 ml Balance -310 ml Intake Oral 240 ml Output Urine Total 550 ml # Bowel Movements 0 . Physical Exam CONSTITUTIONAL/GENERAL: This is a pale, elderly female patient in no acute distress TUBES/LINES/DRAINS: Pure wick catheter, nasal cannula, PIV SKIN: No jaundice, rashes, or lesions. Ecchymoses on upper extremities. No wounds seen anteriorly. Skin is thin, fragile; skin temperature appropriate. Not diaphoretic. HEAD: Atraumatic. Normocephalic. EYES: Pupils equal and round and reactive. Extraocular motions intact. No scleral icterus. No injection or drainage. Fundi not examined. ENT: Hearing grossly normal. Nose without bleeding or purulent drainage. NECK: Trachea midline. Supple, nontender. No palpable thyroid enlargement or nodularity. CARDIOVASCULAR: Regular rate. Intermittently tachycardic without murmurs, gallops, or rubs. No JVD. Peripheral pulses symmetric. RESPIRATORY/CHEST: Oxygen saturations stable on 6L via nc. Breath sounds diminished bilaterally. No wheezes, rales, or rhonchi. GASTROINTESTINAL: Abdomen soft, non-tender, nondistended. No hepato-splenomegaly , or palpable masses. No guarding. Bowel sounds present. GENITOURINARY: Without palpable bladder distension. Pure wick catheter in place. MUSCULOSKELETAL: Extremities without clubbing, cyanosis, or edema. No mottling or clubbing. LYMPHATICS: No palpable cervical or supraclavicular adenopathy. NEUROLOGICAL: Awake and alert. Follows commands. Cognitively sharp. Moves all extremities. PSYCHIATRIC: No obvious anxiety/depression. No apparent hallucinations or other psychotic thought process. . Diagnostic Tests Laboratory Laboratory Tests Test 11/27/17 03:01 11/28/17 03:30 11/28/17 11:51 11/28/17 13:27 White Blood Count 7.7 TH/MM3 (4.0-11.0) 9.6 TH/MM3 (4.0-11.0) Red Blood Count 3.71 MIL/MM3 (4.00-5.30) 3.89 MIL/MM3 (4.00-5.30) Hemoglobin 11.2 GM/DL (11.6-15.3) 11.8 GM/DL (11.6-15.3) Hematocrit 33.7 % (35.0-46.0) 35.4 % (35.0-46.0) Mean Corpuscular Volume 90.8 FL (80.0-100.0) 91.2 FL (80.0-100.0) Mean Corpuscular Hemoglobin 30.3 PG (27.0-34.0) 30.3 PG (27.0-34.0) Mean Corpuscular Hemoglobin Concent 33.4 % (32.0-36.0) 33.3 % (32.0-36.0) Red Cell Distribution Width 15.0 % (11.6-17.2) 14.8 % (11.6-17.2) Platelet Count 175 TH/MM3 (150-450) 221 TH/MM3 (150-450) Mean Platelet Volume 10.8 FL (7.0-11.0) 11.0 FL (7.0-11.0) Neutrophils (%) (Auto) 88.5 % (16.0-70.0) 93.1 % (16.0-70.0) Lymphocytes (%) (Auto) 9.8 % (9.0-44.0) 4.0 % (9.0-44.0) Monocytes (%) (Auto) 1.2 % (0.0-8.0) 2.8 % (0.0-8.0) Eosinophils (%) (Auto) 0.1 % (0.0-4.0) 0.0 % (0.0-4.0) Basophils (%) (Auto) 0.4 % (0.0-2.0) 0.1 % (0.0-2.0) Neutrophils # (Auto) 6.9 TH/MM3 (1.8-7.7) 8.9 TH/MM3 (1.8-7.7) Lymphocytes # (Auto) 0.8 TH/MM3 (1.0-4.8) 0.4 TH/MM3 (1.0-4.8) Monocytes # (Auto) 0.1 TH/MM3 (0-0.9) 0.3 TH/MM3 (0-0.9) Eosinophils # (Auto) 0.0 TH/MM3 (0-0.4) 0.0 TH/MM3 (0-0.4) Basophils # (Auto) 0.0 TH/MM3 (0-0.2) 0.0 TH/MM3 (0-0.2) CBC Comment DIFF FINAL DIFF FINAL Differential Comment Blood Urea Nitrogen 41 MG/DL (7-18) 43 MG/DL (7-18) 45 MG/DL (7-18) Creatinine 2.92 MG/DL (0.50-1.00) 2.45 MG/DL (0.50-1.00) 2.39 MG/DL (0.50-1.00) Random Glucose 83 MG/DL (74-106) 122 MG/DL (74-106) 127 MG/DL (74-106) Total Protein 6.3 GM/DL (6.4-8.2) 6.7 GM/DL (6.4-8.2) Albumin 2.9 GM/DL (3.4-5.0) 3.2 GM/DL (3.4-5.0) Calcium Level 8.5 MG/DL (8.5-10.1) 8.5 MG/DL (8.5-10.1) 8.8 MG/DL (8.5-10.1) Alkaline Phosphatase 91 U/L (45-117) 94 U/L (45-117) Aspartate Amino Transf (AST/SGOT) 110 U/L (15-37) 83 U/L (15-37) Alanine Aminotransferase (ALT/SGPT) 67 U/L (10-53) 78 U/L (10-53) Total Bilirubin 0.5 MG/DL (0.2-1.0) 0.5 MG/DL (0.2-1.0) Sodium Level 140 MEQ/L (136-145) 136 MEQ/L (136-145) 136 MEQ/L (136-145) Potassium Level 4.7 MEQ/L (3.5-5.1) 4.8 MEQ/L (3.5-5.1) 4.8 MEQ/L (3.5-5.1) Chloride Level 103 MEQ/L (98-107) 99 MEQ/L (98-107) 99 MEQ/L (98-107) Carbon Dioxide Level 27.9 MEQ/L (21.0-32.0) 26.9 MEQ/L (21.0-32.0) 28.7 MEQ/L (21.0-32.0) Anion Gap 9 MEQ/L (5-15) 10 MEQ/L (5-15) 8 MEQ/L (5-15) Estimat Glomerular Filtration Rate 15 ML/MIN (>89) 19 ML/MIN (>89) 19 ML/MIN (>89) Blood Gas Puncture Site RT RADIAL Blood Gas Patient Temperature 98.6 Blood Gas HCO3 28 mmol/L (22-26) Blood Gas Base Excess 2.4 mmol/L (-2-2) Blood Gas Oxygen Saturation 85 % (90-100) Arterial Blood pH 7.33 (7.380-7.420) Arterial Blood Partial Pressure CO2 54 mmHg (38-42) Arterial Blood Partial Pressure O2 57 mmHg (61-120) Arterial Blood Oxygen Content 14.0 Vol % (12.0-20.0) Arterial Blood Carboxyhemoglobin 0.7 % (0-4) Arterial Blood Methemoglobin 1.4 % (0-2) Blood Gas Hemoglobin 11.7 G/DL (12.0-16.0) Oxygen Delivery Device BIPAP Blood Gas Ventilator Setting IPAP10/EPAP5 Blood Gas Inspired Oxygen 75 % B-Type Natriuretic Peptide 960 PG/ML (0-100) Hepatitis A IgM Antibody NONREACTIVE (NONREACTIVE) Hepatitis B Surface Antigen NONREACTIVE (NONREACTIVE) Hepatitis B Core IgM Antibody NONREACTIVE (NONREACTIVE) Hepatitis C IgG Antibody NONREACTIVE (NONREACTIVE) Test 11/28/17 14:53 11/28/17 16:35 11/28/17 22:44 11/29/17 04:20 Urine Color LIGHT-YELLOW (YELLW/STRAW) Urine Turbidity CLEAR (CLEAR) Urine pH 5.0 (5.0-8.5) Urine Specific [place] 1.009 (1.002-1.035) Urine Protein TRACE mg/dL (NEG-TRACE) Urine Glucose (UA) NEG mg/dL (NEG) Urine Ketones NEG mg/dL (NEG) Urine Occult Blood NEG (NEG) Urine Nitrite NEG (NEG) Urine Bilirubin NEG (NEG) Urine Urobilinogen LESS THAN 2.0 MG/DL (LESS Urine Leukocyte Esterase NEG (NEG) Urine WBC LESS THAN 1 /hpf (0-5) Urine Hyaline Casts 3 /lpf (RARE) Microscopic Urinalysis Comment CATH-CULT NOT IND Blood Gas Puncture Site RT RADIAL RT RADIAL Blood Gas Patient Temperature 98.6 98.6 Blood Gas HCO3 28 mmol/L (22-26) 28 mmol/L (22-26) Blood Gas Base Excess 2.3 mmol/L (-2-2) 3.0 mmol/L (-2-2) Blood Gas Oxygen Saturation 91 % (90-100) 94 % (90-100) Arterial Blood pH 7.34 (7.380-7.420) 7.36 (7.380-7.420) Arterial Blood Partial Pressure CO2 53 mmHg (38-42) 50 mmHg (38-42) Arterial Blood Partial Pressure O2 72 mmHg (61-120) 83 mmHg (61-120) Arterial Blood Oxygen Content 15.0 Vol % (12.0-20.0) 15.1 Vol % (12.0-20.0) Arterial Blood Carboxyhemoglobin 0.7 % (0-4) 0.8 % (0-4) Arterial Blood Methemoglobin 1.3 % (0-2) 1.4 % (0-2) Blood Gas Hemoglobin 11.6 G/DL (12.0-16.0) 11.4 G/DL (12.0-16.0) Oxygen Delivery Device BIPAP SIMPLE MASK Blood Gas Ventilator Setting IPAP15/EPAP5 Blood Gas Inspired Oxygen 70 % Blood Gas Liter Flow 10 L/M White Blood Count 10.0 TH/MM3 (4.0-11.0) Red Blood Count 3.92 MIL/MM3 (4.00-5.30) Hemoglobin 11.9 GM/DL (11.6-15.3) Hematocrit 36.1 % (35.0-46.0) Mean Corpuscular Volume 92.1 FL (80.0-100.0) Mean Corpuscular Hemoglobin 30.3 PG (27.0-34.0) Mean Corpuscular Hemoglobin Concent 32.9 % (32.0-36.0) Red Cell Distribution Width 14.5 % (11.6-17.2) Platelet Count 200 TH/MM3 (150-450) Mean Platelet Volume 10.7 FL (7.0-11.0) Neutrophils (%) (Auto) 93.8 % (16.0-70.0) Lymphocytes (%) (Auto) 2.9 % (9.0-44.0) Monocytes (%) (Auto) 3.1 % (0.0-8.0) Eosinophils (%) (Auto) 0.0 % (0.0-4.0) Basophils (%) (Auto) 0.2 % (0.0-2.0) Neutrophils # (Auto) 9.4 TH/MM3 (1.8-7.7) Lymphocytes # (Auto) 0.3 TH/MM3 (1.0-4.8) Monocytes # (Auto) 0.3 TH/MM3 (0-0.9) Eosinophils # (Auto) 0.0 TH/MM3 (0-0.4) Basophils # (Auto) 0.0 TH/MM3 (0-0.2) CBC Comment DIFF FINAL Differential Comment Blood Urea Nitrogen 50 MG/DL (7-18) Creatinine 2.51 MG/DL (0.50-1.00) Random Glucose 132 MG/DL (74-106) Total Protein 6.5 GM/DL (6.4-8.2) Albumin 3.2 GM/DL (3.4-5.0) Calcium Level 9.2 MG/DL (8.5-10.1) Magnesium Level 2.1 MG/DL (1.5-2.5) Alkaline Phosphatase 80 U/L (45-117) Aspartate Amino Transf (AST/SGOT) 68 U/L (15-37) Alanine Aminotransferase (ALT/SGPT) 73 U/L (10-53) Total Bilirubin 0.5 MG/DL (0.2-1.0) Sodium Level 139 MEQ/L (136-145) Potassium Level 4.4 MEQ/L (3.5-5.1) Chloride Level 99 MEQ/L (98-107) Carbon Dioxide Level 29.2 MEQ/L (21.0-32.0) Anion Gap 11 MEQ/L (5-15) Estimat Glomerular Filtration Rate 18 ML/MIN (>89) Result Diagram: 11/29/17 0420 11/29/17 0420 Imaging Last 72 hours Impressions Chest X-Ray 11/28/17 0000 Signed Impressions: Service Date/Time: Tuesday, November 28, 2017 12:33 - CONCLUSION: 1. Bilateral effusions and interstitial prominence suggesting congestive failure. The effusions appear minimally larger than previous seen on 11/25/17. Deven Caceres MD Abdomen Ultrasound 11/28/17 0000 Signed Impressions: Service Date/Time: Tuesday, November 28, 2017 13:57 - CONCLUSION: Abdominal aortic aneurysm. Mild increased echotexture of the renal cortices can be seen with medical renal disease. Mildly prominent common bile duct in this patient who is status post cholecystectomy. There is also mild prominence of the intrahepatic biliary tree. Stefano Zepeda MD . Assessment and Plan Disease Oriented Problem List: (1) Hypertension (2) CHELSEA (obstructive sleep apnea) (3) COPD (chronic obstructive pulmonary disease) (4) CHF (congestive heart failure) (5) CKD (chronic kidney disease), stage IV (6) NSTEMI (non-ST elevated myocardial infarction) Symptom Scale: (1) Debility 0-10 Scale: Unable to quantify (2) Dyspnea 0-10 Scale: Unable to quantify (3) Pain 0-10 Scale: Unable to quantify Pertinent Non-Medical Issues Psychosocial: Patient is originally from [place]. She has 4 children (Sharon, Agnes , Simone and Jeremy). Simone and Jeremy lives in [place]. Sharon lives locally, and Agnes lives in [place]. Patient has been to her current (Frank) for 48 years. Frank was the patient's primary caregiver but he is currently receiving rehab and likely will be unable to care for her in the future. Family has been considering looking into assisted living facilities. Spiritual: [employer] bruce Legal: Patient currently has insight and judgment related to her medical conditions. In the event that she loses capacity for medical decision-making, the patient's spouse (Frank) is designated as the primary healthcare surrogate decision maker. Daughter (Sharon) would be the first alternate healthcare surrogate decision-maker, and son (Simone) would be the second alternate decision -maker. Ethical issues impacting care: No known ethical issues impacting care. . Important Contacts Frank Celis, : [phone] Sharon Bernice/Lux, daughter: [phone] or [phone] (home) Simone Chand, son: [phone] . Prognosis Patient is an 82 year old female with extensive cardiopulmonary disease s/p NSTEMI. Unfortunately, she is not a candidate for invasive cardiac treatment due to the severity of her lung disease. Patient is significantly disabled and is high risk for ongoing decline and setbacks. Patient would be hospice appropriate if/when goals become comfort oriented. . Code Status: Full Code Plan * FULL CODE * Decision-making: Patient currently has insight and judgment related to her medical conditions. In the event that she loses capacity for medical decision- making,the patient's spouse (Frank) is designated as the primary healthcare surrogate decision maker. Daughter (Sharon) would be the first alternate healthcare surrogate decision-maker, and son (Simone) would be the second alternate decision-maker. * AGGRESSIVE GOALS * Palliative care met with the patient who indicated she would consent to short- term intubation and mechanical ventilation, but she would not want prolonged ventilator support. She indicated she would NOT be agreeable to tracheostomy or PEG tube placement but would instead want to transition to comfort focused care at that time. The patient has had similar Dr. Reed and Dr. Anderson. Daughter (Sharon) states my conversation with the patient is consistent with conversation she has had with the patient previously. * Palliative care met with patient's daughte (Agnes) and granddaughter (Kathryn). * Discussed current medical treatment goals with Dr. Victoria. * Symptom management: == Dyspnea: Patient has a history of severe lung disease and is oxygen dependent at home. Was weaned of BiPAP; oxygen saturations in the low to mid 90s on 6L O2 via nasal cannula. Nursing reports patient continues to desaturate with minimal exertion. == Debility: Daughter states the patient's activity level is compromised secondary to dyspnea with minimal exertion. She reports her mother becomes SOB when walking short distance from the family room to the kitchen. Patient is able to dress herself but then needs to rest for nearly an hour. On the days the patient showers, "she'd done for the day " per family report. They are considering placement upon discharge because they do not feel the patient and her spouse can live alone any longer. == Pain: Patient c/o acute chest pain on admission; pain has now resolved. Receiving nitroglycerin 2% ointment every 6 hours topically. PRN acetaminophen, norco and IV morphine are ordered for breakthrough pain. 24 hour PRN Requirements = Alexander 5-325mg PO x 2. Palliative care will monitor PRN requirements and make recommendations as needed. * Palliative care will continue to follow this patient throughout her hospitalization to establish stress, assist with symptom management and clarification of medical treatment goals. . Attestation To help prompt me to consider important information that might be impacting today's encounter and assessment, information from prior notes written by myself or my colleagues may have been "brought forward" into today's note. My signature on this note, however, is an attestation that I personally performed the exam, history, and/or decision-making noted today, and, unless otherwise indicated, the interactions with patient, family, and staff as well as the review of records all occurred today. I also attest that the listed assessment and stated plan reflect my best clinical judgment today based on the combination of historical information, prior notes, and today's exam/ interactions. When time spent is documented, it refers only to time spent today by the signer, or if indicated, combined time spent today by collaborating physician/nurse practitioner. . Debra Jorge November 29, 2017 15:23
--- NOTE | 2017-11-29 20:36 | HHI.PR ---
Subjective Remarks 82 YO WF, Frail, Severe COPD with hypoxia, Ch RF Has NSTMI Weaned to Simple mask No CP Very weak Anxious, eager to go home. Objective Vital Signs Vital Signs Date Time Temp Pulse Resp B/P (MAP) Pulse Ox O2 Delivery O2 Flow Rate FiO2 11/29/17 20:15 89 Simple Mask 6.00 11/29/17 18:19 95 Simple Mask 6.00 11/29/17 15:00 91 Nasal Cannula 6.00 11/29/17 15:00 100 11/29/17 15:00 98.0 91 24 127/55 (79) 96 11/29/17 11:52 Nasal Cannula 5.00 11/29/17 11:00 98.3 97 22 110/68 (82) 96 11/29/17 11:00 97 11/29/17 11:00 97 Nasal Cannula 6.00 11/29/17 08:02 92 Nasal Cannula 6.00 11/29/17 07:50 94 Simple Mask 8.00 11/29/17 07:46 100 11/29/17 07:46 97.9 83 18 107/51 (69) 96 11/29/17 07:46 96 Simple Mask 10.00 11/29/17 04:04 95 Simple Mask 10.00 11/29/17 04:04 98.0 93 17 105/57 (73) 95 11/29/17 04:04 94 11/28/17 23:14 95 Simple Mask 10.00 11/28/17 23:14 98.2 102 18 124/76 (92) 95 11/28/17 23:14 103 I/O 11/28/17 11/28/17 11/28/17 11/29/17 11/29/17 11/29/17 07:00 15:00 23:00 07:00 15:00 23:00 Intake Total 200 ml 200 ml 240 ml 900 ml Output Total 400 ml 750 ml 550 ml 325 ml Balance -200 ml -550 ml -310 ml 575 ml Intake Oral 200 ml 100 ml 240 ml 800 ml IV Total 100 ml 100 ml Output Urine Total 400 ml 750 ml 550 ml 325 ml # Bowel Movements 0 0 0 Result Diagram: 11/29/1741911/29/17419 Objective Remarks GENERAL: Frail elderly WF, mild sob, weak SKIN: Warm and dry. HEAD: Normocephalic. EYES: No scleral icterus. No injection or drainage. NECK: Supple, trachea midline. No JVD or lymphadenopathy. CARDIOVASCULAR: Regular rate and rhythm without murmurs, gallops, or rubs. RESPIRATORY: Breath sounds equal bilaterally. No accessory muscle use. GASTROINTESTINAL: Abdomen soft, non-tender, nondistended. MUSCULOSKELETAL: No cyanosis, or edema. BACK: Nontender without obvious deformity. No CVA tenderness. A/P Assessment and Plan Severe COPD Hypoxia Ch Resp failure NSTMI CHF PLAN: Supplement 02, Cont BIPAP If desaturaates, will need intubation. Will be difficult to wean if intubated Aerosol nebs IV Solumedrol Plavix 75 mg daily Dw Pt DW . Carlos Chan MD November 29, 2017 20:36
[2017-11-29] MEDS: FAMOTIDINE 20 MG TAB PO SCH (21:14)
[2017-11-29] MEDS: methylPREDNISolone SOD SUCC 125 MG/2 ML VIAL IV PUSH SCH (21:15)
[2017-11-30] VITALS (17 sets, daily range): BP systolic 114–152; BP diastolic 63–80; PULSE 72–104; RESP 18–22; TEMP 97.9–98.4; O2SAT 90–99
[2017-11-30] MEDS: DILTIAZEM HCL 30 MG TAB PO SCH ×4 (00:21→17:04)
[2017-11-30] MEDS: NITROGLYCERIN 2% OINT 1 GM PACKET TOPICAL SCH ×4 (00:22→17:04)
[2017-11-30] MEDS: INSULIN NovoLIN REGULAR SUPPLEMENTAL SCALE SQ SCH ×6 (01:00→21:00)
[2017-11-30] MEDS: RESP: ALBUTEROL 2.5 MG/IPRATROPIUM 0.5 MG NEB (SCH) NEB ×5 (03:18→21:02)
[2017-11-30] MEDS: HEPARIN SODIUM - SQ 10,000 UNITS/ML VIAL SQ SCH ×2 (04:01→14:32)
[2017-11-30] MEDS: methylPREDNISolone SOD SUCC 125 MG/2 ML VIAL IV PUSH SCH ×3 (05:29→21:12)
[2017-11-30 06:56] LABS: ALT (GPT) 59 U/L (10-53); AST (GOT) 47 U/L (15-37); BLOOD UREA NITROGEN 55 MG/DL (7-18); CALCIUM 8.9 MG/DL (8.5-10.1); CHLORIDE 100 MEQ/L (98-107); CREATININE 2.39 MG/DL (0.50-1.00); GLOMERULAR FILTRATION RATE 19 ML/MIN (>89); GLUCOSE,RANDOM 135 MG/DL (74-106); SODIUM (NA) 140 MEQ/L (136-145)
[2017-11-30 06:58] LABS: ALKALINE PHOSPHATASE 71 U/L (45-117); TOTAL BILIRUBIN ADULT 0.4 MG/DL (0.2-1.0); TOTAL PROTEIN 6.2 GM/DL (6.4-8.2)
[2017-11-30 07:08] LABS: AUTOMATED NEUTROPHIL # 9.4 TH/MM3 (1.8-7.7); HEMATOCRIT 34.4 % (35.0-46.0); HEMOGLOBIN 11.4 GM/DL (11.6-15.3); LYMPHOCYTE # 0.3 TH/MM3 (1.0-4.8); MEAN CELL VOLUME 91.4 FL (80.0-100.0); MEAN CORPUSCULAR HEMOGLOBIN 30.3 PG (27.0-34.0); MEAN CORPUSCULAR HGB CONC 33.2 % (32.0-36.0); MEAN PLATELET VOLUME 10.7 FL (7.0-11.0); MONO % 3.8 % (0.0-8.0); MONOCYTE # 0.4 TH/MM3 (0-0.9); NEUT % 93.2 % (16.0-70.0); PLATELET COUNT 190 TH/MM3 (150-450); RED BLOOD COUNT 3.77 MIL/MM3 (4.00-5.30)
[2017-11-30] MEDS: RESP: BUDESONIDE 0.25 MG/2 ML NEB NEB SCH ×2 (07:31→21:02)
[2017-11-30] MEDS: DOCUSATE SODIUM 50 MG/SENNA 8.6 MG TAB PO SCH ×2 (08:15→21:00)
[2017-11-30] MEDS: CLOPIDOGREL 75 MG TAB PO SCH (08:16)
[2017-11-30] MEDS: ASPIRIN 81 MG CHEW TAB CHEW SCH (08:16)
[2017-11-30] MEDS: FAMOTIDINE 20 MG TAB PO SCH ×2 (08:16→21:12)
[2017-11-30] MEDS: SODIUM CHLORIDE 0.9% FLUSH 10 ML FLUSH IV FLUSH SCH ×2 (08:16→21:12)
--- NOTE | 2017-11-30 08:47 | HHI.NPPN ---
Subjective Renal Failure: Chronic, Acute, Stage IV Interval History Appears comfortable. Renal function has improved. Review of Systems General Constitutional: Fatigue Objective Data Data Vital Signs Date Time Temp Pulse Resp B/P (MAP) Pulse Ox O2 Delivery O2 Flow Rate FiO2 11/30/17 08:00 94 Nasal Cannula 6.00 11/30/17 08:00 98.1 104 20 125/78 (94) 94 11/30/17 07:31 90 Nasal Cannula 4.50 11/30/17 07:00 94 11/30/17 06:00 98 11/30/17 05:00 95 11/30/17 04:00 98 11/30/17 03:00 98.0 87 22 125/70 (88) 97 11/30/17 03:00 97 11/30/17 03:00 98 Nasal Cannula 6.00 11/30/17 02:00 94 11/30/17 01:00 97 11/30/17 00:00 95 11/29/17 23:00 98.2 94 22 142/76 (98) 98 11/29/17 23:00 97 Nasal Cannula 6.00 11/29/17 23:00 92 11/29/17 21:00 99 11/29/17 20:15 89 Simple Mask 6.00 11/29/17 20:00 98.4 97 22 124/70 (88) 95 11/29/17 20:00 97 11/29/17 19:00 95 11/29/17 19:00 96 Nasal Cannula 6.00 11/29/17 18:19 95 Simple Mask 6.00 11/29/17 15:00 91 Nasal Cannula 6.00 11/29/17 15:00 100 11/29/17 15:00 98.0 91 24 127/55 (79) 96 11/29/17 11:52 Nasal Cannula 5.00 11/29/17 11:00 98.3 97 22 110/68 (82) 96 11/29/17 11:00 97 11/29/17 11:00 97 Nasal Cannula 6.00 -: 11/30/17 0430 11/30/17 0430 Physical Exam General Appearance: Well Developed, Well Nourished, No Acute Distress, Comfortable Throat Throat Exam: Oral Mucosa [place] & Moist Pulmonary Resp Exam: No Distress, Crackles Cardiology CV Exam: Normal Sinus Rhythm, Irregular Gastrointestinal/Abdomen GI Exam: Soft, Non-Tender, Bowel Sounds Present Musculoskeletal MS Exam: Joints Intact, Normal Tone, Unable to Ambulate Integumentary Skin Exam: Clear, Warm, Dry, Intact Extremeties Extremities Exam: No Edema, Pedal Pulses Palpable Neurologic Neuro Exam: Alert, Awake, Oriented, Speech Clear, Moving All Extremities Psychiatric Psych Exam: Appropriate Responses Assessment/Plan Discussed Condition With: Patient Assessment Summary: [place]/Acute Renal Failure, CHF, Hypertension, CKD Stage IV Problem List: (1) Acute worsening of stage 4 chronic kidney disease ICD Codes: N28.9 - Disorder of kidney and ureter, unspecified; N18.4 - Chronic kidney disease, stage 4 (severe) Plan: She has underlying CKD 4, baseline creatinine around 2 from 2012. Imaging shows bilateral renal atrophy; in addition she most likely has CKD secondary to nephrosclerosis. Acute worsening could be due to renal hypoperfusion, or increased renal vein pressure. Renal function is slightly better. Continue current management. Avoid nephrotoxic agents. (2) CHF (congestive heart failure) ICD Codes: I50.9 - Heart failure, unspecified Status: Chronic Plan: s/p NSTEMI. Cardiology following. Appears not to be in overt overload. Lasix being given intermittently. Currently not receiving scheduled doses. Echo reviewed, she has pulmonary hypertension. Avoid IVF. Monitor fluid status. (3) NSTEMI (non-ST elevated myocardial infarction) ICD Codes: I21.4 - Non-ST elevation (NSTEMI) myocardial infarction Status: Acute Plan: Cardiology following. No intervention planned due to pulmonary issues and history of end stage COPD. continue supportive care. (4) COPD (chronic obstructive pulmonary disease) ICD Codes: J44.9 - Chronic obstructive pulmonary disease, unspecified Status: Acute Plan: Off BiPap currently. On oxygen now. Being treated for COPD exacerbation. Monitor respiratory status. Having issues while eating. May have esophageal stricture that is making eating difficult. Consider GI evaluation if it persists. She has required esophageal stretching in the past. Permanent Comment: End-stage Last Edited By: Agus Hart MD on November 27, 2017 11:55 Problem Qualifiers (1) CHF (congestive heart failure): Qualified Codes: I50.32 - Chronic diastolic (congestive) heart failure (2) COPD (chronic obstructive pulmonary disease): Qualified Codes: J44.1 - Chronic obstructive pulmonary disease with (acute) exacerbation Julian Cevallos MD November 30, 2017 08:47
--- NOTE | 2017-11-30 08:50 | PD.CARD.PN ---
Subjective Subjective Remarks Sitting up eating. No angina Objective Medications Current Medications Medications (Trade) Dose Ordered Sig/Leo Route Start Time Stop Time Status Last Admin (NS Flush) 2 ml UNSCH PRN IV FLUSH 11/26/17 02:45 (NS Flush) 2 ml BID IV FLUSH 11/26/17 09:00 11/30/17 08:16 (Tylenol) 650 mg Q6H PRN PO 11/26/17 02:45 ([place] 5-325 Mg) 1 tab Q4H PRN PO 11/26/17 02:45 11/29/17 17:53 (Morphine Inj) 2 mg Q3H PRN IV PUSH 11/26/17 02:45 (Piper-Colace) 1 tab BID PO 11/26/17 09:00 11/29/17 21:14 (Senokot) 17.2 mg Q12H PRN PO 11/26/17 02:45 (Dulcolax Supp) 10 mg DAILY PRN RECTAL 11/26/17 02:45 (Lactulose Liq) 30 ml DAILY PRN PO 11/26/17 02:45 (Aspirin Chew) 81 mg DAILY CHEW 11/26/17 09:00 11/30/17 08:16 (Lipitor) 80 mg HS PO 11/26/17 21:00 Future Hold 11/27/17 21:13 (Nitroglycerin 2% Oint) 0.5 inch Q6HR TOPICAL 11/26/17 18:00 11/30/17 05:28 (Cardizem) 30 mg Q6HR PO 11/26/17 18:00 11/30/17 05:28 (Plavix) 75 mg DAILY PO 11/27/17 09:00 11/30/17 08:16 (Heparin Inj) 5,000 units Q12H SQ 11/27/17 15:00 11/30/17 04:01 Ceftriaxone Sodium 1000 mg/ Sodium Chloride 100 ml @ 200 mls/hr Q24H IV 11/28/17 14:00 11/29/17 14:04 (D50w (Vial) Inj) 50 ml UNSCH PRN IV PUSH 11/28/17 13:00 (Glucagon Inj) 1 mg UNSCH PRN OTHER 11/28/17 13:00 (NovoLIN R SUPPLEMENTAL SCALE) 1 Q4H SQ 11/28/17 13:00 (Pulmicort Respule Neb) 0.25 mg Q12HR NEB NEB 11/28/17 13:00 11/30/17 07:31 (Duoneb Neb) 1 ampule Q4HR NEB NEB 11/28/17 16:00 11/30/17 07:31 (Duoneb Neb) 1 ampule Q2HR NEB PRN NEB 11/28/17 13:15 (Pepcid) 10 mg BID PO 11/29/17 21:00 11/30/17 08:16 (SoluMEDROL INJ) 60 mg Q8HR IV PUSH 11/29/17 22:00 11/30/17 05:29 Vital Signs / I&O Vital Signs Date Time Temp Pulse Resp B/P (MAP) Pulse Ox O2 Delivery O2 Flow Rate FiO2 11/30/17 08:00 94 Nasal Cannula 6.00 11/30/17 08:00 98.1 104 20 125/78 (94) 94 11/30/17 07:31 90 Nasal Cannula 4.50 11/30/17 07:00 94 11/30/17 06:00 98 11/30/17 05:00 95 11/30/17 04:00 98 11/30/17 03:00 98.0 87 22 125/70 (88) 97 11/30/17 03:00 97 11/30/17 03:00 98 Nasal Cannula 6.00 11/30/17 02:00 94 11/30/17 01:00 97 11/30/17 00:00 95 11/29/17 23:00 98.2 94 22 142/76 (98) 98 11/29/17 23:00 97 Nasal Cannula 6.00 11/29/17 23:00 92 11/29/17 21:00 99 11/29/17 20:15 89 Simple Mask 6.00 11/29/17 20:00 98.4 97 22 124/70 (88) 95 11/29/17 20:00 97 11/29/17 19:00 95 11/29/17 19:00 96 Nasal Cannula 6.00 11/29/17 18:19 95 Simple Mask 6.00 11/29/17 15:00 91 Nasal Cannula 6.00 11/29/17 15:00 100 11/29/17 15:00 98.0 91 24 127/55 (79) 96 11/29/17 11:52 Nasal Cannula 5.00 11/29/17 11:00 98.3 97 22 110/68 (82) 96 11/29/17 11:00 97 11/29/17 11:00 97 Nasal Cannula 6.00 I/O 11/29/17 11/29/17 11/29/17 11/30/17 11/30/17 11/30/17 07:00 15:00 23:00 07:00 15:00 23:00 Intake Total 240 ml 900 ml 180 ml Output Total 550 ml 325 ml 450 ml Balance -310 ml 575 ml -270 ml Intake Oral 240 ml 800 ml 180 ml IV Total 100 ml Output Urine Total 550 ml 325 ml 450 ml # Bowel Movements 0 0 0 Physical Exam alert non-toxic appearing Chest-severe decreased BS CV S1S2 RRR no edema Sats drop with activity but not as bad On nasal cannula Laboratory Laboratory Tests Test 11/30/17 04:30 White Blood Count 10.0 TH/MM3 Red Blood Count 3.77 MIL/MM3 Hemoglobin 11.4 GM/DL Hematocrit 34.4 % Mean Corpuscular Volume 91.4 FL Mean Corpuscular Hemoglobin 30.3 PG Mean Corpuscular Hemoglobin Concent 33.2 % Red Cell Distribution Width 15.0 % Platelet Count 190 TH/MM3 Mean Platelet Volume 10.7 FL Neutrophils (%) (Auto) 93.2 % Lymphocytes (%) (Auto) 3.0 % Monocytes (%) (Auto) 3.8 % Eosinophils (%) (Auto) 0.0 % Basophils (%) (Auto) 0.0 % Neutrophils # (Auto) 9.4 TH/MM3 Lymphocytes # (Auto) 0.3 TH/MM3 Monocytes # (Auto) 0.4 TH/MM3 Eosinophils # (Auto) 0.0 TH/MM3 Basophils # (Auto) 0.0 TH/MM3 CBC Comment DIFF FINAL Differential Comment Blood Urea Nitrogen 55 MG/DL Creatinine 2.39 MG/DL Random Glucose 135 MG/DL Total Protein 6.2 GM/DL Albumin 3.0 GM/DL Calcium Level 8.9 MG/DL Alkaline Phosphatase 71 U/L Aspartate Amino Transf (AST/SGOT) 47 U/L Alanine Aminotransferase (ALT/SGPT) 59 U/L Total Bilirubin 0.4 MG/DL Sodium Level 140 MEQ/L Potassium Level 4.3 MEQ/L Chloride Level 100 MEQ/L Carbon Dioxide Level 31.0 MEQ/L Anion Gap 9 MEQ/L Estimat Glomerular Filtration Rate 19 ML/MIN Assessment and Plan Problem List: (1) COPD (chronic obstructive pulmonary disease) ICD Codes: J44.9 - Chronic obstructive pulmonary disease, unspecified Status: Acute Permanent Comment: End-stage Last Edited By: Agus Hart MD on November 27, 2017 11:55 (2) NSTEMI (non-ST elevated myocardial infarction) ICD Codes: I21.4 - Non-ST elevation (NSTEMI) myocardial infarction Status: Acute Plan: medical therapy (3) Renal insufficiency ICD Codes: N28.9 - Disorder of kidney and ureter, unspecified Status: Acute Assessment and Plan I am going out of town and I am signing off. [facility] please call if questions. Problem Qualifiers (1) COPD (chronic obstructive pulmonary disease): Qualified Codes: J44.1 - Chronic obstructive pulmonary disease with (acute) exacerbation Agus Hart MD November 30, 2017 08:50
--- NOTE | 2017-11-30 10:34 | HHI.CCPN ---
Subjective Remarks/Hospital Course The patient is an 82-year-old female with past medical history of coronary artery disease, COPD on 4 liters oxygen at home continuously, hypertension and hyperlipidemia, who was admitted to [facility] on 11/26/2017 under hospitalist service for non-ST elevation AR and COPD exacerbation. She had elevated troponin of 6.28 on arrival. In addition, the patient has renal dysfunction with a creatinine of 2.94 on 11/25/2017, which improved slightly to 2.45 today. During her hospital course, she was seen by Dr. Hart from Cardiology service and Dr. Chan from pulmonary. A chest x-ray on arrival showed no evidence of any acute cardiopulmonary disease. She was treated with bronchodilators, steroids for her COPD. The patient had an echocardiogram on 11/26/2017, which showed an EF of 55%, moderate tricuspid regurgitation and mild pulmonary hypertension with a PA pressure of 53 mmHg. She was placed on BiPAP earlier today and ABG was performed on BiPAP 04/20 with 75% FIO2, which showed a pH of 7.33, CO2 54, PaO2 57, bicarbonate 28 and saturation of 85%. Critical care medicine was consulted for critical care management. The patient desaturates easily with movements, per nursing staff. When seen, she remained on the BiPAP with a saturation of 90%. Blood pressure 110/62 with a pulse of 100. 11/29 Patient is off BIPAP awake and alert on 6L oxygen. 11/30 No events overnight remains on 6L oxygen. Objective Vital Signs Date Time Temp Pulse Resp B/P (MAP) Pulse Ox O2 Delivery O2 Flow Rate FiO2 11/30/17 08:00 94 Nasal Cannula 6.00 11/30/17 08:00 98.1 104 20 125/78 (94) 11/28/17 15:30 80 Intake and Output 11/30/17 11/30/17 12/01/17 08:00 16:00 00:00 Intake Total 180 ml Output Total 450 ml Balance -270 ml Result Diagram: 11/30/17 0430 11/30/17 0430 Other Results Laboratory Tests Test 11/30/17 04:30 White Blood Count 10.0 TH/MM3 Red Blood Count 3.77 MIL/MM3 Hemoglobin 11.4 GM/DL Hematocrit 34.4 % Mean Corpuscular Volume 91.4 FL Mean Corpuscular Hemoglobin 30.3 PG Mean Corpuscular Hemoglobin Concent 33.2 % Red Cell Distribution Width 15.0 % Platelet Count 190 TH/MM3 Mean Platelet Volume 10.7 FL Neutrophils (%) (Auto) 93.2 % Lymphocytes (%) (Auto) 3.0 % Monocytes (%) (Auto) 3.8 % Eosinophils (%) (Auto) 0.0 % Basophils (%) (Auto) 0.0 % Neutrophils # (Auto) 9.4 TH/MM3 Lymphocytes # (Auto) 0.3 TH/MM3 Monocytes # (Auto) 0.4 TH/MM3 Eosinophils # (Auto) 0.0 TH/MM3 Basophils # (Auto) 0.0 TH/MM3 CBC Comment DIFF FINAL Differential Comment Blood Urea Nitrogen 55 MG/DL Creatinine 2.39 MG/DL Random Glucose 135 MG/DL Total Protein 6.2 GM/DL Albumin 3.0 GM/DL Calcium Level 8.9 MG/DL Alkaline Phosphatase 71 U/L Aspartate Amino Transf (AST/SGOT) 47 U/L Alanine Aminotransferase (ALT/SGPT) 59 U/L Total Bilirubin 0.4 MG/DL Sodium Level 140 MEQ/L Potassium Level 4.3 MEQ/L Chloride Level 100 MEQ/L Carbon Dioxide Level 31.0 MEQ/L Anion Gap 9 MEQ/L Estimat Glomerular Filtration Rate 19 ML/MIN Imaging Last Impressions Chest X-Ray 11/28/17 0000 Signed Impressions: Service Date/Time: Tuesday, November 28, 2017 12:33 - CONCLUSION: 1. Bilateral effusions and interstitial prominence suggesting congestive failure. The effusions appear minimally larger than previous seen on 11/25/17. Deven Caceres MD Abdomen Ultrasound 11/28/17 0000 Signed Impressions: Service Date/Time: Tuesday, November 28, 2017 13:57 - CONCLUSION: Abdominal aortic aneurysm. Mild increased echotexture of the renal cortices can be seen with medical renal disease. Mildly prominent common bile duct in this patient who is status post cholecystectomy. There is also mild prominence of the intrahepatic biliary tree. Stefano Zepeda MD Objective Remarks GENERAL: Patient is 82 yo lyin gin bed in [facility]. Looks comfortable. SKIN: Warm and dry. HEAD: Normocephalic. EYES: No scleral icterus. No injection or drainage. NECK: Supple, trachea midline. No JVD or lymphadenopathy. CARDIOVASCULAR: Regular rate and rhythm without murmurs, gallops, or rubs. RESPIRATORY: Breath sounds equal bilaterally. Diminished GASTROINTESTINAL: Abdomen soft, non-tender, nondistended. MUSCULOSKELETAL: No cyanosis, or edema. Neuro: Awake and alert A/P Assessment and Plan 1. Acute hypoxemic and hypercapnic respiratory failure. 2. COPD exac on 4 liters home oxygen. 3. Acute on chronic kidney disease. 4. Non-ST elevation myocardial infarction. 5. Elevated liver enzymes. 6. Hypertension. 7. Coronary artery disease. 8. Hyperlipidemia. Plan Neuro: Awake and alert. Monitor neuro status and avoid any sedatives. Pulm: Continue with oxygen and maintain sats >92%. Bronchodilators ( DuoNeb, Pulmicort) Solu-Medrol to 60 mg IV q. 8 hours. NIPPV PRN for resp distress. Pulm is following- Dr. Chan Check CXR CV: Monitor HR and BP and maintain MAP> 65 mmHg. Continue with Cardizem 30 mg q. 6 hours, Plavix 75 mg daily, nitroglycerin 0.5 topical q. 6 hours. Cards is following. Echo from 11/26/2017, showed an EF of 55%, moderate pulmonary hypertension with a PA pressure 53 mmHg and moderate TR. Lipitor held for elevated LFT : Monitor renal function, I's and O's and avoid nephrotoxins Cr: 2.39 from 2.51 UOP:450ml overnight. Renal is following- Dr. Cevallos abdomen: Abdominal aortic aneurysm 2.9x 3.7x3.9 cm. medical renal disease. Mildly prominent common bile duct in this patient who is status post cholecystectomy. Mild prominence of the intrahepatic biliary tree. GI: on Pepcid 10 mg IV q. 12 hours for GI prophylaxis. Monitor LFT, Hepatitis profile is negative ID: Continue Rocephin for COPD exac Monitor for signs of infection( fever and WBC). Heme: Monitor CBC. Endo: SSI with Accu-Cheks for glycemic GI prophylaxis with Pepcid and DVT prophylaxis with SCDs and heparin subQ. Palliative care is following Will sign off and transfer care to [facility] Level 2 Zoe Tatum MD November 30, 2017 10:34
--- NOTE | 2017-11-30 11:04 | RADRPT ---
EXAM DATE/TIME: 11/30/2017 10:46 [place] COMPARISON: CHEST SINGLE AP, November 28, 2017, 12:33. INDICATIONS : Short of breath MEDICAL HISTORY : Chronic obstructive pulmonary disease. Congestive heart failure. Myocardial infarction. renal hina culi SURGICAL HISTORY : Cholecystectomy. ENCOUNTER: Subsequent ACUITY: 4 - 6 days PAIN SCORE: 0/10 LOCATION: Bilateral chest FINDINGS: There has been mild improvement in the previously noted pulmonary edema. There still continues to be some pulmonary venous congestion. No focal areas of parenchymal consolidation. Small bilateral effusi ons. The heart size is stable. Stable bilateral pulmonary arteries. The bony structures are stable. CONCLUSION: 1. There has been mild improvement in the pulmonary edema compared to the prior study. There is some mild pulmonary venous congestion. Dima Blake MD on November 30, 2017 at 11:00 Board Certified Radiologist. This report was verified electronically.
--- NOTE | 2017-11-30 13:29 | HHI.HCPN ---
Reason for visit a. To assist with evaluation and management of symptoms including: dyspnea, debility, pain, dysphagia b. To assist medical decision maker(s) with: better understanding of current medical conditions; weighing benefits/burdens of medical treatment options; making medical treatment decisions. . Subjective/Interval History Follow up visit on 82 year old female admitted with NSTEMI and COPD exacerbation. Cardiology recommending conservative medical management given patient's advance lung disease. Patient was initially requiring BiPAP but has been weaned to 6L oxygen via nasal cannula. Oxygen saturations in the low 90s, dropping into the high 80s with conversation. Patient endorses dyspnea with minimal exertion. Patient is sitting upright in the recliner; complaining of fatigue asking to go back to bed after only a short period of time. Nephrology following patient with acute on chronic renal disease. Patient has underlying CKD, stage 4 with a baseline creatinine of 2 in 2011. Renal functioning slightly improves from yesterday. BUN 55; Creatinine 2.39; GFR 19 today 11/30/17. US abdomen on 11/28/17 showed abdominal aortic aneurysm measuring 2.9 x 3.7 x 3.9 cm. Mild increased echotexture of the renal cortices can be seen with medical renal disease. Mildly prominent common bile duct in this patient who is status post cholecystectomy. There is also mild prominence in the intrahepatic biliary tree. Patient having difficulty eating stating she was "choking" on her pancakes this morning. Patient has a history is esophageal stricture. Consider GI evaluation. Met with the patient to discuss medical treatment goals; hospice services was introduced. Palliative later met with the patient's family at bedside; the family does not believe the patient will be able to tolerate rehabilitation, nor do they believe she will actively participate. After discussing aggressive versus comfort focused goals with the family, hospice was consulted. Patient was agreeable. Plan is to optimize current hospitalization and consider transitioning to hospice at discharge or if the patient fails rehab. Discussed current medical treatment goals with RN (Sonja) and Dr. Victoria. Hospice will likely meet with patient/family some time tomorrow 11/30/17. . Family/friend interactions See interval history . Advance Directives Living Will: Copy in medical record Health Care Surrogate: Copy in medical record Advance Directive Specifics Date completed: Nov, 2017 . Health Care Surrogate(s): Patient's spouse (Frank) is designated as the primary healthcare surrogate decision maker. Daughter (Sharon) would be the first alternate healthcare surrogate decision-maker, and son (Simone) would be the second alternate decision -maker. . Documented care wishes: Living will completed 11/28/17 states the patient is agreeable to short term intubation and mechanical ventilation but would not want prolonged ventilatory support. Patient would NOT agree to tracheostomy or PEG tube placement but would instead want to transition to comfort focused care at that time. The patient was unable to sign the document secondary to weakness and dyspnea ( patient becomes hypoxic with any care); conversations was witness by 3 persons. Daughter states these documented wished are consistent with conversations she has had with her mother previously regarding medical treatment goals. Copies of document are available in the patient's paper chart and have been scanned into the EMR. . Objective Vital Signs Date Time Temp Pulse Resp B/P (MAP) Pulse Ox O2 Delivery O2 Flow Rate FiO2 11/30/17 11:39 94 Nasal Cannula 6.00 11/30/17 11:38 98.4 100 22 120/63 (82) 97 11/30/17 11:00 95 11/30/17 08:00 94 Nasal Cannula 6.00 11/30/17 08:00 98.1 104 20 125/78 (94) 94 11/30/17 07:31 90 Nasal Cannula 4.50 11/30/17 07:00 94 11/30/17 06:00 98 11/30/17 05:00 95 11/30/17 04:00 98 11/30/17 03:00 98.0 87 22 125/70 (88) 97 11/30/17 03:00 97 11/30/17 03:00 98 Nasal Cannula 6.00 11/30/17 02:00 94 11/30/17 01:00 97 11/30/17 00:00 95 11/29/17 23:00 98.2 94 22 142/76 (98) 98 11/29/17 23:00 97 Nasal Cannula 6.00 11/29/17 23:00 92 11/29/17 21:00 99 11/29/17 20:15 89 Simple Mask 6.00 11/29/17 20:00 98.4 97 22 124/70 (88) 95 11/29/17 20:00 97 11/29/17 19:00 95 11/29/17 19:00 96 Nasal Cannula 6.00 11/29/17 18:19 95 Simple Mask 6.00 11/29/17 15:00 91 Nasal Cannula 6.00 11/29/17 15:00 100 11/29/17 15:00 98.0 91 24 127/55 (79) 96 Intake & Output 11/30/17 11/30/17 07:00 19:00 Intake Total 180 ml Output Total 450 ml Balance -270 ml Intake Oral 180 ml Output Urine Total 450 ml # Bowel Movements 0 . Physical Exam CONSTITUTIONAL/GENERAL: This is a pale, elderly female patient in no acute distress TUBES/LINES/DRAINS: Pure wick catheter, nasal cannula, PIV SKIN: No jaundice, rashes, or lesions. Ecchymoses on upper extremities. No wounds seen anteriorly. Skin is thin, fragile; skin temperature appropriate. Not diaphoretic. HEAD: Atraumatic. Normocephalic. EYES: Pupils equal and round and reactive. Extraocular motions intact. No scleral icterus. No injection or drainage. Fundi not examined. ENT: Hearing grossly normal. Nose without bleeding or purulent drainage. NECK: Trachea midline. Supple, nontender. No palpable thyroid enlargement or nodularity. CARDIOVASCULAR: Regular rate. Intermittently tachycardic without no murmurs, gallops, or rubs. No JVD. Peripheral pulses symmetric. RESPIRATORY/CHEST: Oxygen saturations stable on 6L via nc. Breath sounds diminished bilaterally. No wheezes, rales, or rhonchi. GASTROINTESTINAL: Abdomen soft, non-tender, nondistended. No hepato-splenomegaly , or palpable masses. No guarding. Bowel sounds present. GENITOURINARY: Without palpable bladder distension. Pure wick catheter in place. MUSCULOSKELETAL: Extremities without clubbing or cyanosis. 1+ edema in BLE. LYMPHATICS: No palpable cervical or supraclavicular adenopathy. NEUROLOGICAL: Awake and alert. Follows commands. Cognitively sharp. Moves all extremities. PSYCHIATRIC: No obvious anxiety/depression. No apparent hallucinations or other psychotic thought process. . Diagnostic Tests Laboratory Laboratory Tests Test 11/28/17 03:30 11/28/17 11:51 11/28/17 13:27 11/28/17 14:53 Blood Urea Nitrogen 43 MG/DL (7-18) 45 MG/DL (7-18) Creatinine 2.45 MG/DL (0.50-1.00) 2.39 MG/DL (0.50-1.00) Random Glucose 122 MG/DL (74-106) 127 MG/DL (74-106) Calcium Level 8.5 MG/DL (8.5-10.1) 8.8 MG/DL (8.5-10.1) Sodium Level 136 MEQ/L (136-145) 136 MEQ/L (136-145) Potassium Level 4.8 MEQ/L (3.5-5.1) 4.8 MEQ/L (3.5-5.1) Chloride Level 99 MEQ/L (98-107) 99 MEQ/L (98-107) Carbon Dioxide Level 26.9 MEQ/L (21.0-32.0) 28.7 MEQ/L (21.0-32.0) Anion Gap 10 MEQ/L (5-15) 8 MEQ/L (5-15) Estimat Glomerular Filtration Rate 19 ML/MIN (>89) 19 ML/MIN (>89) Blood Gas Puncture Site RT RADIAL Blood Gas Patient Temperature 98.6 Blood Gas HCO3 28 mmol/L (22-26) Blood Gas Base Excess 2.4 mmol/L (-2-2) Blood Gas Oxygen Saturation 85 % (90-100) Arterial Blood pH 7.33 (7.380-7.420) Arterial Blood Partial Pressure CO2 54 mmHg (38-42) Arterial Blood Partial Pressure O2 57 mmHg (61-120) Arterial Blood Oxygen Content 14.0 Vol % (12.0-20.0) Arterial Blood Carboxyhemoglobin 0.7 % (0-4) Arterial Blood Methemoglobin 1.4 % (0-2) Blood Gas Hemoglobin 11.7 G/DL (12.0-16.0) Oxygen Delivery Device BIPAP Blood Gas Ventilator Setting IPAP10/EPAP5 Blood Gas Inspired Oxygen 75 % White Blood Count 9.6 TH/MM3 (4.0-11.0) Red Blood Count 3.89 MIL/MM3 (4.00-5.30) Hemoglobin 11.8 GM/DL (11.6-15.3) Hematocrit 35.4 % (35.0-46.0) Mean Corpuscular Volume 91.2 FL (80.0-100.0) Mean Corpuscular Hemoglobin 30.3 PG (27.0-34.0) Mean Corpuscular Hemoglobin Concent 33.3 % (32.0-36.0) Red Cell Distribution Width 14.8 % (11.6-17.2) Platelet Count 221 TH/MM3 (150-450) Mean Platelet Volume 11.0 FL (7.0-11.0) Neutrophils (%) (Auto) 93.1 % (16.0-70.0) Lymphocytes (%) (Auto) 4.0 % (9.0-44.0) Monocytes (%) (Auto) 2.8 % (0.0-8.0) Eosinophils (%) (Auto) 0.0 % (0.0-4.0) Basophils (%) (Auto) 0.1 % (0.0-2.0) Neutrophils # (Auto) 8.9 TH/MM3 (1.8-7.7) Lymphocytes # (Auto) 0.4 TH/MM3 (1.0-4.8) Monocytes # (Auto) 0.3 TH/MM3 (0-0.9) Eosinophils # (Auto) 0.0 TH/MM3 (0-0.4) Basophils # (Auto) 0.0 TH/MM3 (0-0.2) CBC Comment DIFF FINAL Differential Comment Total Protein 6.7 GM/DL (6.4-8.2) Albumin 3.2 GM/DL (3.4-5.0) Alkaline Phosphatase 94 U/L (45-117) Aspartate Amino Transf (AST/SGOT) 83 U/L (15-37) Alanine Aminotransferase (ALT/SGPT) 78 U/L (10-53) Total Bilirubin 0.5 MG/DL (0.2-1.0) B-Type Natriuretic Peptide 960 PG/ML (0-100) Hepatitis A IgM Antibody NONREACTIVE (NONREACTIVE) Hepatitis B Surface Antigen NONREACTIVE (NONREACTIVE) Hepatitis B Core IgM Antibody NONREACTIVE (NONREACTIVE) Hepatitis C IgG Antibody NONREACTIVE (NONREACTIVE) Urine Color LIGHT-YELLOW (YELLW/STRAW) Urine Turbidity CLEAR (CLEAR) Urine pH 5.0 (5.0-8.5) Urine Specific [place] 1.009 (1.002-1.035) Urine Protein TRACE mg/dL (NEG-TRACE) Urine Glucose (UA) NEG mg/dL (NEG) Urine Ketones NEG mg/dL (NEG) Urine Occult Blood NEG (NEG) Urine Nitrite NEG (NEG) Urine Bilirubin NEG (NEG) Urine Urobilinogen LESS THAN 2.0 MG/DL (LESS Urine Leukocyte Esterase NEG (NEG) Urine WBC LESS THAN 1 /hpf (0-5) Urine Hyaline Casts 3 /lpf (RARE) Microscopic Urinalysis Comment CATH-CULT NOT IND Test 11/28/17 16:35 11/28/17 22:44 11/29/17 04:20 11/30/17 04:30 Blood Gas Puncture Site RT RADIAL RT RADIAL Blood Gas Patient Temperature 98.6 98.6 Blood Gas HCO3 28 mmol/L (22-26) 28 mmol/L (22-26) Blood Gas Base Excess 2.3 mmol/L (-2-2) 3.0 mmol/L (-2-2) Blood Gas Oxygen Saturation 91 % (90-100) 94 % (90-100) Arterial Blood pH 7.34 (7.380-7.420) 7.36 (7.380-7.420) Arterial Blood Partial Pressure CO2 53 mmHg (38-42) 50 mmHg (38-42) Arterial Blood Partial Pressure O2 72 mmHg (61-120) 83 mmHg (61-120) Arterial Blood Oxygen Content 15.0 Vol % (12.0-20.0) 15.1 Vol % (12.0-20.0) Arterial Blood Carboxyhemoglobin 0.7 % (0-4) 0.8 % (0-4) Arterial Blood Methemoglobin 1.3 % (0-2) 1.4 % (0-2) Blood Gas Hemoglobin 11.6 G/DL (12.0-16.0) 11.4 G/DL (12.0-16.0) Oxygen Delivery Device BIPAP SIMPLE MASK Blood Gas Ventilator Setting IPAP15/EPAP5 Blood Gas Inspired Oxygen 70 % Blood Gas Liter Flow 10 L/M White Blood Count 10.0 TH/MM3 (4.0-11.0) 10.0 TH/MM3 (4.0-11.0) Red Blood Count 3.92 MIL/MM3 (4.00-5.30) 3.77 MIL/MM3 (4.00-5.30) Hemoglobin 11.9 GM/DL (11.6-15.3) 11.4 GM/DL (11.6-15.3) Hematocrit 36.1 % (35.0-46.0) 34.4 % (35.0-46.0) Mean Corpuscular Volume 92.1 FL (80.0-100.0) 91.4 FL (80.0-100.0) Mean Corpuscular Hemoglobin 30.3 PG (27.0-34.0) 30.3 PG (27.0-34.0) Mean Corpuscular Hemoglobin Concent 32.9 % (32.0-36.0) 33.2 % (32.0-36.0) Red Cell Distribution Width 14.5 % (11.6-17.2) 15.0 % (11.6-17.2) Platelet Count 200 TH/MM3 (150-450) 190 TH/MM3 (150-450) Mean Platelet Volume 10.7 FL (7.0-11.0) 10.7 FL (7.0-11.0) Neutrophils (%) (Auto) 93.8 % (16.0-70.0) 93.2 % (16.0-70.0) Lymphocytes (%) (Auto) 2.9 % (9.0-44.0) 3.0 % (9.0-44.0) Monocytes (%) (Auto) 3.1 % (0.0-8.0) 3.8 % (0.0-8.0) Eosinophils (%) (Auto) 0.0 % (0.0-4.0) 0.0 % (0.0-4.0) Basophils (%) (Auto) 0.2 % (0.0-2.0) 0.0 % (0.0-2.0) Neutrophils # (Auto) 9.4 TH/MM3 (1.8-7.7) 9.4 TH/MM3 (1.8-7.7) Lymphocytes # (Auto) 0.3 TH/MM3 (1.0-4.8) 0.3 TH/MM3 (1.0-4.8) Monocytes # (Auto) 0.3 TH/MM3 (0-0.9) 0.4 TH/MM3 (0-0.9) Eosinophils # (Auto) 0.0 TH/MM3 (0-0.4) 0.0 TH/MM3 (0-0.4) Basophils # (Auto) 0.0 TH/MM3 (0-0.2) 0.0 TH/MM3 (0-0.2) CBC Comment DIFF FINAL DIFF FINAL Differential Comment Blood Urea Nitrogen 50 MG/DL (7-18) 55 MG/DL (7-18) Creatinine 2.51 MG/DL (0.50-1.00) 2.39 MG/DL (0.50-1.00) Random Glucose 132 MG/DL (74-106) 135 MG/DL (74-106) Total Protein 6.5 GM/DL (6.4-8.2) 6.2 GM/DL (6.4-8.2) Albumin 3.2 GM/DL (3.4-5.0) 3.0 GM/DL (3.4-5.0) Calcium Level 9.2 MG/DL (8.5-10.1) 8.9 MG/DL (8.5-10.1) Magnesium Level 2.1 MG/DL (1.5-2.5) Alkaline Phosphatase 80 U/L (45-117) 71 U/L (45-117) Aspartate Amino Transf (AST/SGOT) 68 U/L (15-37) 47 U/L (15-37) Alanine Aminotransferase (ALT/SGPT) 73 U/L (10-53) 59 U/L (10-53) Total Bilirubin 0.5 MG/DL (0.2-1.0) 0.4 MG/DL (0.2-1.0) Sodium Level 139 MEQ/L (136-145) 140 MEQ/L (136-145) Potassium Level 4.4 MEQ/L (3.5-5.1) 4.3 MEQ/L (3.5-5.1) Chloride Level 99 MEQ/L (98-107) 100 MEQ/L (98-107) Carbon Dioxide Level 29.2 MEQ/L (21.0-32.0) 31.0 MEQ/L (21.0-32.0) Anion Gap 11 MEQ/L (5-15) 9 MEQ/L (5-15) Estimat Glomerular Filtration Rate 18 ML/MIN (>89) 19 ML/MIN (>89) . Result Diagram: 11/30/17 0430 11/30/17 0430 Imaging Last 72 hours Impressions Chest X-Ray 11/30/17 0000 Signed Impressions: Service Date/Time: November 10:46 - CONCLUSION: 1. There has been mild improvement in the pulmonary edema compared to the prior study. There is some mild pulmonary venous congestion. Dima Blake MD Chest X-Ray 11/28/17 0000 Signed Impressions: Service Date/Time: Tuesday, November 28, 2017 12:33 - CONCLUSION: 1. Bilateral effusions and interstitial prominence suggesting congestive failure. The effusions appear minimally larger than previous seen on 11/25/17. Deven Caceres MD Abdomen Ultrasound 11/28/17 0000 Signed Impressions: Service Date/Time: Tuesday, November 28, 2017 13:57 - CONCLUSION: Abdominal aortic aneurysm. Mild increased echotexture of the renal cortices can be seen with medical renal disease. Mildly prominent common bile duct in this patient who is status post cholecystectomy. There is also mild prominence of the intrahepatic biliary tree. Stefano Zepeda MD . Assessment and Plan Disease Oriented Problem List: (1) Hypertension (2) CHELSEA (obstructive sleep apnea) (3) COPD (chronic obstructive pulmonary disease) (4) CHF (congestive heart failure) (5) CKD (chronic kidney disease), stage IV (6) NSTEMI (non-ST elevated myocardial infarction) Symptom Scale: (1) Debility 0-10 Scale: Unable to quantify (2) Dyspnea 0-10 Scale: Unable to quantify (3) Pain 0-10 Scale: Unable to quantify (4) Dysphagia 0-10 Scale: Unable to quantify Pertinent Non-Medical Issues Psychosocial: Patient is originally from [place]. She has 4 children (Sharon, Agnes , Simone and Jeremy). Simone and Jeremy lives in [place]. Sharon lives locally, and Agnes lives in [place]. Patient has been to her current (Frank) for 48 years. Frank was the patient's primary caregiver but he is currently receiving rehab and likely will be unable to care for her in the future. Family has been considering looking into assisted living facilities. Spiritual: Jewish bruce Legal: Patient currently has insight and judgment related to her medical conditions. In the event that she loses capacity for medical decision-making, the patient's spouse (Frank) is designated as the primary healthcare surrogate decision maker. Daughter (Sharon) would be the first alternate healthcare surrogate decision-maker, and son (Simone) would be the second alternate decision -maker. Ethical issues impacting care: No known ethical issues impacting care. . Important Contacts Frank Celis, : [phone] Sharon Queen/Jose J, daughter: [phone] or [phone] (home) Simone Chand, son: [phone] . Prognosis Patient is an 82 year old female with extensive cardiopulmonary disease s/p NSTEMI. Unfortunately, she is not a candidate for invasive cardiac treatment due to the severity of her lung disease. Patient is significantly disabled and is high risk for ongoing decline and setbacks. Patient would be hospice appropriate if/when goals become comfort oriented. . Code Status: Full Code Plan * FULL CODE * Decision-making: Patient currently has insight and judgment related to her medical conditions. In the event that she loses capacity for medical decision- making,the patient's spouse (Frank) is designated as the primary healthcare surrogate decision maker. Daughter (Sharon) would be the first alternate healthcare surrogate decision-maker, and son (Simone) would be the second alternate decision-maker. * Palliative care met with the patient who indicated she would consent to short- term intubation and mechanical ventilation, but she would not want prolonged ventilator support. She indicated she would NOT be agreeable to tracheostomy or PEG tube placement but would instead want to transition to comfort focused care at that time. The patient has had similar Dr. Reed and Dr. Anderson. Daughter (Sharon) states my conversation with the patient is consistent with conversation she has had with the patient previously. * Met with the patient to discuss medical treatment goals; hospice services was introduced. Palliative later met with the patient's family at bedside; the family does not believe the patient will be able to tolerate rehabilitation, nor do they believe she will actively participate. After discussing aggressive versus comfort focused goals with the family, hospice was consulted. Patient was agreeable. Plan is to optimize current hospitalization and consider transitioning to hospice at discharge or if the patient fails rehab. Hospice will likely meet with patient/family some time tomorrow 11/30/17. * Discussed current medical treatment goals with RN Jes) and Dr. Victoria. * Symptom management: == Dyspnea: Patient has a history of severe lung disease and is oxygen dependent at home. Was weaned of BiPAP; oxygen saturations in the low to mid 90s on 6L O2 via nasal cannula. Nursing reports patient continues to desaturate with minimal exertion; desats into the high 80 with conversation. On Solu-Medrol, scheduled and PRN DuoNebs and Pulmicort. == Dysphagia: Patient having difficulty eating stating she was "choking" on her pancakes this morning. Patient has a history is esophageal stricture. Consider GI evaluation. == Debility: Daughter states the patient's activity level is compromised secondary to dyspnea with minimal exertion. She reports her mother becomes SOB when walking short distance from the family room to the kitchen. Patient is able to dress herself but then needs to rest for nearly an hour. On the days the patient showers, "she'd done for the day " per family report. They are considering placement upon discharge because they do not feel the patient and her spouse can live alone any longer. == Pain: Patient c/o acute chest pain on admission; pain has now resolved. Receiving nitroglycerin 2% ointment every 6 hours topically. PRN acetaminophen, Lamar and IV morphine are ordered for breakthrough pain. 24 hour PRN Requirements = Lamar 5-325mg PO x 2. Palliative care will monitor PRN requirements and make recommendations as needed. * Palliative care will continue to follow this patient throughout her hospitalization to establish stress, assist with symptom management and clarification of medical treatment goals. . Attestation To help prompt me to consider important information that might be impacting today's encounter and assessment, information from prior notes written by myself or my colleagues may have been "brought forward" into today's note. My signature on this note, however, is an attestation that I personally performed the exam, history, and/or decision-making noted today, and, unless otherwise indicated, the interactions with patient, family, and staff as well as the review of records all occurred today. I also attest that the listed assessment and stated plan reflect my best clinical judgment today based on the combination of historical information, prior notes, and today's exam/ interactions. When time spent is documented, it refers only to time spent today by the signer, or if indicated, combined time spent today by collaborating physician/nurse practitioner. . Debra Jorge November 30, 2017 13:29
[2017-11-30] MEDS: cefTRIAXone INJ 1,000 MG in SODIUM CHLORIDE 0.9% INJ 100 ML IV SCH (14:32)
[2017-11-30] MEDS: ACETAMINOPHEN/HYDROcodone 325 MG/5 MG TAB PO PRN (15:36)
--- NOTE | 2017-11-30 19:04 | HHI.PR ---
Subjective Remarks 82 YO WF, Frail, Severe COPD with hypoxia, Ch RF Has NSTMI Weaned to Simple mask No CP Feels little better today came to see her. Objective Vital Signs Vital Signs Date Time Temp Pulse Resp B/P (MAP) Pulse Ox O2 Delivery O2 Flow Rate FiO2 11/30/17 16:36 20 11/30/17 15:50 92 Nasal Cannula 6.00 11/30/17 15:48 98.0 94 22 116/66 (83) 97 11/30/17 15:00 94 11/30/17 11:39 94 Nasal Cannula 6.00 11/30/17 11:38 98.4 100 22 120/63 (82) 97 11/30/17 11:00 95 11/30/17 08:00 94 Nasal Cannula 6.00 11/30/17 08:00 98.1 104 20 125/78 (94) 94 11/30/17 07:31 90 Nasal Cannula 4.50 11/30/17 07:00 94 11/30/17 06:00 98 11/30/17 05:00 95 11/30/17 04:00 98 11/30/17 03:00 98.0 87 22 125/70 (88) 97 11/30/17 03:00 97 11/30/17 03:00 98 Nasal Cannula 6.00 11/30/17 02:00 94 11/30/17 01:00 97 11/30/17 00:00 95 11/29/17 23:00 98.2 94 22 142/76 (98) 98 11/29/17 23:00 97 Nasal Cannula 6.00 11/29/17 23:00 92 11/29/17 21:00 99 11/29/17 20:15 89 Simple Mask 6.00 11/29/17 20:00 98.4 97 22 124/70 (88) 95 11/29/17 20:00 97 I/O 11/29/17 11/29/17 11/29/17 11/30/17 11/30/17 11/30/17 07:00 15:00 23:00 07:00 15:00 23:00 Intake Total 240 ml 900 ml 180 ml 1000 ml Output Total 550 ml 325 ml 450 ml 575 ml Balance -310 ml 575 ml -270 ml 425 ml Intake Oral 240 ml 800 ml 180 ml 1000 ml IV Total 100 ml Output Urine Total 550 ml 325 ml 450 ml 575 ml # Bowel Movements 0 0 0 0 Result Diagram: 11/30/1742911/30/17429 Objective Remarks GENERAL: Frail elderly WF, mild sob, weak SKIN: Warm and dry. HEAD: Normocephalic. EYES: No scleral icterus. No injection or drainage. NECK: Supple, trachea midline. No JVD or lymphadenopathy. CARDIOVASCULAR: Regular rate and rhythm without murmurs, gallops, or rubs. RESPIRATORY: Breath sounds equal bilaterally. No accessory muscle use. GASTROINTESTINAL: Abdomen soft, non-tender, nondistended. MUSCULOSKELETAL: No cyanosis, or edema. BACK: Nontender without obvious deformity. No CVA tenderness. A/P Assessment and Plan Severe COPD Hypoxia Ch Resp failure NSTMI CHF PLAN: Aerosol nebs IV Solumedrol Plavix 75 mg daily Dw Pt DW . Considering hospice. Carlos Chan MD November 30, 2017 19:04
[2017-12-01] VITALS (14 sets, daily range): BP systolic 119–161; BP diastolic 57–88; PULSE 94–114; RESP 16–22; TEMP 97.6–98.4; O2SAT 96–99
[2017-12-01] MEDS: DILTIAZEM HCL 30 MG TAB PO SCH ×4 (00:24→17:37)
[2017-12-01] MEDS: NITROGLYCERIN 2% OINT 1 GM PACKET TOPICAL SCH ×4 (00:25→17:38)
[2017-12-01] MEDS: INSULIN NovoLIN REGULAR SUPPLEMENTAL SCALE SQ SCH ×6 (00:32→21:00)
[2017-12-01] MEDS: RESP: ALBUTEROL 2.5 MG/IPRATROPIUM 0.5 MG NEB (SCH) NEB ×7 (01:27→23:33)
[2017-12-01] MEDS: HEPARIN SODIUM - SQ 10,000 UNITS/ML VIAL SQ SCH ×2 (02:39→14:03)
[2017-12-01] MEDS: ACETAMINOPHEN/HYDROcodone 325 MG/5 MG TAB PO PRN ×2 (04:13→21:55)
[2017-12-01 05:15] LABS: AUTOMATED NEUTROPHIL # 9.1 TH/MM3 (1.8-7.7); BASOPHIL % 0.1 % (0.0-2.0); EOSINOPHIL % 0.1 % (0.0-4.0); HEMATOCRIT 35.5 % (35.0-46.0); HEMOGLOBIN 11.8 GM/DL (11.6-15.3); LYMPH % 2.8 % (9.0-44.0); LYMPHOCYTE # 0.3 TH/MM3 (1.0-4.8); MEAN CELL VOLUME 90.5 FL (80.0-100.0); MEAN CORPUSCULAR HEMOGLOBIN 30.2 PG (27.0-34.0); MEAN CORPUSCULAR HGB CONC 33.3 % (32.0-36.0); MEAN PLATELET VOLUME 10.6 FL (7.0-11.0); MONO % 3.5 % (0.0-8.0); MONOCYTE # 0.3 TH/MM3 (0-0.9); NEUT % 93.5 % (16.0-70.0); PLATELET COUNT 206 TH/MM3 (150-450); RED BLOOD COUNT 3.92 MIL/MM3 (4.00-5.30); RED CELL DISTRIBUTION WIDTH 14.9 % (11.6-17.2); WHITE BLOOD COUNT 9.8 TH/MM3 (4.0-11.0)
[2017-12-01 05:37] LABS: ALBUMIN 3.1 GM/DL (3.4-5.0); ALT (GPT) 52 U/L (10-53); AST (GOT) 32 U/L (15-37); BICARBONATE 28.7 MEQ/L (21.0-32.0); CALCIUM 9.1 MG/DL (8.5-10.1); CHLORIDE 100 MEQ/L (98-107); CREATININE 2.09 MG/DL (0.50-1.00); GLOMERULAR FILTRATION RATE 23 ML/MIN (>89); GLUCOSE,RANDOM 131 MG/DL (74-106); SODIUM (NA) 138 MEQ/L (136-145)
[2017-12-01 05:45] LABS: ALKALINE PHOSPHATASE 67 U/L (45-117); BLOOD UREA NITROGEN 55 MG/DL (7-18); TOTAL BILIRUBIN ADULT 0.5 MG/DL (0.2-1.0); TOTAL PROTEIN 6.3 GM/DL (6.4-8.2)
[2017-12-01] MEDS: methylPREDNISolone SOD SUCC 125 MG/2 ML VIAL IV PUSH SCH ×3 (06:36→21:57)
--- NOTE | 2017-12-01 08:08 | HHI.PR ---
Subjective Remarks Nursing denies any deterioration since last night except for the fact that the patient is requiring up to 8 L on simple mask when going to sleep because she was refusing the BiPAP mask. Otherwise prior to this she was on 4 L being awake , allegedly her 4 L is her home O2 baseline. Patient herself has no new complaints, complaints of nurse about leg cramps, says leg cramps are chronic issues and does not take any specific medications for than just takes "what ever she has at home" Objective Vital Signs Date Time Temp Pulse Resp B/P (MAP) Pulse Ox O2 Delivery O2 Flow Rate FiO2 12/01/17 05:20 18 12/01/17 03:00 101 12/01/17 03:00 98.2 98 22 135/73 (93) 98 12/01/17 03:00 98 Simple Mask 8.00 11/30/17 23:00 95 11/30/17 23:00 98 Simple Mask 8.00 11/30/17 23:00 98.4 95 20 152/80 (104) 98 11/30/17 21:02 97 Simple Mask 10.00 11/30/17 19:00 99 Simple Mask 8.00 11/30/17 19:00 97.9 87 18 114/67 (83) 99 11/30/17 19:00 87 11/30/17 15:50 92 Nasal Cannula 6.00 11/30/17 15:48 98.0 94 22 116/66 (83) 97 11/30/17 15:00 94 11/30/17 11:39 94 Nasal Cannula 6.00 11/30/17 11:38 98.4 100 22 120/63 (82) 97 11/30/17 11:00 95 I/O 11/30/17 11/30/17 11/30/17 12/01/17 12/01/17 12/01/17 07:00 15:00 23:00 07:00 15:00 23:00 Intake Total 180 ml 1000 ml 200 ml Output Total 450 ml 575 ml 700 ml Balance -270 ml 425 ml -500 ml Intake Oral 180 ml 1000 ml 200 ml Output Urine Total 450 ml 575 ml 700 ml # Bowel Movements 0 0 0 Result Diagram: 12/01/17 0417 12/01/17416 Objective Remarks awake in bed no conversive dyspnea slightly diminshed BS in the bases BL, no simple mask A/P Assessment and Plan 82-year-old female with 1. ACute on Chronic Respiratory Failure w/ COPD Doing well on 4 L while awake, needing about 8 L when going to sleep as patient is refusing BiPAP, home baseline is 4 L Pulmonology following; was increased on steroids over the last 2 days to 60 mg every 8 hours of Solu-Medrol, can consider tapering down tomorrow Avoid beta-blockers in light of severe COPD on rocephin, can consider obtaining procalcitonin in next 24 hrs to see if abx can be discontinued NSTEMI: on aspirin and Plavix, lipitor and NTG and continue medical conservative treatment per cardiology. 2D echo Shows EF of 55% with moderate MR Appreciate cardiology recommendations. Recommend avoiding beta-micheal ( given COPD), on low-dose Cardizem. Dysphagia History of strictures, consulting GI . 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 Improving over the last few days steadily as IV diuresis has been held Monitor creatinine in a.m. DVT Prophylaxis: Heparin SQ David Molina MD December 01, 2017 08:08
[2017-12-01] MEDS: SODIUM CHLORIDE 0.9% FLUSH 10 ML FLUSH IV FLUSH SCH ×2 (09:00→21:56)
[2017-12-01] MEDS: DOCUSATE SODIUM 50 MG/SENNA 8.6 MG TAB PO SCH ×2 (09:00→21:55)
[2017-12-01] MEDS: RESP: BUDESONIDE 0.25 MG/2 ML NEB NEB SCH ×2 (09:21→19:25)
[2017-12-01] MEDS: FAMOTIDINE 20 MG TAB PO SCH ×2 (09:38→21:55)
[2017-12-01] MEDS: ASPIRIN 81 MG CHEW TAB CHEW SCH (09:38)
[2017-12-01] MEDS: CLOPIDOGREL 75 MG TAB PO SCH (09:39)
--- NOTE | 2017-12-01 13:57 | PD.CONS ---
HPI History of Present Illness This is a 82 year old F with PMH significant for HTN, Hyperlipidemia, CAD and O2 Dependent COPD who initially presented to the ER with complaints of SOB and was found to be hypoxic. Pt currently admitted to the hospital for NSTEMI and COPD exacerbation. Our service has been consulted to evaluate patient for dysphagia. Pt reports that she has had dysphagia for quite some time but that recently it has been getting worse and the food has been getting stuck in her throat and she has had to regurgitate most of it up. Also complaining of vomiting when she gets fatigued, states mostly noticeable after activity, even walking to the bathroom. She was seen by CONVICT GUARD this morning who made her NPO and noted her to be at risk for aspiration. Pt reports history of esophageal stricture and had the last dilatation done approximately [address] Tee in [facility]. Pt states she does not wish to have a feeding tube. Denies abdominal pain, constipation, diarrhea. According to chart, due to patient's lung disease cardiology had recommended medical management for the NSTEMI, pt is currently on Plavix and Heparin. It has also been noted that patient becomes hypoxic without oxygen and she is currently requiring 8 L via simple mask. Palliative is following patient and noted that patient was agreeable to Hospice and that she did not think she was strong enough for rehab. (Abeba Gross) PFSH Past Medical History Hypertension Hyperlipidemia Coronary artery disease Status post AR Severe COPD - O2 dependent Obstructive sleep apnea Chronic kidney disease . Past Surgical History Cholecystectomy - 2010 Cardiac stent - 2011 Lens Implant (Abeba Gross) Coded Allergies: No Known Allergies (Unverified , 02/21/12) Family History Father at age 57 from a stroke. Mother at the age of 90 from natural causes. A 20-year-old brother in [place]. A 57-year-old sister as well as a 62-year-old sister from [place]. . Social History PAST SOCIAL HISTORY: Negative for alcohol, tobacco or drugs. (Abeba Gross) Review of Systems Gastrointestinal: COMPLAINS OF: Nausea, Vomiting, Difficulty Swallowing, DENIES : Abdominal pain, Black stools, Bloody stools, Constipation, Diarrhea, Odynophagia, Swelling of Abdomen, Heartburn, Hematemesis (Abeba Gross) GI Exam Vitals I&O Vital Signs Date Time Temp Pulse Resp B/P (MAP) Pulse Ox O2 Delivery O2 Flow Rate FiO2 12/01/17 12:00 110 12/01/17 11:00 97.9 114 18 148/88 (108) 96 12/01/17 11:00 96 Simple Mask 8.00 12/01/17 11:00 114 12/01/17 09:20 99 Nasal Cannula 6.00 12/01/17 08:00 94 12/01/17 08:00 98.4 94 22 119/57 (77) 97 12/01/17 08:00 94 Nasal Cannula 6.00 12/01/17 05:20 18 12/01/17 03:00 101 12/01/17 03:00 98.2 98 22 135/73 (93) 98 12/01/17 03:00 98 Simple Mask 8.00 11/30/17 23:00 95 11/30/17 23:00 98 Simple Mask 8.00 11/30/17 23:00 98.4 95 20 152/80 (104) 98 11/30/17 21:02 97 Simple Mask 10.00 11/30/17 19:00 99 Simple Mask 8.00 11/30/17 19:00 97.9 87 18 114/67 (83) 99 11/30/17 19:00 87 11/30/17 15:50 92 Nasal Cannula 6.00 11/30/17 15:48 98.0 94 22 116/66 (83) 97 11/30/17 15:00 94 I/O 11/30/17 11/30/17 11/30/17 12/01/17 12/01/17 12/01/17 07:00 15:00 23:00 07:00 15:00 23:00 Intake Total 180 ml 1000 ml 200 ml Output Total 450 ml 575 ml 700 ml Balance -270 ml 425 ml -500 ml Intake Oral 180 ml 1000 ml 200 ml Output Urine Total 450 ml 575 ml 700 ml # Bowel Movements 0 0 0 Imaging Last Impressions Chest X-Ray 11/30/17 0000 Signed Impressions: Service Date/Time: November 10:46 - CONCLUSION: 1. There has been mild improvement in the pulmonary edema compared to the prior study. There is some mild pulmonary venous congestion. Dima Blake MD Abdomen Ultrasound 11/28/17 0000 Signed Impressions: Service Date/Time: Tuesday, November 28, 2017 13:57 - CONCLUSION: Abdominal aortic aneurysm. Mild increased echotexture of the renal cortices can be seen with medical renal disease. Mildly prominent common bile duct in this patient who is status post cholecystectomy. There is also mild prominence of the intrahepatic biliary tree. Stefano Zepeda MD Laboratory Test 12/01/17 04:17 White Blood Count 9.8 TH/MM3 Red Blood Count 3.92 MIL/MM3 Hemoglobin 11.8 GM/DL Hematocrit 35.5 % Mean Corpuscular Volume 90.5 FL Mean Corpuscular Hemoglobin 30.2 PG Mean Corpuscular Hemoglobin Concent 33.3 % Red Cell Distribution Width 14.9 % Platelet Count 206 TH/MM3 Mean Platelet Volume 10.6 FL Neutrophils (%) (Auto) 93.5 % Lymphocytes (%) (Auto) 2.8 % Monocytes (%) (Auto) 3.5 % Eosinophils (%) (Auto) 0.1 % Basophils (%) (Auto) 0.1 % Neutrophils # (Auto) 9.1 TH/MM3 Lymphocytes # (Auto) 0.3 TH/MM3 Monocytes # (Auto) 0.3 TH/MM3 Eosinophils # (Auto) 0.0 TH/MM3 Basophils # (Auto) 0.0 TH/MM3 CBC Comment DIFF FINAL Differential Comment Blood Urea Nitrogen 55 MG/DL Creatinine 2.09 MG/DL Random Glucose 131 MG/DL Total Protein 6.3 GM/DL Albumin 3.1 GM/DL Calcium Level 9.1 MG/DL Alkaline Phosphatase 67 U/L Aspartate Amino Transf (AST/SGOT) 32 U/L Alanine Aminotransferase (ALT/SGPT) 52 U/L Total Bilirubin 0.5 MG/DL Sodium Level 138 MEQ/L Potassium Level 4.5 MEQ/L Chloride Level 100 MEQ/L Carbon Dioxide Level 28.7 MEQ/L Anion Gap 9 MEQ/L Estimat Glomerular Filtration Rate 23 ML/MIN Date/Time Source Procedure Growth Status 11/25/17 23:28 Blood Peripheral Aerobic Blood Culture - Final NO GROWTH IN 5 DAYS Complete 11/25/17 23:28 Blood Peripheral Anaerobic Blood Culture - Final NO GROWTH IN 5 DAYS Complete Physical Examination HEENT: Normocephalic; atraumatic CHEST: Shallow, tachypneic - 8 L o2 via simple mask CARDIAC: Sinus tachycardia on monitor ABDOMEN: Soft, nondistended, nontender; bowel sounds active EXTREMITIES: No clubbing, cyanosis, or edema. SKIN: Normal; no rash; no jaundice. PEDIATRICS TEACHER: Alert and oriented times three. (Abeba Gross) Assessment and Plan Plan Assessment: - Dysphagia- has been going on for quite awhile but has been getting worse lately to the point that her food has been getting stuck and she has been having to regurgitate the food back up History of esophageal stricture with dilatation- last done [address] Tee in [facility] Pt states she does not want feeding tube - NSTEMI- cardiology recommended medical management due to lung disease. Pt on Plavix and Heparin - COPD exacerbation- pt currently on 8 L O2 via simple mask At this time pt is not stable for endoscopic procedures given amount of O2 she is currently on as well as NSTEMI on Plavix and Heparin Unsure of timing to discharge the pt to Hospice Plan: Modified barium swallow CONVICT GUARD recommendations Too unstable for EGD with dilatation at this time Can use NGT if needed for nutrition Pt does not want feeding tube Further recommendations will depend on patients potential discharge to hospice and clinical course Pt has been seen and examined by myself and Dr. Arcos and this note is written on her behalf (Abeba Gross) Physician Comments seen, examined agree with above ba swallow if the above work-up negative (Kadie Arcos MD) Abeba Gross December 01, 2017 13:57 Kadie Arcos MD December 01, 2017 18:14
[2017-12-01] MEDS: cefTRIAXone INJ 1,000 MG in SODIUM CHLORIDE 0.9% INJ 100 ML IV SCH (14:02)
--- NOTE | 2017-12-01 14:12 | HHI.NPPN ---
Subjective Renal Failure: Chronic, Acute, Stage IV Interval History Renal funciton is better. Family at bedside. Transition to hospice is being discussed. (Mellissa Garcia) Review of Systems General Constitutional: Fatigue (Mellissa Garcia) Objective Data Data Vital Signs Date Time Temp Pulse Resp B/P (MAP) Pulse Ox O2 Delivery O2 Flow Rate FiO2 12/01/17 12:00 110 12/01/17 11:00 97.9 114 18 148/88 (108) 96 12/01/17 11:00 96 Simple Mask 8.00 12/01/17 11:00 114 12/01/17 09:20 99 Nasal Cannula 6.00 12/01/17 08:00 94 12/01/17 08:00 98.4 94 22 119/57 (77) 97 12/01/17 08:00 94 Nasal Cannula 6.00 12/01/17 05:20 18 12/01/17 03:00 101 12/01/17 03:00 98.2 98 22 135/73 (93) 98 12/01/17 03:00 98 Simple Mask 8.00 11/30/17 23:00 95 11/30/17 23:00 98 Simple Mask 8.00 11/30/17 23:00 98.4 95 20 152/80 (104) 98 11/30/17 21:02 97 Simple Mask 10.00 11/30/17 19:00 99 Simple Mask 8.00 11/30/17 19:00 97.9 87 18 114/67 (83) 99 11/30/17 19:00 87 11/30/17 15:50 92 Nasal Cannula 6.00 11/30/17 15:48 98.0 94 22 116/66 (83) 97 11/30/17 15:00 94 (Mellissa aGrcia) -: 12/01/17 0417 12/01/17 0417 Imaging Last 72 hours Impressions Chest X-Ray 11/30/17 0000 Signed Impressions: Service Date/Time: November 10:46 - CONCLUSION: 1. There has been mild improvement in the pulmonary edema compared to the prior study. There is some mild pulmonary venous congestion. Dima Blake MD (Mellissa Garcia) Physical Exam General Appearance: Well Developed, Well Nourished, No Acute Distress, Comfortable Appearance Remarks Elderly female (Mellissa Garcia) Throat Throat Exam: Oral Mucosa [place] & Moist (Mellissa Garcia) Pulmonary Resp Exam: No Distress, Crackles, Diminished Breath Sounds Resp Remarks more on right lower lobe (Mellissa Garcai) Cardiology CV Exam: Normal Sinus Rhythm, Irregular (Mellissa Garcia) Gastrointestinal/Abdomen GI Exam: Soft, Non-Tender, Bowel Sounds Present (Mellissa Garcia) Musculoskeletal MS Exam: Joints Intact, Normal Tone, Unable to Ambulate (Mellissa Garcia) Integumentary Skin Exam: Clear, Warm, Dry, Intact (Mellissa Garcia) Extremeties Extremities Exam: No Edema, Pedal Pulses Palpable (Mellissa Garcia) Neurologic Neuro Exam: Alert, Awake, Oriented, Speech Clear, Moving All Extremities (Mellissa Garcia) Psychiatric Psych Exam: Appropriate Responses (Mellissa Garcia) Assessment/Plan Discussed Condition With: Patient, Spouse, Relative Assessment Summary: [place]/Acute Renal Failure, CHF, Hypertension, CKD Stage IV Problem List: (1) Acute worsening of stage 4 chronic kidney disease ICD Codes: N28.9 - Disorder of kidney and ureter, unspecified; N18.4 - Chronic kidney disease, stage 4 (severe) Plan: She has underlying CKD 4, baseline creatinine around 2 from 2012. Imaging shows bilateral renal atrophy; in addition she most likely has CKD secondary to nephrosclerosis. Acute worsening could be due to renal hypoperfusion, or increased renal vein pressure. Renal function is improving, near baseline. She is non oliguric. (2) CHF (congestive heart failure) ICD Codes: I50.9 - Heart failure, unspecified Status: Chronic Plan: s/p NSTEMI. Cardiology following. Appears not to be in overt overload. Currently not receiving scheduled doses of diuretics. Echo reviewed, she has pulmonary hypertension. Avoid IVF. Monitor fluid status. (3) NSTEMI (non-ST elevated myocardial infarction) ICD Codes: I21.4 - Non-ST elevation (NSTEMI) myocardial infarction Status: Acute Plan: Cardiology following. No intervention planned due to pulmonary issues and history of end stage COPD. continue supportive care. (4) COPD (chronic obstructive pulmonary disease) ICD Codes: J44.9 - Chronic obstructive pulmonary disease, unspecified Status: Acute Plan: Off BiPap currently, on oxygen now. Being treated for COPD exacerbation. Monitor respiratory status. Having issues while eating. May have esophageal stricture that is making eating difficult. Consider GI evaluation if it persists. She has required esophageal stretching in the past. Permanent Comment: End-stage Last Edited By: Agus Hart MD on November 27, 2017 11:55 Plan We will sign off at this time. Please call us if needed. (Mellissa Garcia) Plan patient was seen and examined. Renal function is stable, improved to her baseline. Agree with above assessment and plan. (Julian Cevallos MD) Problem Qualifiers (1) CHF (congestive heart failure): Qualified Codes: I50.32 - Chronic diastolic (congestive) heart failure (2) COPD (chronic obstructive pulmonary disease): Qualified Codes: J44.1 - Chronic obstructive pulmonary disease with (acute) exacerbation Mellissa Garcia December 01, 2017 14:12 Julian Cevallos MD December 01, 2017 15:44
[2017-12-01] MEDS ORDERED: LORazepam 0.5 MG TAB PO PRN (14:15)
--- NOTE | 2017-12-01 15:01 | HHI.HCPN ---
Reason for visit a. To assist with evaluation and management of symptoms including: dyspnea, debility, pain, dysphagia, anxiety b. To assist medical decision maker(s) with: better understanding of current medical conditions; weighing benefits/burdens of medical treatment options; making medical treatment decisions. . Subjective/Interval History Follow up visit on 82 year old female admitted with NSTEMI and COPD exacerbation. Cardiology recommending conservative medical management given patient's advance lung disease. Patient was initially requiring BiPAP but has been weaned to 6L oxygen via nasal cannula. Oxygen saturations in the mid 90s. Having ongoing dyspnea with minimal exertion and conversation. Nephrology following patient with acute on chronic renal disease. Patient has underlying CKD, stage 4 with a baseline creatinine of 2 in 2012. Renal functioning slowly improving. BUN: 55, creatinine 2.09, GFR 23 today 2017. US abdomen on 11/28/17 showed abdominal aortic aneurysm measuring 2.9 x 3.7 x 3.9 cm. Mild increased echotexture of the renal cortices can be seen with medical renal disease. Mildly prominent common bile duct in this patient who is status post cholecystectomy. There is also mild prominence in the intrahepatic biliary tree. Patient continues to have difficulty with oral intake. She states she has had dysphasia for quite some time, complaining that food is getting stuck in her esophagus and she has had to regurgitate it. Patient was made NPO s/p swallow evaluation secondary to risk for aspiration. Patient has a known history of esophageal stricture with dilatation done approximately [address] Tee in [facility]. GI was consulted; she is too unstable for EGD with dilatation at this time. Recommendations for modified barium swallow and ACCESS DEVELOPER recommendations. Pt states she does not wish to have a feeding tube, can use NGT if needed for nutrition. Patient and family met with hospice earlier today. The patient does not think she is strong enough for rehab but would like to optimize this hospitalization before being admitted to hospice. . Family/friend interactions See interval history . Advance Directives Living Will: Copy in medical record Health Care Surrogate: Copy in medical record Advance Directive Specifics Date completed: Nov, 2017 . Health Care Surrogate(s): Patient's spouse (Frank) is designated as the primary healthcare surrogate decision maker. Daughter (Sharon) would be the first alternate healthcare surrogate decision-maker, and son (Simone) would be the second alternate decision -maker. . Documented care wishes: Living will completed 11/28/17 states the patient is agreeable to short term intubation and mechanical ventilation but would not want prolonged ventilatory support. Patient would NOT agree to tracheostomy or PEG tube placement but would instead want to transition to comfort focused care at that time. The patient was unable to sign the document secondary to weakness and dyspnea ( patient becomes hypoxic with any care); conversations was witness by 3 persons. Daughter states these documented wished are consistent with conversations she has had with her mother previously regarding medical treatment goals. Copies of document are available in the patient's paper chart and have been scanned into the EMR. . Significant change in goals: Family met with hospice earlier today. Patient does not feel she is strong enough for rehab. However, family/patient would like to optimize current hospitalization before signing up with hospice. . Objective Vital Signs Date Time Temp Pulse Resp B/P (MAP) Pulse Ox O2 Delivery O2 Flow Rate FiO2 12/01/17 12:00 110 12/01/17 11:00 97.9 114 18 148/88 (108) 96 12/01/17 11:00 96 Simple Mask 8.00 12/01/17 11:00 114 12/01/17 09:20 99 Nasal Cannula 6.00 12/01/17 08:00 94 12/01/17 08:00 98.4 94 22 119/57 (77) 97 12/01/17 08:00 94 Nasal Cannula 6.00 12/01/17 05:20 18 12/01/17 03:00 101 12/01/17 03:00 98.2 98 22 135/73 (93) 98 12/01/17 03:00 98 Simple Mask 8.00 11/30/17 23:00 95 11/30/17 23:00 98 Simple Mask 8.00 11/30/17 23:00 98.4 95 20 152/80 (104) 98 11/30/17 21:02 97 Simple Mask 10.00 11/30/17 19:00 99 Simple Mask 8.00 11/30/17 19:00 97.9 87 18 114/67 (83) 99 11/30/17 19:00 87 11/30/17 15:50 92 Nasal Cannula 6.00 11/30/17 15:48 98.0 94 22 116/66 (83) 97 11/30/17 15:00 94 Intake & Output 12/01/17 12/01/17 07:00 19:00 Intake Total 200 ml Output Total 700 ml Balance -500 ml Intake Oral 200 ml Output Urine Total 700 ml # Bowel Movements 0 . Physical Exam CONSTITUTIONAL/GENERAL: This is a pale, elderly female patient in no acute distress TUBES/LINES/DRAINS: Pure wick catheter, nasal cannula, PIV SKIN: No jaundice, rashes, or lesions. Ecchymoses on upper extremities. No wounds seen anteriorly. Skin is thin, fragile; skin temperature appropriate. Not diaphoretic. HEAD: Atraumatic. Normocephalic. EYES: Pupils equal and round and reactive. Extraocular motions intact. No scleral icterus. No injection or drainage. Fundi not examined. ENT: Hearing grossly normal. Nose without bleeding or purulent drainage. NECK: Trachea midline. Supple, nontender. No palpable thyroid enlargement or nodularity. CARDIOVASCULAR: Regular rate. Intermittently tachycardic without no murmurs, gallops, or rubs. No JVD. Peripheral pulses symmetric. RESPIRATORY/CHEST: Oxygen saturations stable on 6L via nc. Breath sounds diminished bilaterally. No wheezes, rales, or rhonchi. GASTROINTESTINAL: Abdomen soft, non-tender, nondistended. + Burping. + Regurgitating food/drink. GENITOURINARY: Without palpable bladder distension. Pure wick catheter in place. MUSCULOSKELETAL: Extremities without clubbing or cyanosis. 1+ edema in BLE. LYMPHATICS: No palpable cervical or supraclavicular adenopathy. NEUROLOGICAL: Awake and alert. Follows commands. Cognitively sharp. Moves all extremities. PSYCHIATRIC: No obvious anxiety/depression. No apparent hallucinations or other psychotic thought process. . Diagnostic Tests Laboratory Laboratory Tests Test 11/28/17 14:53 11/28/17 16:35 11/28/17 22:44 11/29/17 04:20 Urine Color LIGHT-YELLOW (YELLW/STRAW) Urine Turbidity CLEAR (CLEAR) Urine pH 5.0 (5.0-8.5) Urine Specific [place] 1.009 (1.002-1.035) Urine Protein TRACE mg/dL (NEG-TRACE) Urine Glucose (UA) NEG mg/dL (NEG) Urine Ketones NEG mg/dL (NEG) Urine Occult Blood NEG (NEG) Urine Nitrite NEG (NEG) Urine Bilirubin NEG (NEG) Urine Urobilinogen LESS THAN 2.0 MG/DL (LESS Urine Leukocyte Esterase NEG (NEG) Urine WBC LESS THAN 1 /hpf (0-5) Urine Hyaline Casts 3 /lpf (RARE) Microscopic Urinalysis Comment CATH-CULT NOT IND Blood Gas Puncture Site RT RADIAL RT RADIAL Blood Gas Patient Temperature 98.6 98.6 Blood Gas HCO3 28 mmol/L (22-26) 28 mmol/L (22-26) Blood Gas Base Excess 2.3 mmol/L (-2-2) 3.0 mmol/L (-2-2) Blood Gas Oxygen Saturation 91 % (90-100) 94 % (90-100) Arterial Blood pH 7.34 (7.380-7.420) 7.36 (7.380-7.420) Arterial Blood Partial Pressure CO2 53 mmHg (38-42) 50 mmHg (38-42) Arterial Blood Partial Pressure O2 72 mmHg (61-120) 83 mmHg (61-120) Arterial Blood Oxygen Content 15.0 Vol % (12.0-20.0) 15.1 Vol % (12.0-20.0) Arterial Blood Carboxyhemoglobin 0.7 % (0-4) 0.8 % (0-4) Arterial Blood Methemoglobin 1.3 % (0-2) 1.4 % (0-2) Blood Gas Hemoglobin 11.6 G/DL (12.0-16.0) 11.4 G/DL (12.0-16.0) Oxygen Delivery Device BIPAP SIMPLE MASK Blood Gas Ventilator Setting [id number] Blood Gas Inspired Oxygen 70 % Blood Gas Liter Flow 10 L/M White Blood Count 10.0 TH/MM3 (4.0-11.0) Red Blood Count 3.92 MIL/MM3 (4.00-5.30) Hemoglobin 11.9 GM/DL (11.6-15.3) Hematocrit 36.1 % (35.0-46.0) Mean Corpuscular Volume 92.1 FL (80.0-100.0) Mean Corpuscular Hemoglobin 30.3 PG (27.0-34.0) Mean Corpuscular Hemoglobin Concent 32.9 % (32.0-36.0) Red Cell Distribution Width 14.5 % (11.6-17.2) Platelet Count 200 TH/MM3 (150-450) Mean Platelet Volume 10.7 FL (7.0-11.0) Neutrophils (%) (Auto) 93.8 % (16.0-70.0) Lymphocytes (%) (Auto) 2.9 % (9.0-44.0) Monocytes (%) (Auto) 3.1 % (0.0-8.0) Eosinophils (%) (Auto) 0.0 % (0.0-4.0) Basophils (%) (Auto) 0.2 % (0.0-2.0) Neutrophils # (Auto) 9.4 TH/MM3 (1.8-7.7) Lymphocytes # (Auto) 0.3 TH/MM3 (1.0-4.8) Monocytes # (Auto) 0.3 TH/MM3 (0-0.9) Eosinophils # (Auto) 0.0 TH/MM3 (0-0.4) Basophils # (Auto) 0.0 TH/MM3 (0-0.2) CBC Comment DIFF FINAL Differential Comment Blood Urea Nitrogen 50 MG/DL (7-18) Creatinine 2.51 MG/DL (0.50-1.00) Random Glucose 132 MG/DL (74-106) Total Protein 6.5 GM/DL (6.4-8.2) Albumin 3.2 GM/DL (3.4-5.0) Calcium Level 9.2 MG/DL (8.5-10.1) Magnesium Level 2.1 MG/DL (1.5-2.5) Alkaline Phosphatase 80 U/L (45-117) Aspartate Amino Transf (AST/SGOT) 68 U/L (15-37) Alanine Aminotransferase (ALT/SGPT) 73 U/L (10-53) Total Bilirubin 0.5 MG/DL (0.2-1.0) Sodium Level 139 MEQ/L (136-145) Potassium Level 4.4 MEQ/L (3.5-5.1) Chloride Level 99 MEQ/L (98-107) Carbon Dioxide Level 29.2 MEQ/L (21.0-32.0) Anion Gap 11 MEQ/L (5-15) Estimat Glomerular Filtration Rate 18 ML/MIN (>89) Test 11/30/17 04:30 12/01/17 04:17 White Blood Count 10.0 TH/MM3 (4.0-11.0) 9.8 TH/MM3 (4.0-11.0) Red Blood Count 3.77 MIL/MM3 (4.00-5.30) 3.92 MIL/MM3 (4.00-5.30) Hemoglobin 11.4 GM/DL (11.6-15.3) 11.8 GM/DL (11.6-15.3) Hematocrit 34.4 % (35.0-46.0) 35.5 % (35.0-46.0) Mean Corpuscular Volume 91.4 FL (80.0-100.0) 90.5 FL (80.0-100.0) Mean Corpuscular Hemoglobin 30.3 PG (27.0-34.0) 30.2 PG (27.0-34.0) Mean Corpuscular Hemoglobin Concent 33.2 % (32.0-36.0) 33.3 % (32.0-36.0) Red Cell Distribution Width 15.0 % (11.6-17.2) 14.9 % (11.6-17.2) Platelet Count 190 TH/MM3 (150-450) 206 TH/MM3 (150-450) Mean Platelet Volume 10.7 FL (7.0-11.0) 10.6 FL (7.0-11.0) Neutrophils (%) (Auto) 93.2 % (16.0-70.0) 93.5 % (16.0-70.0) Lymphocytes (%) (Auto) 3.0 % (9.0-44.0) 2.8 % (9.0-44.0) Monocytes (%) (Auto) 3.8 % (0.0-8.0) 3.5 % (0.0-8.0) Eosinophils (%) (Auto) 0.0 % (0.0-4.0) 0.1 % (0.0-4.0) Basophils (%) (Auto) 0.0 % (0.0-2.0) 0.1 % (0.0-2.0) Neutrophils # (Auto) 9.4 TH/MM3 (1.8-7.7) 9.1 TH/MM3 (1.8-7.7) Lymphocytes # (Auto) 0.3 TH/MM3 (1.0-4.8) 0.3 TH/MM3 (1.0-4.8) Monocytes # (Auto) 0.4 TH/MM3 (0-0.9) 0.3 TH/MM3 (0-0.9) Eosinophils # (Auto) 0.0 TH/MM3 (0-0.4) 0.0 TH/MM3 (0-0.4) Basophils # (Auto) 0.0 TH/MM3 (0-0.2) 0.0 TH/MM3 (0-0.2) CBC Comment DIFF FINAL DIFF FINAL Differential Comment Blood Urea Nitrogen 55 MG/DL (7-18) 55 MG/DL (7-18) Creatinine 2.39 MG/DL (0.50-1.00) 2.09 MG/DL (0.50-1.00) Random Glucose 135 MG/DL (74-106) 131 MG/DL (74-106) Total Protein 6.2 GM/DL (6.4-8.2) 6.3 GM/DL (6.4-8.2) Albumin 3.0 GM/DL (3.4-5.0) 3.1 GM/DL (3.4-5.0) Calcium Level 8.9 MG/DL (8.5-10.1) 9.1 MG/DL (8.5-10.1) Alkaline Phosphatase 71 U/L (45-117) 67 U/L (45-117) Aspartate Amino Transf (AST/SGOT) 47 U/L (15-37) 32 U/L (15-37) Alanine Aminotransferase (ALT/SGPT) 59 U/L (10-53) 52 U/L (10-53) Total Bilirubin 0.4 MG/DL (0.2-1.0) 0.5 MG/DL (0.2-1.0) Sodium Level 140 MEQ/L (136-145) 138 MEQ/L (136-145) Potassium Level 4.3 MEQ/L (3.5-5.1) 4.5 MEQ/L (3.5-5.1) Chloride Level 100 MEQ/L (98-107) 100 MEQ/L (98-107) Carbon Dioxide Level 31.0 MEQ/L (21.0-32.0) 28.7 MEQ/L (21.0-32.0) Anion Gap 9 MEQ/L (5-15) 9 MEQ/L (5-15) Estimat Glomerular Filtration Rate 19 ML/MIN (>89) 23 ML/MIN (>89) Phosphorus Level 4.1 MG/DL (2.5-4.9) . Result Diagram: 12/01/17 0417 12/01/17 0417 Imaging Last 72 hours Impressions Chest X-Ray 11/30/17 0000 Signed Impressions: Service Date/Time: November 10:46 - CONCLUSION: 1. There has been mild improvement in the pulmonary edema compared to the prior study. There is some mild pulmonary venous congestion. Dima Blake MD . Assessment and Plan Disease Oriented Problem List: (1) Hypertension (2) [place] (obstructive sleep apnea) (3) COPD (chronic obstructive pulmonary disease) (4) CHF (congestive heart failure) (5) CKD (chronic kidney disease), stage IV (6) NSTEMI (non-ST elevated myocardial infarction) Symptom Scale: (1) Debility 0-10 Scale: Unable to quantify (2) Dyspnea 0-10 Scale: Unable to quantify (3) Pain 0-10 Scale: Unable to quantify (4) Dysphagia 0-10 Scale: Unable to quantify (5) Anxiety Pertinent Non-Medical Issues Psychosocial: Patient is originally from [place]. She has 4 children (Sharon, Agnes , Simone and Jeremy). Simone and Jeremy lives in [place]. Sharon lives locally, and Agnes lives in [place]. Patient has been to her current (Frank) for 48 years. Frank was the patient's primary caregiver but he is currently receiving rehab and likely will be unable to care for her in the future. Family has been considering looking into assisted living facilities. Spiritual: Adventism bruce Legal: Patient currently has insight and judgment related to her medical conditions. In the event that she loses capacity for medical decision-making, the patient's spouse (Frank) is designated as the primary healthcare surrogate decision maker. Daughter (Sharon) would be the first alternate healthcare surrogate decision-maker, and son (Simone) would be the second alternate decision -maker. Ethical issues impacting care: No known ethical issues impacting care. . Important Contacts Frank Celis, : [phone] Sharon Bernice/Jose J, daughter: [phone] or [phone] (home) Simone Chand, son: [phone] . Prognosis Patient is an 82 year old female with extensive cardiopulmonary disease s/p NSTEMI. Unfortunately, she is not a candidate for invasive cardiac treatment due to the severity of her lung disease. Patient is significantly disabled and is high risk for ongoing decline and setbacks. Patient would be hospice appropriate if/when goals become comfort oriented. . Code Status: Full Code Plan * FULL CODE * Decision-making: Patient currently has insight and judgment related to her medical conditions. In the event that she loses capacity for medical decision- making,the patient's spouse (Frank) is designated as the primary healthcare surrogate decision maker. Daughter (Sharon) would be the first alternate healthcare surrogate decision-maker, and son (Simone) would be the second alternate decision-maker. * Palliative care met with the patient who indicated she would consent to short- term intubation and mechanical ventilation, but she would not want prolonged ventilator support. She indicated she would NOT be agreeable to tracheostomy or PEG tube placement but would instead want to transition to comfort focused care at that time. The patient has had similar Dr. Reed and Dr. Anderson. Daughter (Sharon) states my conversation with the patient is consistent with conversation she has had with the patient previously. * Patient and family met with hospice earlier today. The patient does not think she is strong enough for rehab but would like to optimize this hospitalization before being admitted to hospice. * Discussed current medical treatment goals with RN (Sonja) and Dr. Day * Symptom management: == Dyspnea: Patient has a history of severe lung disease and is oxygen dependent at home. Was weaned of BiPAP; oxygen saturations in the low to mid 90s on 6L O2 via nasal cannula. Having ongoing dyspnea with minimal exertion and conversation. On Solu-Medrol, scheduled and PRN DuoNebs and Pulmicort. == Dysphagia: Patient continues to have difficulty with oral intake. She states she has had dysphasia for quite some time, complaining that food is getting stuck in her esophagus and she has had to regurgitate it. Patient was made NPO s/p swallow evaluation secondary to risk for aspiration. Patient has a known history of esophageal stricture with dilatation done approximately [address] Tee in [facility]. GI was consulted; she is too unstable for EGD with dilatation at this time. Recommendations for modified barium swallow and ACCESS DEVELOPER recommendations. Pt states she does not wish to have a feeding tube, can use NGT if needed for nutrition. == Debility: Daughter states the patient's activity level is compromised secondary to dyspnea with minimal exertion. She reports her mother becomes SOB when walking short distance from the family room to the kitchen. Patient is able to dress herself but then needs to rest for nearly an hour. On the days the patient showers, "she'd done for the day " per family report. They are considering placement upon discharge because they do not feel the patient and her spouse can live alone any longer. Patient feels she is too weak for rehab. == Pain: Patient c/o acute chest pain on admission; pain has now resolved. Receiving nitroglycerin 2% ointment every 6 hours topically. PRN acetaminophen, [place] and IV morphine are ordered for breakthrough pain. 24 hour PRN Requirements = [place] 5-325mg PO x 2 Palliative care will monitor PRN requirements and make recommendations as needed. == Anxiety: Multifactoral. Likely secondary to dyspnea. Ordered PRN Lorazepam 0.5 mg PO/SL q8 hours * Palliative care will continue to follow this patient throughout her hospitalization to establish stress, assist with symptom management and clarification of medical treatment goals. . Debra Jorge December 01, 2017 15:01
--- NOTE | 2017-12-01 17:35 | HHI.PR ---
Subjective Remarks 82 YO WF, Frail, Severe COPD with hypoxia, Ch RF Has NSTMI Weaned to Simple mask No CP Feels little better today Has difficulty swallowing Objective Vital Signs Vital Signs Date Time Temp Pulse Resp B/P (MAP) Pulse Ox O2 Delivery O2 Flow Rate FiO2 12/01/17 16:06 98 Simple Mask 8.00 12/01/17 16:00 100 12/01/17 15:00 96 Simple Mask 8.00 12/01/17 15:00 98.2 97 16 144/77 (99) 96 12/01/17 15:00 98 12/01/17 12:00 110 12/01/17 11:00 97.9 114 18 148/88 (108) 96 12/01/17 11:00 96 Simple Mask 8.00 12/01/17 11:00 114 12/01/17 09:20 99 Nasal Cannula 6.00 12/01/17 08:00 94 12/01/17 08:00 98.4 94 22 119/57 (77) 97 12/01/17 08:00 94 Nasal Cannula 6.00 12/01/17 05:20 18 12/01/17 03:00 101 12/01/17 03:00 98.2 98 22 135/73 (93) 98 12/01/17 03:00 98 Simple Mask 8.00 11/30/17 23:00 95 11/30/17 23:00 98 Simple Mask 8.00 11/30/17 23:00 98.4 95 20 152/80 (104) 98 11/30/17 21:02 97 Simple Mask 10.00 11/30/17 19:00 99 Simple Mask 8.00 11/30/17 19:00 97.9 87 18 114/67 (83) 99 11/30/17 19:00 87 I/O 11/30/17 11/30/17 11/30/17 12/01/17 12/01/17 12/01/17 07:00 15:00 23:00 07:00 15:00 23:00 Intake Total 180 ml 1000 ml 200 ml Output Total 450 ml 575 ml 700 ml Balance -270 ml 425 ml -500 ml Intake Oral 180 ml 1000 ml 200 ml Output Urine Total 450 ml 575 ml 700 ml # Bowel Movements 0 0 0 Result Diagram: 12/01/1741612/01/17416 Objective Remarks GENERAL: Frail elderly WF, mild sob, weak SKIN: Warm and dry. HEAD: Normocephalic. EYES: No scleral icterus. No injection or drainage. NECK: Supple, trachea midline. No JVD or lymphadenopathy. CARDIOVASCULAR: Regular rate and rhythm without murmurs, gallops, or rubs. RESPIRATORY: Breath sounds equal bilaterally. No accessory muscle use. GASTROINTESTINAL: Abdomen soft, non-tender, nondistended. MUSCULOSKELETAL: No cyanosis, or edema. BACK: Nontender without obvious deformity. No CVA tenderness. A/P Assessment and Plan Severe COPD Hypoxia Ch Resp failure NSTMI CHF PLAN: Aerosol nebs IV Solumedrol Plavix 75 mg daily Dw Pt DW Will be sean risk for procedure Considering hospice. Carlos Chan MD December 01, 2017 17:35
[2017-12-02] VITALS (9 sets, daily range): BP systolic 130–148; BP diastolic 55–75; PULSE 66–92; RESP 16; TEMP 97.6–98.8; O2SAT 97–99
[2017-12-02] MEDS: NITROGLYCERIN 2% OINT 1 GM PACKET TOPICAL SCH ×3 (00:28→13:25)
[2017-12-02] MEDS: DILTIAZEM HCL 30 MG TAB PO SCH ×3 (00:28→13:25)
[2017-12-02] MEDS: INSULIN NovoLIN REGULAR SUPPLEMENTAL SCALE SQ SCH ×4 (01:00→13:00)
[2017-12-02] MEDS: RESP: ALBUTEROL 2.5 MG/IPRATROPIUM 0.5 MG NEB (SCH) NEB ×3 (03:36→11:19)
[2017-12-02] MEDS: HEPARIN SODIUM - SQ 10,000 UNITS/ML VIAL SQ SCH (03:50)
[2017-12-02 04:27] LABS: HEMATOCRIT 37.8 % (35.0-46.0); HEMOGLOBIN 12.5 GM/DL (11.6-15.3); MEAN CELL VOLUME 90.8 FL (80.0-100.0); MEAN CORPUSCULAR HEMOGLOBIN 30.1 PG (27.0-34.0); MEAN CORPUSCULAR HGB CONC 33.2 % (32.0-36.0); MEAN PLATELET VOLUME 10.9 FL (7.0-11.0); PLATELET COUNT 220 TH/MM3 (150-450); RED BLOOD COUNT 4.16 MIL/MM3 (4.00-5.30); RED CELL DISTRIBUTION WIDTH 15.1 % (11.6-17.2); WHITE BLOOD COUNT 10.7 TH/MM3 (4.0-11.0)
[2017-12-02 04:48] LABS: BICARBONATE 30.3 MEQ/L (21.0-32.0); CALCIUM 9.1 MG/DL (8.5-10.1); CREATININE 1.77 MG/DL (0.50-1.00)
[2017-12-02] MEDS: methylPREDNISolone SOD SUCC 125 MG/2 ML VIAL IV PUSH SCH ×2 (05:42→13:26)
[2017-12-02] MEDS: RESP: BUDESONIDE 0.25 MG/2 ML NEB NEB SCH (08:07)
[2017-12-02] MEDS: DOCUSATE SODIUM 50 MG/SENNA 8.6 MG TAB PO SCH (09:16)
[2017-12-02] MEDS: FAMOTIDINE 20 MG TAB PO SCH (09:16)
[2017-12-02] MEDS: ASPIRIN 81 MG CHEW TAB CHEW SCH (09:16)
[2017-12-02] MEDS: CLOPIDOGREL 75 MG TAB PO SCH (09:17)
--- NOTE | 2017-12-02 12:46 | HHI.PR ---
Subjective Remarks This is a 82 year old F with PMH significant for HTN, Hyperlipidemia, CAD and O2 Dependent COPD who initially presented to the ER with complaints of SOB and was found to be hypoxic. Pt currently admitted to the hospital for NSTEMI and COPD exacerbation. Seen by GI specialist due to Dysphagia but unable to perform any procedure to to her actual state, unstable for procedures. her family today elected for Hospice care. will be transferred later today. Objective Vital Signs Date Time Temp Pulse Resp B/P (MAP) Pulse Ox O2 Delivery O2 Flow Rate FiO2 12/02/17 11:00 98.8 92 16 148/74 (98) 97 12/02/17 11:00 98 Simple Mask 8.00 12/02/17 08:09 98 Simple Mask 8.00 12/02/17 07:00 98.4 92 16 144/75 (98) 98 12/02/17 07:00 98 Simple Mask 8.00 12/02/17 04:03 98.2 66 16 130/55 (80) 99 12/02/17 03:25 97 Simple Mask 8.00 12/02/17 03:00 80 12/02/17 02:00 88 12/02/17 01:00 88 12/02/17 00:00 97.6 91 16 138/65 (89) 98 12/02/17 00:00 98 Simple Mask 8.00 12/02/17 00:00 92 12/01/17 23:00 102 12/01/17 22:55 16 12/01/17 22:00 98 12/01/17 21:00 102 12/01/17 20:30 97.6 97 16 161/76 (104) 97 12/01/17 20:00 100 12/01/17 20:00 97 Simple Mask 8.00 12/01/17 19:00 103 12/01/17 16:06 98 Simple Mask 8.00 12/01/17 16:00 100 12/01/17 15:00 96 Simple Mask 8.00 12/01/17 15:00 98.2 97 16 144/77 (99) 96 12/01/17 15:00 98 I/O 12/01/17 12/01/17 12/01/17 12/02/17 12/02/17 12/02/17 07:00 15:00 23:00 07:00 15:00 23:00 Intake Total 200 ml 240 ml 75 ml Output Total 700 ml 350 ml 290 ml Balance -500 ml -110 ml -215 ml Intake Oral 200 ml 240 ml 75 ml Output Urine Total 700 ml 350 ml 290 ml # Bowel Movements 0 0 Result Diagram: 12/02/177 12/02/17 0317 Imaging Last Impressions Chest X-Ray 11/30/17 0000 Signed Impressions: Service Date/Time: November 10:46 - CONCLUSION: 1. There has been mild improvement in the pulmonary edema compared to the prior study. There is some mild pulmonary venous congestion. Dima Blake MD Abdomen Ultrasound 11/28/17 0000 Signed Impressions: Service Date/Time: Tuesday, November 28, 2017 13:57 - CONCLUSION: Abdominal aortic aneurysm. Mild increased echotexture of the renal cortices can be seen with medical renal disease. Mildly prominent common bile duct in this patient who is status post cholecystectomy. There is also mild prominence of the intrahepatic biliary tree. Stefano Zepeda MD Procedures None Other Results Laboratory Tests Test 11/25/17 00:25 11/25/17 02:37 11/26/17 00:19 11/26/17 07:20 Total Creatine Kinase 183 U/L Creatine Kinase MB 13.7 NG/ML Lipase 143 U/L Prothrombin Time 11.4 SEC Prothromb Time International Ratio 1.1 RATIO Digoxin Level LESS THAN 0.1 NG/ML Troponin I 6.82 NG/ML Test 11/26/17 11:03 11/28/17 13:27 11/28/17 14:53 11/28/17 16:35 Activated Partial Thromboplast Time 55.6 SEC B-Type Natriuretic Peptide 960 PG/ML Hepatitis A IgM Antibody NONREACTIVE Hepatitis B Surface Antigen NONREACTIVE Hepatitis B Core IgM Antibody NONREACTIVE Hepatitis C IgG Antibody NONREACTIVE Urine Color LIGHT-YELLOW Urine Turbidity CLEAR Urine pH 5.0 Urine Specific [place] 1.009 Urine Protein TRACE mg/dL Urine Glucose (UA) NEG mg/dL Urine Ketones NEG mg/dL Urine Occult Blood NEG Urine Nitrite NEG Urine Bilirubin NEG Urine Urobilinogen LESS THAN 2.0 MG/DL Urine Leukocyte Esterase NEG Urine WBC LESS THAN 1 /hpf Urine Hyaline Casts 3 /lpf Microscopic Urinalysis Comment CATH-CULT NOT IND Blood Gas Ventilator Setting [id number] Blood Gas Inspired Oxygen 70 % Test 11/28/17 22:44 11/29/17 04:20 12/01/17 04:17 12/02/17 03:17 Blood Gas Puncture Site RT RADIAL Blood Gas Patient Temperature 98.6 Blood Gas HCO3 28 mmol/L Blood Gas Base Excess 3.0 mmol/L Blood Gas Oxygen Saturation 94 % Arterial Blood pH 7.36 Arterial Blood Partial Pressure CO2 50 mmHg Arterial Blood Partial Pressure O2 83 mmHg Arterial Blood Oxygen Content 15.1 Vol % Arterial Blood Carboxyhemoglobin 0.8 % Arterial Blood Methemoglobin 1.4 % Blood Gas Hemoglobin 11.4 G/DL Oxygen Delivery Device SIMPLE MASK Blood Gas Liter Flow 10 L/M Blood Urea Nitrogen 50 MG/DL 55 MG/DL 56 MG/DL Creatinine 2.51 MG/DL 2.09 MG/DL 1.77 MG/DL Random Glucose 132 MG/DL 131 MG/DL 119 MG/DL Total Protein 6.5 GM/DL 6.3 GM/DL Albumin 3.2 GM/DL 3.1 GM/DL Calcium Level 9.2 MG/DL 9.1 MG/DL 9.1 MG/DL Magnesium Level 2.1 MG/DL Alkaline Phosphatase 80 U/L 67 U/L Aspartate Amino Transf (AST/SGOT) 68 U/L 32 U/L Alanine Aminotransferase (ALT/SGPT) 73 U/L 52 U/L Total Bilirubin 0.5 MG/DL 0.5 MG/DL Sodium Level 139 MEQ/L 138 MEQ/L 141 MEQ/L Potassium Level 4.4 MEQ/L 4.5 MEQ/L 4.2 MEQ/L Chloride Level 99 MEQ/L 100 MEQ/L 101 MEQ/L Carbon Dioxide Level 29.2 MEQ/L 28.7 MEQ/L 30.3 MEQ/L Neutrophils (%) (Auto) 93.5 % Lymphocytes (%) (Auto) 2.8 % Monocytes (%) (Auto) 3.5 % Eosinophils (%) (Auto) 0.1 % Basophils (%) (Auto) 0.1 % Neutrophils # (Auto) 9.1 TH/MM3 Lymphocytes # (Auto) 0.3 TH/MM3 Monocytes # (Auto) 0.3 TH/MM3 Eosinophils # (Auto) 0.0 TH/MM3 Basophils # (Auto) 0.0 TH/MM3 CBC Comment DIFF FINAL Differential Comment Phosphorus Level 4.1 MG/DL White Blood Count 10.7 TH/MM3 Red Blood Count 4.16 MIL/MM3 Hemoglobin 12.5 GM/DL Hematocrit 37.8 % Mean Corpuscular Volume 90.8 FL Mean Corpuscular Hemoglobin 30.1 PG Mean Corpuscular Hemoglobin Concent 33.2 % Red Cell Distribution Width 15.1 % Platelet Count 220 TH/MM3 Mean Platelet Volume 10.9 FL Anion Gap 10 MEQ/L Estimat Glomerular Filtration Rate 27 ML/MIN Objective Remarks GENERAL: Frail elderly WF, mild sob, weak SKIN: Warm and dry. HEAD: Normocephalic. EYES: No scleral icterus. No injection or drainage. NECK: Supple, trachea midline. No JVD or lymphadenopathy. CARDIOVASCULAR: Regular rate and rhythm without murmurs, gallops, or rubs. RESPIRATORY: Breath sounds equal bilaterally. No accessory muscle use. GASTROINTESTINAL: Abdomen soft, non-tender, nondistended. MUSCULOSKELETAL: No cyanosis, or edema. BACK: Nontender without obvious deformity. No CVA tenderness. Medications and IVs Current Medications Medications (Trade) Dose Ordered Sig/Leo Route Start Time Stop Time Status Last Admin (NS Flush) 2 ml UNSCH PRN IV FLUSH 11/26/17 02:45 (NS Flush) 2 ml BID IV FLUSH 11/26/17 09:00 12/01/17 21:56 (Tylenol) 650 mg Q6H PRN PO 11/26/17 02:45 ([place] 5-325 Mg) 1 tab Q4H PRN PO 11/26/17 02:45 12/01/17 21:55 (Morphine Inj) 2 mg Q3H PRN IV PUSH 11/26/17 02:45 ([place]-Colace) 1 tab BID PO 11/26/17 09:00 12/02/17 09:16 (Senokot) 17.2 mg Q12H PRN PO 11/26/17 02:45 (Dulcolax Supp) 10 mg DAILY PRN RECTAL 11/26/17 02:45 (Lactulose Liq) 30 ml DAILY PRN PO 11/26/17 02:45 (Aspirin Chew) 81 mg DAILY CHEW 11/26/17 09:00 12/02/17 09:16 (Lipitor) 80 mg HS PO 11/26/17 21:00 Future Hold 11/27/17 21:13 (Nitroglycerin 2% Oint) 0.5 inch Q6HR TOPICAL 11/26/17 18:00 12/02/17 05:42 (Cardizem) 30 mg Q6HR PO 11/26/17 18:00 12/02/17 05:42 (Plavix) 75 mg DAILY PO 11/27/17 09:00 12/02/17 09:17 (Heparin Inj) 5,000 units Q12H SQ 11/27/17 15:00 12/02/17 03:50 Ceftriaxone Sodium 1000 mg/ Sodium Chloride 100 ml @ 200 mls/hr Q24H IV 11/28/17 14:00 12/01/17 14:02 (D50w (Vial) Inj) 50 ml UNSCH PRN IV PUSH 11/28/17 13:00 (Glucagon Inj) 1 mg UNSCH PRN OTHER 11/28/17 13:00 (NovoLIN R SUPPLEMENTAL SCALE) 1 Q4H SQ 11/28/17 13:00 11/30/17 11:59 (Pulmicort Respule Neb) 0.25 mg Q12HR NEB NEB 11/28/17 13:00 12/02/17 08:07 (Duoneb Neb) 1 ampule Q4HR NEB NEB 11/28/17 16:00 12/02/17 11:19 (Duoneb Neb) 1 ampule Q2HR NEB PRN NEB 11/28/17 13:15 (Pepcid) 10 mg BID PO 11/29/17 21:00 12/02/17 09:16 (SoluMEDROL INJ) 60 mg Q8HR IV PUSH 11/29/17 22:00 12/02/17 05:42 (Ativan) 0.5 mg Q8H PRN PO 12/01/17 14:15 A/P Assessment and Plan 82-year-old female with 1. Acute on Chronic Respiratory Failure w/ COPD Doing well on 4 L while awake, needing about 8 L when going to sleep as patient is refusing BiPAP, home baseline is 4 L Pulmonology following; was increased on steroids over the last 2 days to 60 mg every 8 hours of Solu-Medrol, can consider tapering down tomorrow Avoid beta-blockers in light of severe COPD on Rocephin, can consider obtaining procalcitonin in next 24 hrs to see if abx can be discontinued NSTEMI: on aspirin and Plavix, lipitor and NTG and continue medical conservative treatment per cardiology. 2D echo Shows EF of 55% with moderate MR Appreciate cardiology recommendations. Recommend avoiding beta-micheal ( given COPD), on low-dose Cardizem. Dysphagia History of strictures, GI specialist consulted but not able to perform any procedure, due to that she is unstable. . 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 Improving over the last few days steadily as IV diuresis has been held Monitor creatinine in a.m. DVT Prophylaxis: Heparin SQ Discharge Planning Discharge to Hospice today. appreciated adult specialist management. Valentín Morgan MD December 02, 2017 12:46
--- NOTE | 2017-12-02 13:11 | HHI.DS ---
Discharge Summary Admission Date November 26, 2017 at 02:45 Discharge Date: December 02, 2017 Admitting Diagnosis Non-ST elevation PR/CHF (1) NSTEMI (non-ST elevated myocardial infarction) ICD Code: I21.4 - Non-ST elevation (NSTEMI) myocardial infarction Diagnosis: Principal Status: Acute (2) CHF (congestive heart failure) ICD Code: I50.9 - Heart failure, unspecified Diagnosis: Principal Status: Chronic (3) COPD (chronic obstructive pulmonary disease) ICD Code: J44.9 - Chronic obstructive pulmonary disease, unspecified Diagnosis: Principal Status: Acute (4) Hypoxia ICD Code: R09.02 - Hypoxemia Diagnosis: Principal Status: Chronic (5) Renal insufficiency ICD Code: N28.9 - Disorder of kidney and ureter, unspecified Diagnosis: Principal Status: Acute (6) CKD (chronic kidney disease), stage IV ICD Code: N18.4 - Chronic kidney disease, stage 4 (severe) Diagnosis: Principal Status: Chronic Procedures None Brief History - From Admission This is an 82-year-old female with a PMH of HTN, Hyperlipidemia, CAD and O2 Dependent COPD who was brought to the ER by EMS secondary to c/o SOB and chest pain starting earlier this evening. Upon EMS arrival, pt hypoxic w/ O2 sat 70's , attempted CPAP but did not tolerate due to vomiting. Also noted to have multiple PVCs and started on Lidocaine by EMS. Upon arrival, BP 107/54, HR 94, O2 sat 82% on RA, Afebrile. ABG w/ pH 7.3, PCO2 43, PO2 68 on 4L NC, significant respiratory distress w/ persistent hypoxia and started on BIPAP in the ER. CBC unremarkable. Creatinine 2.94, previously 2.02 on 02/22/2012. Troponin 6.28. BNP 1944. CXR with no significant finding. Follows w/ Dr. Veras and Dr. Chan as outpatient. Cardiology consulted for NSTEMI, started on Heparin gtt. Currently chest pain free, SOB improved. No h/o CHF. Pt is very good historian w/ excellent knowledge of medical conditions, Grandson at bedside also very helpful. CBC/BMP: 12/02/17 0317 12/02/17 0317 Significant Findings Laboratory Tests Test 11/30/17 04:30 12/01/17 04:17 12/02/17 03:17 Red Blood Count 3.77 MIL/MM3 (4.00-5.30) 3.92 MIL/MM3 (4.00-5.30) Hemoglobin 11.4 GM/DL (11.6-15.3) Hematocrit 34.4 % (35.0-46.0) Neutrophils (%) (Auto) 93.2 % (16.0-70.0) 93.5 % (16.0-70.0) Lymphocytes (%) (Auto) 3.0 % (9.0-44.0) 2.8 % (9.0-44.0) Neutrophils # (Auto) 9.4 TH/MM3 (1.8-7.7) 9.1 TH/MM3 (1.8-7.7) Lymphocytes # (Auto) 0.3 TH/MM3 (1.0-4.8) 0.3 TH/MM3 (1.0-4.8) Blood Urea Nitrogen 55 MG/DL (7-18) 55 MG/DL (7-18) 56 MG/DL (7-18) Creatinine 2.39 MG/DL (0.50-1.00) 2.09 MG/DL (0.50-1.00) 1.77 MG/DL (0.50-1.00) Random Glucose 135 MG/DL (74-106) 131 MG/DL (74-106) 119 MG/DL (74-106) Total Protein 6.2 GM/DL (6.4-8.2) 6.3 GM/DL (6.4-8.2) Albumin 3.0 GM/DL (3.4-5.0) 3.1 GM/DL (3.4-5.0) Aspartate Amino Transf (AST/SGOT) 47 U/L (15-37) Alanine Aminotransferase (ALT/SGPT) 59 U/L (10-53) Estimat Glomerular Filtration Rate 19 ML/MIN (>89) 23 ML/MIN (>89) 27 ML/MIN (>89) Imaging Last Impressions Chest X-Ray 11/30/17 0000 Signed Impressions: Service Date/Time: November 10:46 - CONCLUSION: 1. There has been mild improvement in the pulmonary edema compared to the prior study. There is some mild pulmonary venous congestion. Dima Blake MD Abdomen Ultrasound 11/28/17 0000 Signed Impressions: Service Date/Time: Tuesday, November 28, 2017 13:57 - CONCLUSION: Abdominal aortic aneurysm. Mild increased echotexture of the renal cortices can be seen with medical renal disease. Mildly prominent common bile duct in this patient who is status post cholecystectomy. There is also mild prominence of the intrahepatic biliary tree. Stefano Zepeda MD PE at Discharge GENERAL: Frail elderly WF, mild sob, weak SKIN: Warm and dry. HEAD: Normocephalic. EYES: No scleral icterus. No injection or drainage. NECK: Supple, trachea midline. No JVD or lymphadenopathy. CARDIOVASCULAR: Regular rate and rhythm without murmurs, gallops, or rubs. RESPIRATORY: Breath sounds equal bilaterally. No accessory muscle use. GASTROINTESTINAL: Abdomen soft, non-tender, nondistended. MUSCULOSKELETAL: No cyanosis, or edema. BACK: Nontender without obvious deformity. No CVA tenderness. Hospital Course This is a 82 year old F with PMH significant for HTN, Hyperlipidemia, CAD and O2 Dependent COPD who initially presented to the ER with complaints of SOB and was found to be hypoxic. Pt currently admitted to the hospital for NSTEMI and COPD exacerbation. Seen by GI specialist due to Dysphagia but unable to perform any procedure to to her actual state, unstable for procedures. her family today elected for Hospice care. will be transferred later today. Assessment and Plan 82-year-old female with 1. Acute on Chronic Respiratory Failure w/ COPD Doing well on 4 L while awake, needing about 8 L when going to sleep as patient is refusing BiPAP, home baseline is 4 L Pulmonology following; was increased on steroids over the last 2 days to 60 mg every 8 hours of Solu-Medrol, can consider tapering down tomorrow Avoid beta-blockers in light of severe COPD on Rocephin, can consider obtaining procalcitonin in next 24 hrs to see if abx can be discontinued NSTEMI: on aspirin and Plavix, lipitor and NTG and continue medical conservative treatment per cardiology. 2D echo Shows EF of 55% with moderate MR Appreciate cardiology recommendations. Recommend avoiding beta-micheal ( given COPD), on low-dose Cardizem. Dysphagia History of strictures, GI specialist consulted but not able to perform any procedure, due to that she is unstable. . 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 Improving over the last few days steadily as IV diuresis has been held Monitor creatinine in a.m. DVT Prophylaxis: Heparin SQ Discharge Planning Discharge to Hospice today. appreciated youth specialist management. Pt Condition on Discharge: Deteriorating Discharge Disposition: Hospice/Med Facility Discharge Time: > 30 minutes Discharge Instructions DIET: Follow Instructions for: As Tolerated, No Restrictions Activities you can perform: Regular-No Restrictions Valentín Morgan MD December 02, 2017 13:11
[2017-12-02] MEDS: cefTRIAXone INJ 1,000 MG in SODIUM CHLORIDE 0.9% INJ 100 ML IV SCH (13:26)
== END 2017-12-02 15:15 | disposition hospice, inpatient (51) | DRG 280 ==
LOC: NEPC 23:14 → NEDA 11-26 02:45 → HCVI 11-26 03:45 → HCPC 12-01 10:35
PROVIDERS: ADMIT Internal Medicine; ATTEND Internal Medicine
PROC: 5A09357 Assistance with Respiratory Ventilation, Less than 24 Consecutive Hours, Continuous Positive Airway Pressure (ICD-10-PCS; principal; 2017-11-26)
DX: I21.4 Non-ST elevation (NSTEMI) myocardial infarction (principal); J96.21 Acute and chronic respiratory failure with hypoxia; J96.02 Acute respiratory failure with hypercapnia; I13.0 Hypertensive heart and chronic kidney disease with heart failure and stage 1 through stage 4 chronic kidney disease, or unspecified chronic kidney disease; N18.4 Chronic kidney disease, stage 4 (severe); N17.9 Acute kidney failure, unspecified; I50.32 Chronic diastolic (congestive) heart failure; J44.1 Chronic obstructive pulmonary disease with (acute) exacerbation; R13.10 Dysphagia, unspecified; I25.2 Old myocardial infarction; Z99.81 Dependence on supplemental oxygen; I25.10 Atherosclerotic heart disease of native coronary artery without angina pectoris; E78.5 Hyperlipidemia, unspecified; Z51.5 Encounter for palliative care
CPT/HCPCS: 36600; 71045; 76700; 76937; 80048; 80053; 80074; 80162; 81001; 82550; 82552; 82805; 82948; 83690; 83735; 83880; 84100; 84484; 85025; 85027; 85610; 85730; 87040; 93005; 93306; 94002; 94003; 94150; 94640; 94664; J0696; J1644; J1940; J2920; J2930; J7626